=== PATIENT | female | born 1940 | race Two or more races ===

== ENCOUNTER → 2020-12-16 | Outpatient (CLI) | payer MEDICARE ==
[2020-12-16 13:03] LABS: Basophils # (A) 0.1 k/uL (0-0.2); Basophils % (A) 1 %; Eosinophils # (A) 0.3 k/uL (0-0.7); Eosinophils % (A) 3 %; HCT 42.8 % (34.0-46.0); HGB 13.7 gm/dL (11.4-16.0); Lymphocytes # (A) 2.5 k/uL (1.0-4.8); Lymphocytes % (A) 26 %; MCH 29.7 pg (25.0-35.0); MCV 92.9 fL (80.0-100.0); Mean Platelet Volume 6.6; Monocytes # (A) 0.5 k/uL (0-1.0); Monocytes % (A) 5 %; Neutrophils # (A) 6.2 k/uL (1.3-7.7); Neutrophils % (A) 64 %; Platelet Count 406 k/uL (150-450); RBC 4.61 m/uL (3.80-5.40); RDW 13.5 % (11.5-15.5); WBC 9.7 k/uL (3.8-10.6)
[2020-12-16 13:14] LABS: Appearance,Urine Clear (Clear); Bacteria,Urine Rare /hpf; Bilirubin,Urine Negative (Negative); Blood,Urine Negative (Negative); Color,Urine Yellow; Glucose,Urine (UA) Negative (Negative); Hyaline Casts,Urine 3 /lpf (0-2); Ketones,Urine Negative (Negative); Leukocyte Esterase,Urine Large (Negative); Mucus,Urine Rare /hpf; Nitrite,Urine Negative (Negative); Protein,Urine Trace (Negative); RBC,Urine 2 /hpf (0-5); Squamous Epithelial Cell,Urine 5 /hpf (0-4); Urobilinogen,Urine <2.0 mg/dL (<2.0); WBC,Urine 9 /hpf (0-5)
[2020-12-16 13:21] LABS: Albumin 4.2 g/dL (3.5-5.0); Calcium 10.6 mg/dL (8.4-10.2); Potassium 3.8 mmol/L (3.5-5.1); Total Bilirubin 0.5 mg/dL (0.2-1.3); Total Protein 6.6 g/dL (6.3-8.2)
[2020-12-16 13:26] LABS: INR 0.9 (<1.2); Partial Thromboplastin Time 25.1 sec (22.0-30.0); Prothrombin Time 9.7 sec (9.0-12.0)
== END | disposition home or self-care (01) ==
LOC: LABPAT 11:46
PROVIDERS: ATTEND Orthopaedic Surgery Orthopaedic Surgery of the Spine
DX: Z01.818 Encounter for other preprocedural examination (principal); M48.02 Spinal stenosis, cervical region
CPT/HCPCS: 36415; 80053; 81001; 85025; 85610; 85730; 86850; 86900; 86901

== ENCOUNTER 2020-12-23 07:31 | Day surgery (SDC) | payer MEDICARE ==
[2020-12-22 09:40] VITALS: BMI 20.2
[~2020-12-23 07:31] MED LIST: DEXAMETHASONE SOD PHOSPHATE 4 MG/ML 1 ML VIAL IV PRN; LIDOCAINE 1% (10MG/ML) FOR IV START INTRADERMA PRN; ONDANSETRON 4 MG/2 ML VIAL IVP PRN; ceFAZolin 1,000 MG in SODIUM CHLORIDE 0.9% IRRIGATIO 1,000 ML IRRIGATION PRN
[2020-12-23] MEDS: ONDANSETRON 4 MG/2 ML VIAL IVP PRN ×2 (08:20→11:20)
[2020-12-23] MEDS: LACTATED RINGERS 1,000 ML IV SCH ×2 (08:20→22:04)
[2020-12-23] MEDS ORDERED: PROPOFOL 10 MG/ML 20 ML VIAL IV ONE (08:26)
[2020-12-23] MEDS ORDERED: DEXAMETHASONE SOD PHOSPHATE 10 MG/ML 1 ML VIAL ONE (08:26)
[2020-12-23] MEDS ORDERED: MIDAZOLAM 2 MG/2 ML VIAL ONE (08:26)
[2020-12-23] MEDS ORDERED: LIDOCAINE 1% INJ 10MG/ML (20 ML MDV) ONE (08:26)
[2020-12-23] MEDS ORDERED: ROCURONIUM 10 MG/ML (5 ML VIAL) IV ONE (08:26)
[2020-12-23] MEDS ORDERED: fentaNYL (PF) 50 MCG/ML 2 ML AMP ONE (08:26)
[2020-12-23] MEDS ORDERED: SUCCINYLCHOLINE CHLORIDE 100 MG/5 ML SYR IV ONE (08:26)
[2020-12-23] MEDS ORDERED: ePHEDrine SULFATE/0.9% NACL/PF 50 MG/5 ML SYRINGE IV ONE (08:26)
[2020-12-23] MEDS ORDERED: GELATIN SPONGE,ABSORB (LARGE) 1 EACH SPONGE TOPICAL ONE (08:28)
[2020-12-23] MEDS ORDERED: THROMBIN (BOVINE) 5,000 UNIT VIAL TOPICAL ONE (08:28)
[2020-12-23] MEDS ORDERED: LIDOCAINE 0.5%-EPI 1:200,000 50 ML VIAL SQ ONE (08:28)
[2020-12-23] MEDS ORDERED: LACTATED RINGERS 1,000 ML IV ONE (09:07)
--- NOTE | 2020-12-23 09:47 | XR ---
EXAMINATION TYPE: XR cervical spine 1V DATE OF EXAM: 12/23/2020 COMPARISON: NONE HISTORY: Needle placement TECHNIQUE: One view submitted FINDINGS: There is a significant anterolisthesis of L4 on L5 measuring 4 oh meters. Metallic instrume nt is seen anterior to the L4-L5 disc interspace. Endotracheal tube suggested. Prevertebral soft tiss ue thickening noted. IMPRESSION: Intraoperative localization
[2020-12-23] MEDS: HYDROmorphone 0.5 MG/0.5 ML SYRINGE IVP PRN ×4 (11:20→11:46)
[2020-12-23] MEDS ORDERED: MAGNESIUM HYDROXIDE 2,400 MG/10 ML CUP PO PRN (11:23)
[2020-12-23] MEDS ORDERED: HYDROmorphone 0.5 MG/0.5 ML SYRINGE IVP PRN (11:23)
[2020-12-23] MEDS ORDERED: ONDANSETRON 4 MG/2 ML VIAL IVP PRN (11:23)
[2020-12-23] MEDS ORDERED: ACETAMINOPHEN TAB 325 MG TAB PO PRN (11:23)
[2020-12-23] MEDS ORDERED: ZOLPIDEM 5 MG TAB PO PRN (11:25)
--- NOTE | 2020-12-23 11:32 | P.OP ---
Date of Procedure: 12/23/20 Preoperative Diagnosis: Severe cervical stenosis C3/4, C4/5,C5/6
--- NOTE | 2020-12-23 11:40 | P.OP ---
Date of Procedure: 12/23/20 Preoperative Diagnosis: Cervical myelopathy, severe cervical stenosis C3 4 C4 5 C5 6, myelomalacia, spondylolisthesis C3 4 C4 5, degenerative disc disease, upper extremity radiculopathy, upper extremity weakness, neck pain Postoperative Diagnosis: Same Anesthesia: GETA Pathology: none sent Condition: stable Disposition: PACU Description of Procedure: BRIEF OPERATIVE NOTE Preoperative Diagnosis:Cervical myelopathy, severe cervical stenosis C3 4 C4 5 C5 6, myelomalacia, spondylolisthesis C3 4 C4 5, degenerative disc disease, upper extremity radiculopathy, upper extremity weakness, neck pain, cervical kyphosis Postoperative Diagnosis:Cervical myelopathy, severe cervical stenosis C3 4 C4 5 C5 6, myelomalacia, spondylolisthesis C3 4 C4 5, degenerative disc disease, upper extremity radiculopathy, upper extremity weakness, neck pain, cervical kyphosis Procedure: Anterior cervical decompression with discectomy and with partial C4 corpectomy with approximate two thirds of the C4 vertebral body removed and fusion C3 4 C4 5 C5 6 Placement of interbody graft C3 4 C4 5 C5 6 Application of anterior cervical plate C3 4 5 and 6 Surgeon: Dr. Christianson [employer] Attendant: Orestes Rosado is present throughout the entire the case persistence during positioning, dissection, exposure, visualization, and all crucial elements of the case as well as closure. Anesthesia: General anesthesia Estimated blood loss: Approximately 100 mL Complications: None apparent Components implanted: K2M [place] anterior cervical plate system with screws and Vikos interbody allograft bone graft with 1 mL of DBX bone putty Disposition: To recovery room in good stable condition. OPERATIVE INDICATIONS The patient has had long-standing issues in their neck and upper extremities. The patient was having significant worsening of her neck and her upper extremities and was having weakness at her upper extremities. She is also having some changes consistent with myelopathy with her balance and dexterity. She is found have severe cervical stenosis with deformity at her cervical spine and cervical kyphosis. She had some dynamic instability at her cervical spine as well. The patient has been through conservative treatment. She was having worsening of her symptoms haven't increasing problems with her upper extremities. I thought she had significant myelopathy and stenosis which correlated well with her exam findings. We discussed the possibility of anterior cervical decompression and fusion with positive corpectomy as well as the possibility of need for posterior cervical surgery to supplement the fixation and stabilization. We discussed various treatment options including surgery, and the patient wishes to proceed with surgery We discussed the risk, patient's alternatives and benefits of surgery including but not limited to, risk of bleeding risk of infection, risk of need for further surgery, risk of decreased, loss of motion, muscle function, malunion nonunion, hardware failure, nerve damage, paralysis, heart attack, and . OPERATIVE SUMMARY After discussing all the risks, patient alternatives and benefits at length, the patient elected to proceed with surgical intervention, signed informed consent, and presented for their procedure. The patient was seen and examined in the preoperative holding area and the surgical site was marked. The patient was given antibiotics and brought to the operating room. The patient was positioned on the operating room table in a supine position being careful to pad any bony prominences and pressure points. The patient was sedated and intubated by anesthesia in standard fashion. Once the airway and C- spine were stabilized the patient's arms were padded and tucked at her side, with her shoulders gently taped. The head was placed in a donut pad with the neck in good neutral alignment and position. We were careful to maintain the patient's cervical spine and good neutral alignment and position throughout. The patient was prepped and draped in a normal standard fashion. An appropriate timeout and keystone protocol performed. We were able to proceed with the surgery. The local wound area was infiltrated with local anesthetic. An incision was made transversely approximately 2-1/2 cm over the appropriate levels at C4 5. Dissection was taken down subcutaneously to the level of the platysma which was split in line with its fibers. Dissection was taken with a carotid approach, with the trachea and esophagus medial and the carotid sheath laterally. We dissected down to the anterior surface of the vertebral bodies. Intraoperative x-ray was taken which showed a marker at the appropriate level at C4 5. With the appropriate level positively confirmed, we were able to proceed with discectomy at the appropriate levels. It was obvious that there was a significant listhesis at C4 5. Throughout the case and do minimal use of Bovie cauterization as the patient does have a spinal cord stimulator intact. He is primarily bipolar cauterization. All of the operative levels were exposed appropriately from C3 to C6. The patient had all their twitches back, and there was no evidence of recurrent laryngeal issue. The wound was copiously irrigated and suctioned dry as had been done periodically throughout the case. At the appropriate level/levels, I established an annulotomy with an 11 blade scalpel. A discectomy was performed with a combination of pituitary rongeurs, curettes, a high-speed bur, and Kerrison rongeurs. There was very large disc herniation with severe stenosis at C3 4 and at C4 5. Bone was significantly thin and somewhat soft. The posterior longitudinal ligament was taken down as were any posterior osteophytes. I was able to provide decompression with a discectomy and removal posterior longitudinal ligament as well as any posterior osteophytes. I had is a very significant portions of C4 superiorly and inferiorly to get good decompression at C3 4 and behind the C4 vertebral body as well as at C4 5. In total I removed approximately 60% of the vertebral body of C4. I felt there was some portions at the center of C4 vertebral body were was adequate for the neurologic structures and I did not feel that I had to provide full 100% corpectomy. I removed posterior osteophytes as well as the extruded disc and posterior longitudinal ligament. This gave good central and bilateral foraminal decompression. There is no evidence of any dural tear or leak. The endplates were prepared with a high-speed bur. With the endplates in good parallel position, I was able to size for the appropriate size interbody graft. I left the disc spaces open until I placed the C5 6 interbody allograft. I was unable to move cephalad to C4 5 and then C3 4. The wound was irrigated and suctioned dry the graft was prepared and malleted into position. It had good alignment and position with the anterior surface flush with the anterior surface of the vertebral bodies. The patient did had significant deformity with her listhesis but we were able to correct some of this with placement of the grafts. This was done similarly the appropriate levels first at C3 4 than at C4 5 than at C5 6. With the grafts intact, I was able to measure and contour and appropriate sized plate. The plate was positioned at the midline over the appropriate levels from C3 to C6. Screw holes were established with a hand drill and drill guide. Screws were placed in good alignment and position with adequate bony purchase. I was able get some further reduction with placement of the screw and hardware and plate. I was only able to get 1 screw in the vertebral body of remainder of C4 as we done a subtotal corpectomy at that level. They were seated under the locking device. The construct was checked and found to be stable. Intraoperative x-ray was taken which showed good alignment and position of the implants at the appropriate levels. There was no evidence of any dural tear or leak. Good hemostasis was maintained. The wound was copiously irrigated and suctioned dry as had been done periodically throughout the case. The platysma was closed with absorbable suture. The subcutaneous tissue was closed. The subcuticular tissue was closed with absorbable suture. The wound was cleaned and dried and dressed appropriately. A soft cervical collar was placed appropriately. The patient was woken up by anesthesia, extubated, transferred back gently to their hospital bed and brought to the recovery room in good stable condition. The patient will be admitted to the hospital for appropriate postoperative care, medical management and monitoring. We will continue to follow them closely about the postoperative course.
--- NOTE | 2020-12-23 12:11 | XR ---
EXAMINATION TYPE: XR cervical spine 1V DATE OF EXAM: 12/23/2020 COMPARISON: 12/24/2019 HISTORY: Postop TECHNIQUE: One view submitted FINDINGS: ET tube noted. Postsurgical change involving the cervical spine with multilevel diffuse ost eopenia and degenerative disc disease. Facet arthropathy noted. Alignment near-anatomic. IMPRESSION: Postop
[2020-12-23] MEDS: SODIUM CHLORIDE 0.9% 1,000 ML IV SCH (15:49)
[2020-12-23] MEDS: BENZOCAINE/MENTHOL LOZENG 1 EACH LOZENGE MUCOUS MEM PRN ×2 (18:05→20:14)
[2020-12-23] MEDS: HYDROcodone/APAP 5-325MG 1 EACH TAB PO PRN (18:05)
[2020-12-23] MEDS: NITROFURANTOIN MONOHYD/M-CRYST 100 MG CAP PO SCH (20:13)
[2020-12-23] MEDS: ASCORBIC ACID 500 MG TAB PO SCH (20:13)
[2020-12-23] MEDS: GABAPENTIN 300 MG CAP PO SCH (20:13)
[2020-12-23] MEDS: GLYCOPYRROLATE 1 MG TAB PO SCH (20:13)
[2020-12-23 20:52] VITALS: PULSE 99
[2020-12-24] MEDS: SODIUM CHLORIDE 0.9% 1,000 ML IV SCH (02:28)
[2020-12-24 05:08] VITALS: BP 150/77; RESP 14; TEMP 99.1
[2020-12-24] MEDS: ASCORBIC ACID 500 MG TAB PO SCH (08:56)
[2020-12-24] MEDS: GABAPENTIN 300 MG CAP PO SCH (08:56)
[2020-12-24] MEDS: HYDROcodone/APAP 5-325MG 1 EACH TAB PO PRN (08:57)
[2020-12-24] MEDS: GLYCOPYRROLATE 1 MG TAB PO SCH (08:58)
[2020-12-24] MEDS: NITROFURANTOIN MONOHYD/M-CRYST 100 MG CAP PO SCH (08:58)
[2020-12-24] MEDS ORDERED: CHOLECALCIFEROL 25 MCG (1000 IU) TABLET PO SCH (09:00)
[2020-12-24] MEDS ORDERED: ASPIRIN 81 MG PO SCH (09:00)
[2020-12-24] MEDS ORDERED: MULTIVITAMINS, THERA 1 EACH TAB PO SCH (09:00)
[2020-12-24] MEDS ORDERED: SENNOSIDES-DOCUSATE SODIUM 1 EACH TAB PO SCH ×2 (09:00)
[2020-12-24] MEDS ORDERED: ATORVASTATIN 20 MG TAB PO SCH (09:00)
[2020-12-24] MEDS ORDERED: FLUTICASONE 50MCG/SPRAY NASAL 16GM EA NOSTRIL SCH (09:00)
[2020-12-24] MEDS ORDERED: ESCITALOPRAM 10 MG TAB PO SCH (09:00)
--- NOTE | 2020-12-24 10:02 | P.DS ---
Providers Date of admission: 12/24/20 Attending physician: Ambrose Christianson Primary care physician: Ama [facility] Course: The patient presented on the day of admission as per their operative note. She has cervical myelopathy with severe cervical stenosis and underwent cervical decompression and fusion at C3 4 C4 5 and C5 6 per her operative note. She says her arms are feeling less tingly today. She has a sore throat but she is tolerating her soft diet. She is breathing comfortably. Physical Exam The incision site is clean dry and intact. There is no erythema no drainage. There is no purulence no evidence of infection. Her neck is soft and supple. There is no significant swelling. Abdomen soft and nontender. Chest has good excursion with deep inspiration and expiration. The patient has active and passive range of motion intact at the upper and lower extremities. There is no acute change in neurologic status. She has good motion at her upper extremities Hospital Course Postoperative day #1 status post anterior cervical decompression with discectomy and fusion at C3 through 4 C4 5 C5 6 for her severe cervical stenosis with cervical myelopathy and spondylolisthesis as well as upper extremity radiculopathy and weakness. The patient has been making good progress postoperatively. They have completed the prophylactic antibiotics without any signs or symptoms of infection. The patient has been able to advance their diet, and is tolerating diet adequately. She still feels she has a bit of a lump in her throat that she is breathing 100 comfortably on room air and tolerating her diet well. The pain was initially controlled with IV medications and is now controlled appropriately with oral medications. The patient has been able to increase their mobilization. The patient has progressed appropriately. I think they are in good stable condition for discharge today. They will be sent home with appropriate prescriptions. I answered their questions to the best of my ability in a language that they can understand and they are agreeable with the plan. They will follow up as directed in approximately 1 week. Patient Condition at Discharge: Good Plan - Discharge Summary Discharge Rx Participant: No New Discharge Prescriptions: New Benzocaine/Menthol Lozeng [Cepacol lozenge] 1 each MUCOUS MEM Q6HR PRN #60 lozenge PRN Reason: Sore Throat HYDROcodone/APAP 10-325MG [[place] 10-325] 1 tab PO Q8HR PRN #21 tab PRN Reason: Pain No Action Multivitamins, Thera [Multivitamin] 1 tab PO DAILY Zolpidem [Ambien] 5 mg PO HS PRN PRN Reason: trouble sleeping Aspirin [Adult Low Dose Aspirin EC] 81 mg PO DAILY Gabapentin 600 mg PO BID Nitrofurantoin Macrocrystal [Nitrofurantoin] 100 mg PO BID HYDROcodone/APAP 10-325MG [[place] 10-325] 1 tab PO BID Glycopyrrolate [Robinul] 1 mg PO BID Fluticasone Nasal [place] [Flonase Nasal [place]] 1 spray EA NOSTRIL DAILY Escitalopram [Lexapro] 10 mg PO DAILY Cholecalciferol [Vitamin D3 (25 Mcg = 1000 Iu)] 25 mcg PO DAILY Atorvastatin [Lipitor] 20 mg PO DAILY Ascorbic Acid [Vitamin C] 500 mg PO BID Discharge Medication List Aspirin [Adult Low Dose Aspirin EC] 81 mg PO DAILY 08/22/16 [History] Gabapentin 600 mg PO BID 08/22/16 [History] Multivitamins, Thera [Multivitamin] 1 tab PO DAILY 08/22/16 [History] Zolpidem [Ambien] 5 mg PO HS PRN 08/22/16 [History] Ascorbic Acid [Vitamin C] 500 mg PO BID 12/22/20 [History] Atorvastatin [Lipitor] 20 mg PO DAILY 12/22/20 [History] Cholecalciferol [Vitamin D3 (25 Mcg = 1000 Iu)] 25 mcg PO DAILY 12/22/20 [History] Escitalopram [Lexapro] 10 mg PO DAILY 12/22/20 [History] Fluticasone Nasal [place] [Flonase Nasal [place]] 1 spray EA NOSTRIL DAILY 12/22/20 [History] Glycopyrrolate [Robinul] 1 mg PO BID 12/22/20 [History] HYDROcodone/APAP 10-325MG [[place] 10-325] 1 tab PO BID 12/22/20 [History] Nitrofurantoin Macrocrystal [Nitrofurantoin] 100 mg PO BID 12/22/20 [History] Benzocaine/Menthol Lozeng [Cepacol lozenge] 1 each MUCOUS MEM Q6HR PRN #60 lozenge 12/24/20 [Rx] HYDROcodone/APAP 10-325MG [[place] 10-325] 1 tab PO Q8HR PRN #21 tab 12/24/20 [Rx] Follow up Appointment(s)/Referral(s): Ambrose Christianson, [Doctor of Osteopathic Medicine] - 01/01/21 (Follow-up with Dr. Christianson on January 01) Activity/Diet/Wound Care/Special Instructions: Keep site clean. May shower with waterproof Tegaderm intact. Do not soak in a tub. After 72 hours postoperatively, patient May remove dressing and then may shower with area uncovered. Leave Steri-Strips intact and allow them to fray off on their own. May ambulate as tolerated. Avoid heavy or rigorous activity. No repetitive bending twisting or lifting. No overhead work. Keep hard collar intact. May remove for bathing. Patient should sleep with a hard cervical collar and intact. Discharge Disposition: HOME SELF-CARE
== END 2020-12-24 11:50 | disposition home or self-care (01) ==
LOC: OR 07:31 → 5NMEDONC 11:09 → OR 12-24 11:50
PROVIDERS: ATTEND Orthopaedic Surgery Orthopaedic Surgery of the Spine
DX: M48.02 Spinal stenosis, cervical region (principal); G95.89 Other specified diseases of spinal cord; M47.12 Other spondylosis with myelopathy, cervical region; M47.22 Other spondylosis with radiculopathy, cervical region; M50.021 Cervical disc disorder at C4-C5 level with myelopathy; M50.121 Cervical disc disorder at C4-C5 level with radiculopathy; M40.292 Other kyphosis, cervical region; M25.78 Osteophyte, vertebrae; Z79.899 Other long term (current) drug therapy; I10 Essential (primary) hypertension; R51.9 Headache, unspecified; G57.60 Lesion of plantar nerve, unspecified lower limb; R25.1 Tremor, unspecified; K30 Functional dyspepsia; Z88.0 Allergy status to penicillin; Z88.8 Allergy status to other drugs, medicaments and biological substances; Z98.890 Other specified postprocedural states
CPT/HCPCS: 87635; 72020; 22551; 22552 ×2; C1713 ×2; C1762 ×2; J2250; J1100 ×2; J0690 ×2; J2405; J2001; J3010; J0330; J2704; J1170; 36415; 86850; 86900; 86901

== ENCOUNTER 2021-01-02 10:48 | Inpatient (IN) | payer MEDICARE ==
[2021-01-02] MEDS ORDERED: MORPHINE SULFATE 4 MG/ML SYRINGE IV STA (11:09)
[2021-01-02] MEDS ORDERED: SODIUM CHLORIDE 0.9% 1,000 ML IV STA ×2 (11:09)
--- NOTE | 2021-01-02 11:10 | ED ---
Neck Injury/Pain HPI - General Chief Complaint: Neck Pain/Injury Stated Complaint: Pasia Time Seen by Provider: 01/02/21 11:09 Source: RN notes reviewed, old records reviewed, Caregiver Mode of arrival: wheelchair Limitations: no limitations - History of Present Illness Initial Comments: This is an 6-year-old female DF for evaluation patient resents today for evaluation regards to back pain. Persistent neck pain here in the emergency department. Patient is recent C-spine patient about a week was also had multiple episodes of urinary tract infections, patient was sent in by family doctor for evaluation regarding postoperative complications of C-spine surgery. MD Complaint: neck pain, other (Patient recently with neck surgery) -: week(s) Place: home Radiation: upper back Severity: intermittent Severity scale (1-10): 4 Quality: dull Consistency: intermittent Improves With: immobilization Worsens With: none Context: other (Recent surgery) Associated Symptoms: none - Related Data Home Medications Medication Instructions Recorded Confirmed Aspirin [Adult Low Dose Aspirin EC] 81 mg PO DAILY 08/22/16 12/22/20 Gabapentin 600 mg PO BID 08/22/16 12/23/20 Multivitamins, Thera [Multivitamin] 1 tab PO DAILY 08/22/16 12/23/20 Zolpidem [Ambien] 5 mg PO HS PRN 08/22/16 12/23/20 Ascorbic Acid [Vitamin C] 500 mg PO BID 12/22/20 12/23/20 Atorvastatin [Lipitor] 20 mg PO DAILY 12/22/20 12/23/20 Cholecalciferol [Vitamin D3 (25 25 mcg PO DAILY 12/22/20 12/23/20 Mcg = 1000 Iu)] Escitalopram [Lexapro] 10 mg PO DAILY 12/22/20 12/23/20 Fluticasone Nasal [place] [Flonase 1 spray EA NOSTRIL DAILY 12/22/20 12/23/20 Nasal [place]] Glycopyrrolate [Robinul] 1 mg PO BID 12/22/20 12/23/20 HYDROcodone/APAP 10-325MG [[place] 1 tab PO BID 12/22/20 12/23/20 10-325] Nitrofurantoin Macrocrystal 100 mg PO BID 12/22/20 12/23/20 [Nitrofurantoin] Previous Rx's Medication Instructions Recorded Benzocaine/Menthol Lozeng [Cepacol 1 each MUCOUS MEM Q6HR PRN #60 12/24/20 lozenge] lozenge HYDROcodone/APAP 10-325MG [[place] 1 tab PO Q8HR PRN #21 tab 12/24/20 10-325] Allergies Allergy/AdvReac Type Severity Reaction Status Date / Time baclofen Allergy Unknown Verified 01/02/21 11:01 latex Allergy Swelling Verified 01/02/21 11:01 Penicillins Allergy Nausea & Verified 01/02/21 11:01 Vomiting quinine Allergy Rapid Verified 01/02/21 11:01 Heart Rate Review of Systems ROS Statement: Those systems with pertinent positive or pertinent negative responses have been documented in the HPI. ROS Other: All systems not noted in ROS Statement are negative. Past Medical History Past Medical History: Hyperlipidemia, Osteoarthritis (OA) Additional Past Medical History / Comment(s): HX SPINAL STENOSIS/OSTEOARTHRITIS History of Any Multi-Drug Resistant Organisms: None Reported Past Surgical History: Back Surgery Additional Past Surgical History / Comment(s): HX HAND NEUROMA LEFT FOOT/ BILAT CATARACTS REMOVED AND GLAUCOMA, neck surgery Past Psychological History: Anxiety Smoking Status: Current every day smoker Past Alcohol Use History: None Reported Past Drug Use History: None Reported - Past Family History Mother Family Medical History: Dementia Additional Family Medical History / Comment(s): AGE 97 OF NATURAL CAUSES Brother(s) Family Medical History: Cancer Additional Family Medical History / Comment(s): HX ASBESTOS Sister(s) Family Medical History: CVA/TIA Daughter(s) Additional Family Medical History / Comment(s): ANXIETY/SCOLIOSIS Son(s) Additional Family Medical History / Comment(s): HX HEMOCHROMATOSIS General Exam - General Exam Comments Initial Comments: Patient presents wearing a c-collar and a bandage surgical site Limitations: no limitations General appearance: alert, in no apparent distress, anxious Head exam: Present: atraumatic, normocephalic, normal inspection Eye exam: Present: normal appearance, PERRL, EOMI. Absent: scleral icterus, conjunctival injection, periorbital swelling ENT exam: Present: normal exam, mucous membranes moist Neck exam: Present: normal inspection. Absent: tenderness, meningismus, ly mphadenopathy Respiratory exam: Present: normal lung sounds bilaterally. Absent: respiratory distress, wheezes, rales, rhonchi, stridor Cardiovascular Exam: Present: normal rhythm, tachycardia, normal heart sounds. Absent: systolic murmur, diastolic murmur, rubs, gallop, clicks GI/Abdominal exam: Present: soft, normal bowel sounds. Absent: distended, tenderness, guarding, rebound, rigid Extremities exam: Present: normal inspection, full ROM, normal capillary refill. Absent: tenderness, pedal edema, joint swelling, calf tenderness Back exam: Present: normal inspection Neurological exam: Present: alert, oriented X3, CN II-XII intact Psychiatric exam: Present: normal affect, normal mood Skin exam: Present: warm, dry, intact, normal color. Absent: rash Course Vital Signs 01/02/21 01/02/21 11:01 12:25 Temperature 99.3 F Pulse Rate 111 H 90 Respiratory 18 18 Rate Blood Pressure 124/76 166/81 O2 Sat by Pulse 94 L 93 L Oximetry - Reevaluation(s) Reevaluation #1: 01/02/21 13:30 Medical record is reviewed Reevaluation #2: 01/02/21 13:30 She has no significant neurological findings Reevaluation #3: 01/02/21 13:30 Spoke with patient and daughter regarding findings here in the ER, questions answered - Consultations Consultation #1: Spoke with Dr. Christianson who will agree to admit this patient for surgery Medical Decision Making - Medical Decision Making 80 female DF for evaluation of postoperative complications. Patient be admitted for Dr. Christianson to reevaluate injury - Lab Data Result diagrams: 01/02/21 11:49 01/02/21 11:49 Lab Results 01/02/21 01/02/21 01/02/21 Range/Units 11:49 11:49 11:49 WBC 10.8 H (3.8-10.6) k/uL RBC 4.01 (3.80-5.40) m/uL Hgb 11.8 (11.4-16.0) gm/dL Hct 36.4 (34.0-46.0) % MCV 90.9 (80.0-100.0) fL MCH 29.5 (25.0-35.0) pg MCHC 32.4 (31.0-37.0) g/dL RDW 13.7 (11.5-15.5) % Plt Count 520 H (150-450) k/uL MPV 6.5 Neutrophils % 68 % Lymphocytes % 20 % Monocytes % 6 % Eosinophils % 3 % Basophils % 1 % Neutrophils # 7.3 (1.3-7.7) k/uL Lymphocytes # 2.2 (1.0-4.8) k/uL Monocytes # 0.7 (0-1.0) k/uL Eosinophils # 0.4 (0-0.7) k/uL Basophils # 0.1 (0-0.2) k/uL PT 9.7 (9.0-12.0) sec INR 0.9 (<1.2) APTT 25.2 (22.0-30.0) sec Sodium 140 (137-145) mmol/L Potassium 3.4 L (3.5-5.1) mmol/L Chloride 100 (98-107) mmol/L Carbon Dioxide 33 H (22-30) mmol/L Anion Gap 7 mmol/L BUN 24 H (7-17) mg/dL Creatinine 1.45 H (0.52-1.04) mg/dL Est GFR (CKD-EPI)AfAm 39 (>60 ml/min/1.73 sqM) Est GFR (CKD-EPI)NonAf 34 (>60 ml/min/1.73 sqM) Glucose 99 (74-99) mg/dL Calcium 9.7 (8.4-10.2) mg/dL Phosphorus 4.5 (2.5-4.5) mg/dL Magnesium 1.9 (1.6-2.3) mg/dL Total Bilirubin 0.5 (0.2-1.3) mg/dL AST 23 (14-36) U/L ALT 10 (4-34) U/L Alkaline Phosphatase 83 (38-126) U/L Troponin I (0.000-0.034) ng/mL Total Protein 6.2 L (6.3-8.2) g/dL Albumin 3.7 (3.5-5.0) g/dL 01/02/21 Range/Units 11:49 WBC (3.8-10.6) k/uL RBC (3.80-5.40) m/uL Hgb (11.4-16.0) gm/dL Hct (34.0-46.0) % MCV (80.0-100.0) fL MCH (25.0-35.0) pg MCHC (31.0-37.0) g/dL RDW (11.5-15.5) % Plt Count (150-450) k/uL MPV Neutrophils % % Lymphocytes % % Monocytes % % Eosinophils % % Basophils % % Neutrophils # (1.3-7.7) k/uL Lymphocytes # (1.0-4.8) k/uL Monocytes # (0-1.0) k/uL Eosinophils # (0-0.7) k/uL Basophils # (0-0.2) k/uL PT (9.0-12.0) sec INR (<1.2) APTT (22.0-30.0) sec Sodium (137-145) mmol/L Potassium (3.5-5.1) mmol/L Chloride (98-107) mmol/L Carbon Dioxide (22-30) mmol/L Anion Gap mmol/L BUN (7-17) mg/dL Creatinine (0.52-1.04) mg/dL Est GFR (CKD-EPI)AfAm (>60 ml/min/1.73 sqM) Est GFR (CKD-EPI)NonAf (>60 ml/min/1.73 sqM) Glucose (74-99) mg/dL Calcium (8.4-10.2) mg/dL Phosphorus (2.5-4.5) mg/dL Magnesium (1.6-2.3) mg/dL Total Bilirubin (0.2-1.3) mg/dL AST (14-36) U/L ALT (4-34) U/L Alkaline Phosphatase (38-126) U/L Troponin I 0.017 (0.000-0.034) ng/mL Total Protein (6.3-8.2) g/dL Albumin (3.5-5.0) g/dL - EKG Data -: EKG Interpreted by Me (EKG is sinus rhythm 94 AR 154 QRS 76 QTC 465) - Radiology Data Radiology results: report reviewed (CT C-spine does show loosening of prior surgical hardware and screw), image reviewed Disposition Clinical Impression: Postoperative complication Narrative: Movement of Hardware after Cspine Sx Disposition: ADMITTED IP TO THIS HOSP Condition: Fair Is patient prescribed a controlled substance at d/c from ED?: No Referrals: Ama Frederick MD [Primary Care Provider] - 1-2 days
[2021-01-02 12:03] LABS: Basophils # (A) 0.1 k/uL (0-0.2); Basophils % (A) 1 %; Eosinophils # (A) 0.4 k/uL (0-0.7); Eosinophils % (A) 3 %; HCT 36.4 % (34.0-46.0); HGB 11.8 gm/dL (11.4-16.0); Lymphocytes # (A) 2.2 k/uL (1.0-4.8); Lymphocytes % (A) 20 %; MCH 29.5 pg (25.0-35.0); MCHC 32.4 g/dL (31.0-37.0); MCV 90.9 fL (80.0-100.0); Mean Platelet Volume 6.5; Monocytes # (A) 0.7 k/uL (0-1.0); Monocytes % (A) 6 %; Neutrophils # (A) 7.3 k/uL (1.3-7.7); Neutrophils % (A) 68 %; Platelet Count 520 k/uL (150-450); RBC 4.01 m/uL (3.80-5.40); RDW 13.7 % (11.5-15.5); WBC 10.8 k/uL (3.8-10.6)
[2021-01-02 12:15] LABS: Albumin 3.7 g/dL (3.5-5.0); Calcium 9.7 mg/dL (8.4-10.2); Magnesium 1.9 mg/dL (1.6-2.3); Phosphorus 4.5 mg/dL (2.5-4.5); Potassium 3.4 mmol/L (3.5-5.1); Total Bilirubin 0.5 mg/dL (0.2-1.3); Total Protein 6.2 g/dL (6.3-8.2)
[2021-01-02 12:26] LABS: INR 0.9 (<1.2); Partial Thromboplastin Time 25.2 sec (22.0-30.0); Prothrombin Time 9.7 sec (9.0-12.0)
--- NOTE | 2021-01-02 13:19 | CT ---
EXAMINATION TYPE: CT cervical spine wo con DATE OF EXAM: 01/02/2021 COMPARISON: Postoperative crosstable lateral view 12/23/2020 HISTORY: Pain, s/p surgery CT DLP: 359.[address] of the cervical spine was performed with bone and soft tissue window settings submitted . Coronal and sagittal reconstruction is obtained. There has been recent anterior cervical discectomy and fusion extending from C3 through C6. There is ventral migration of the fixation plate with a gap of approximately 6.4 mm relative to the anterior c ervical vertebral body margin. There appears to be collapse of the C4 segment with instability of the intervertebral spacers. The C3-4 intervertebral spacer is angulated cranially. Mild angulation is al so noted of the C5-6 intervertebral spacer. The C4-5 intervertebral spacer appears to have migrated v entrally. There is also cortical irregularity involving the anterior margin of the C5 vertebral segme nt which may reflect fracture. There is 2 mm anterolisthesis of C3 on C4 and 3.4 mm anterolisthesis o f C4 and C5. Spinal canal appears capacious without central stenosis or obvious disc herniation. IMPRESSION: 1. There is evidence of screw loosening extending from C3 through C6 with ventral migration of the fi xation plate and instability of the intervertebral body spacers. As noted there is at least partial c ollapse of the C4 segment and lucency involving the anterior margin of the C5 segment which may refle ct fracture or distraction injury. See above.
--- NOTE | 2021-01-02 13:51 | P.HPOR ---
History of Present Illness H&P Date: 01/02/21 Chief Complaint: Neck pain and upper extremity myelopathy The patient is a very pleasant 80-year-old female whose completed by her daughter. She is well known to our service as she has a history of cervical myelopathy and approximate 10 days ago underwent anterior cervical decompression with discectomy and fusion at C3 4 C4 5 and C5 6 for her severe stenosis and cervical deformity. We plan possible staging of surgery for stabilization with anterior and posterior fusion. I saw her yesterday in the office and it was noted that she had obvious displacement of her hardware and recurrence of her deformity. She is not having any new myelopathic or radicular symptoms. She was having some difficulty with her swallowing. We were able to readjust her cervical collar and her position but she was having continued issues today. I felt that she needed urgent revision of her decompression and fusion anteriorly with posterior stabilization and decompression. I discussed this with her and her daughter at length. We asked them to present to the hospital for further im aging and definitive surgical intervention. I discussed the risk of occasions alternatives and benefits with them. I discussed the nature of her cervical spine and her spinal cord issues as well as the fixation issues and the displacement of her fixation and the need for further stabilization. Answered their questions of us for ability and they are interested in proceeding with further surgical intervention today. Review of Systems She does not have any new weakness. She has good motion in her arms but has some clumsiness in her hands and fingers. This is not new for her. She has been able to swallow but she does get some feelings of nausea when she tries to eat. She had imaging yesterday at the office which showed displacement of her anterior cervical hardware and interbody grafts. She still has been taking medications for her urinary tract infection. She denies any chest pain or shortness of breath. Past Medical History Past Medical History: Hyperlipidemia, Osteoarthritis (OA) Additional Past Medical History / Comment(s): HX SPINAL STENOSIS/OSTEOARTHRITIS. Cervical myelopathy with upper extremity weakness status post anterior cervical decompression and fusion on 12/23/2020. Recurrent urinary tract infections History of Any Multi-Drug Resistant Organisms: None Reported Past Surgical History: Back Surgery Additional Past Surgical History / Comment(s): HX HAND NEUROMA LEFT FOOT/ BILAT CATARACTS REMOVED AND GLAUCOMA, neck surgery Past Psychological History: Anxiety Smoking Status: Current every day smoker Past Alcohol Use History: None Reported Past Drug Use History: None Reported - Past Family History Mother Family Medical History: Dementia Additional Family Medical History / Comment(s): AGE 97 OF NATURAL CAUSES Brother(s) Family Medical History: Cancer Additional Family Medical History / Comment(s): HX ASBESTOS Sister(s) Family Medical History: CVA/TIA Daughter(s) Additional Family Medical History / Comment(s): ANXIETY/SCOLIOSIS Son(s) Additional Family Medical History / Comment(s): HX HEMOCHROMATOSIS Medications and Allergies Home Medications Medication Instructions Recorded Confirmed Type Aspirin [Adult Low Dose Aspirin EC] 81 mg PO DAILY 08/22/16 12/22/20 History Gabapentin 600 mg PO BID 08/22/16 12/23/20 History Multivitamins, Thera [Multivitamin] 1 tab PO DAILY 08/22/16 12/23/20 History Zolpidem [Ambien] 5 mg PO HS PRN 08/22/16 12/23/20 History Ascorbic Acid [Vitamin C] 500 mg PO BID 12/22/20 12/23/20 History Atorvastatin [Lipitor] 20 mg PO DAILY 12/22/20 12/23/20 History Cholecalciferol [Vitamin D3 (25 25 mcg PO DAILY 12/22/20 12/23/20 History Mcg = 1000 Iu)] Escitalopram [Lexapro] 10 mg PO DAILY 12/22/20 12/23/20 History Fluticasone Nasal [place] [Flonase 1 spray EA NOSTRIL DAILY 12/22/20 12/23/20 History Nasal [place]] Glycopyrrolate [Robinul] 1 mg PO BID 12/22/20 12/23/20 History HYDROcodone/APAP 10-325MG [[place] 1 tab PO BID 12/22/20 12/23/20 History 10-325] Nitrofurantoin Macrocrystal 100 mg PO BID 12/22/20 12/23/20 History [Nitrofurantoin] Benzocaine/Menthol Lozeng [Cepacol 1 each MUCOUS MEM Q6HR PRN #60 12/24/20 Rx lozenge] lozenge HYDROcodone/APAP 10-325MG [[place] 1 tab PO Q8HR PRN #21 tab 12/24/20 Rx 10-325] Allergies Allergy/AdvReac Type Severity Reaction Status Date / Time baclofen Allergy Unknown Verified 01/02/21 11:01 latex Allergy Swelling Verified 01/02/21 11:01 Penicillins Allergy Nausea & Verified 01/02/21 11:01 Vomiting quinine Allergy Rapid Verified 01/02/21 11:01 Heart Rate Physical Examination Osteopathic Statement: *. No significant issues noted on an osteopathic structural exam other than those noted in the History and Physical/Consult. - C Spine: dermatomal strength & reflexes bilateral Shoulder strength: flexion: 4/5 (She has some global weakness at her upper extremity is. Her neck incision site is clear there is some mild swelling. She holds her neck in a flexed position and her hard collar is intact. She has some hyperreflexia at her upper extremities. Positive Jerrod's. Lower extremities have good dorsa) Shoulder strength: extension: 4/5 (Lower extremities have good dorsal flexion plantar flexion and EHL intact. Components are soft throughout. She stands on her own and is able to ambulate with standby assist.) Results - Labs Labs: Abnormal Lab Results - Last 24 Hours (Table) 01/02/21 01/02/21 Range/Units 11:49 11:49 WBC 10.8 H (3.8-10.6) k/uL Plt Count 520 H (150-450) k/uL Potassium 3.4 L (3.5-5.1) mmol/L Carbon Dioxide 33 H (22-30) mmol/L BUN 24 H (7-17) mg/dL Creatinine 1.45 H (0.52-1.04) mg/dL Total Protein 6.2 L (6.3-8.2) g/dL H & H 01/02/21 Range/Units 11:49 Hgb 11.8 (11.4-16.0) gm/dL Hct 36.4 (34.0-46.0) % Coagulation 01/02/21 Range/Units 11:49 INR 0.9 (<1.2) Result Diagrams: 01/02/21 11:49 01/02/21 11:49 - Diagnostic results CT scan - cervical: report reviewed (There may be some evidence of further compression anteriorly at C4 and at C5. There is fluid from surgical intervention.), image reviewed (We had x-rays in the office yesterday and she has a new computed tomography scan done in the emergency room today which shows obvious displacement of the hardware from C3 to C6. There is displacement of interbody allograft bone grafts at C3 4 and C4 5. There may be some evidence of further sumaya) Assessment and Plan Assessment: Cervical myelopathy Displacement of anterior cervical fixation from C3 to C6 status post anterior cervical decompression and fusion C3 to C6 done on 12/23/2020. Osseopenic bone Upper extremity weakness, chronic Cervical kyphotic deformity Neck pain and upper extremity radiculopathy Plan: Cervical myelopathy Displacement of anterior cervical fixation from C3 to C6 status post anterior cervical decompression and fusion C3 to C6 done on 12/23/2020. Osseopenic bone Upper extremity weakness, chronic Cervical kyphotic deformity Neck pain and upper extremity radiculopathy The patient has obvious displacement of her hardware from C3 to C6. She had undergone cervical decompression and fusion anteriorly on 12/23/2020 with plans for possible staged procedure for posterior stabilization. Unfortunately her hardware has displaced at the anterior cervical spine. She's not having further neurologic deficit but with the displacement and return of her cervical kyphosis I think that she requires urgent revision decompression and stabilization. I think the best process for stabilization would be to perform anterior and posterior stabilization in the operating room. She may need revision corpectomy and replacement of the hardware and will require posterior cervical decompress ion and fusion from C3 to C6. I discussed this with her and her daughter at length. Discussed the risk of occasions alternatives and benefits with them including but limited to the risk of bleeding risk of infection risk and need for further surgery risk of decreased loss of motion loss of function malunion nonunion hardware failure nerve damage paralysis heart attack in the possibly of was explained. I discussed the fact history may not alleviate her symptoms as well. I answered their questions best my ability C can understand and they would like to proceed with surgical intervention as soon as possible. We'll plan to proceed with surgery today.
--- NOTE | 2021-01-02 14:00 | XR ---
EXAMINATION TYPE: XR chest 2V DATE OF EXAM: 01/02/2021 COMPARISON: NONE HISTORY: Shortness of breath TECHNIQUE: Frontal and lateral views of the chest are obtained. FINDINGS: Scattered senescent parenchymal changes noted. Hyperinflation compatible with COPD. No evidence for infiltrate. No evidence for atelectasis. Heart size is stable. Mediastinal structures are stable and grossly unremarkable. No evidence for hilar prominence. Degenerative changes dorsal spine. IMPRESSION: 1. No evidence for acute pulmonary disease.
[2021-01-02] MEDS ORDERED: SUCCINYLCHOLINE CHLORIDE 100 MG/5 ML SYR IV ONE (14:18)
[2021-01-02] MEDS ORDERED: GLYCOPYRROLATE 0.2 MG/ML 2 ML VIAL ONE (14:18)
[2021-01-02] MEDS ORDERED: ONDANSETRON 4 MG/2 ML VIAL ONE (14:18)
[2021-01-02] MEDS ORDERED: ROCURONIUM 10 MG/ML (5 ML VIAL) IV ONE (14:18)
[2021-01-02] MEDS ORDERED: NEOSTIGMINE 1 MG/ML 10 ML VIAL ONE (14:18)
[2021-01-02] MEDS ORDERED: PROPOFOL 10 MG/ML 20 ML VIAL IV ONE (14:18)
[2021-01-02] MEDS ORDERED: ALBUMIN HUMAN 5% (12.5gm) 250 ML BOTTLE IVPB ONE (14:18)
[2021-01-02] MEDS ORDERED: SODIUM CHLORIDE 0.9% 100 ML BAG ONE (14:18)
[2021-01-02] MEDS ORDERED: ceFAZolin 1,000 MG VIAL ONE (14:18)
[2021-01-02] MEDS ORDERED: LACTATED RINGERS 1,000 ML IV ONE ×3 (14:18→17:30)
[2021-01-02] MEDS ORDERED: fentaNYL (PF) 50 MCG/ML 2 ML AMP ONE (14:18)
[2021-01-02] MEDS ORDERED: DEXAMETHASONE SOD PHOSPHATE 10 MG/ML 1 ML VIAL ONE (14:18)
[2021-01-02] MEDS ORDERED: LIDOCAINE 1% INJ 10MG/ML (20 ML MDV) ONE (14:18)
[2021-01-02] MEDS ORDERED: PHENYLEPHRINE-0.9% NACL SYG 1,000 MCG/10 ML SYRINGE ONE (14:18)
[2021-01-02] MEDS ORDERED: SODIUM CHLORIDE 0.9% 50 ML with ceFAZolin 1,000 MG IV ONE ×2 (14:40)
[2021-01-02] MEDS ORDERED: THROMBIN (BOVINE) 5,000 UNIT VIAL TOPICAL ONE (14:58)
[2021-01-02] MEDS ORDERED: LIDOCAINE 2%-EPI 1:100,000 20 ML VIAL SQ ONE (14:59)
[2021-01-02] MEDS ORDERED: GELATIN SPONGE,ABSORB (LARGE) 1 EACH SPONGE TOPICAL ONE (14:59)
[2021-01-02] MEDS ORDERED: traMADol 50 MG TAB PO PRN (19:03)
[2021-01-02] MEDS ORDERED: HYDROcodone/APAP 5-325MG 1 EACH TAB PO PRN (19:03)
[2021-01-02] MEDS ORDERED: ONDANSETRON 4 MG/2 ML VIAL IVP PRN (19:03)
[2021-01-02] MEDS ORDERED: FLUTICASONE 50MCG/SPRAY NASAL 16GM EA NOSTRIL PRN (19:06)
[2021-01-02] MEDS ORDERED: ZOLPIDEM 5 MG TAB PO PRN (19:06)
[2021-01-02] MEDS ORDERED: HYDROmorphone 0.5 MG/0.5 ML SYRINGE IVP ONE ×3 (19:20→19:45)
--- NOTE | 2021-01-02 19:33 | P.OP ---
Date of Procedure: 01/02/21 Preoperative Diagnosis: Cervical myelopathy, displaced internal fixation C3 through C6 status post anterior cervical decompression and fusion C3 4 C4 5 C5 6 C6 7, osteopenia, neck pain, upper extremity radiculopathy, Postoperative Diagnosis: Same Plus findings of vertebral body fracture C3 C4 C5 and C6 with some bony loss Procedure(s) Performed: Revision of anterior cervical fusion C3 through C6 with removal of hardware and removal of interbody body bone graft C3 4 C4 5 C5 6, Anterior cervical fusion C3 through C7 Full corpectomy C4 C5 C6, Anterior cervical discectomy C6 7 Placement of interbody peek cage filled with local autogenous bone graft and allograft bone C3 through C7 Application of anterior cervical plate C3 through C7 Local autogenous bone grafting Under the same anesthesia but through a separate incision we performed: Posterior cervical fusion C3 4 C4 5 C5 6 C6 7 Local autogenous bone grafting Application of Henry wharf tender head for positioning Use of C-arm fluoroscopic guidance Anesthesia: GETA Pathology: none sent Condition: stable Disposition: PACU Description of Procedure: BRIEF OPERATIVE NOTE Preoperative Diagnosis:Cervical myelopathy, displaced internal fixation C3 through C6 status post anterior cervical decompression and fusion C3 4 C4 5 C5 6 C6 7, osteopenia, neck pain, upper extremity radiculopathy Postoperative Diagnosis:Cervical myelopathy, displaced internal fixation C3 through C6 status post anterior cervical decompression and fusion C3 4 C4 5 C5 6 C6 7, osteopenia, neck pain, upper extremity radiculopathy, with findings of vertebral body fractures C3 C4 C5 and C6 with bone loss Procedure: Revision of anterior cervical fusion C3 through C6 with removal of hardware and removal of interbody body bone graft C3 4 C4 5 C5 6, Anterior cervical fusion C3 through C7 Full corpectomy C4 C5 C6, Anterior cervical discectomy C6 7 Placement of interbody peek cage filled with local autogenous bone graft and allograft bone C3 through C7 Application of anterior cervical plate C3 through C7 Local autogenous bone grafting Under the same anesthesia but through a separate incision we performed: Posterior cervical fusion C3 4 C4 5 C5 6 C6 7 Local autogenous bone grafting Application of Henry wharf tender head for positioning Use of C-arm fluoroscopic guidance Surgeon: Dr. [facility] [employer] Officer: Hospital staff first Asst. Anesthesia: General anesthesia Estimated blood loss: Approximately 600 mL total 300 for the anterior 300 posterior Complications: None apparent Components implanted: We removed the prior anterior cervical plate with 7 screws. These were evaluated and found to be in total. We also removed 3 Vikos interbody allograft bone grafts from C 34 C4 5 and C5 6 For the anterior surgery we placed [place] anterior cervical plate system with 3 screws and a week interbody cage filled with local autogenous bone graft and allograft from C3 to C7 For the posterior cervical fusion we placed K2M posterior cervical screws measuring 3.52 at C3 1 at C4 1 at C5 1 at C6 and 2 at C7 with rods and local autogenous bone graft supplement the allograft DBX bone putty Disposition: To recovery room in good stable condition. OPERATIVE INDICATIONS The patient recently underwent anterior cervical decompression with discectomy and fusion for her severe cervical myelopathy with cervical stenosis neck pain and upper extremity weakness. She underwent procedure at C3 4 C4 5 and C5 6 approximately 10 days ago with our service. She initially was doing well and was discharged home with close follow-up and the possibility of supplemental posterior cervical fixation. When she was seen at the office yesterday we found that she had displacement of her hardware from C3 to C6. The patient was not having any neurologic changes. We had discussions with the patient for revision of anterior cervical surgery as well as posterior cervical stabilization. We spoke again with patient today and discussed the possibly of proceeding with surgery as soon as possible. We had the patient reports a hospital where he prepared for revision of her anterior cervical surgery with fusion and revision of her fusion as well as posterior cervical stabilization. The patient has had long-standing issues in their neck and upper extremities. She was not having any focal neurologic losses was having discomfort at her neck and throat. We discussed the fact that we may need to extend the fusion and that the patient's bones are quite soft and it is difficult to predict stability through her cervical spine. We discussed various treatment options including surgery, and the patient wishes to proceed with surgery We discussed the risk, patient's alternatives and benefits of surgery including but not limited to, risk of bleeding risk of infection, risk of need for further surgery, risk of decreased, loss of motion, muscle function, malunion nonunion, hardware failure, nerve damage, paralysis, heart attack, and . OPERATIVE SUMMARY After discussing all the risks, patient alternatives and benefits at length, the patient elected to proceed with surgical intervention, signed informed consent, and presented for their procedure. The patient was seen and examined in the preoperative holding area and the surgical site was marked. The patient was given antibiotics and brought to the operating room. The patient was positioned on the operating room table in a supine position being careful to pad any bony prominences and pressure points. After cervical collar intact until we were ready to prep. The patient was sedated and intubated by anesthesia in standard fashion. Once the airway and C-spine were stabilized the patient's arms were padded and tucked at her side, with her shoulders gently taped. The head was placed in a donut pad with the neck in good neutral alignment and position. We were careful to maintain the patient's cervical spine and good neutral alignment and position throughout. The patient was prepped and draped in a normal standard fashion. An appropriate timeout and keystone protocol performed. We were able to proceed with the surg vanesa. The prior incision was utilized and an was able to dissect down on the right side with a carotid approach. I was able to gain access with the trachea and esophagus medially and the carotid sheath laterally. The plate was easily visible and obviously loose. I removed a number of the screws and then was able to remove the plate in total. All the screws were accounted for. The interbody allograft bone graft at C3 4 and C4 5 were significant loose and removed as well. Note was made of vertebral body loss and fracture at C3 and C4 and at C5. There did not seem to be good bone mass remaining for interbody fixation at individual segments. I examined the bone graft at C5 6 and there was some evidence of fracture and bone loss at C6 as well. The interbody graft was removed and numerous fragments of vertebral body from C6 were loosened and removed as well. The bone loss extended to the inferior endplate of C6 and I did not feel we had good fixation from C6 for interbody fixation. I felt we had to extend the fixation down to C7 in order to gain a solid base for the interbody graft. I felt we would use a long construct with a 3 level corpectomy at C4 5 and 6 with potential fixation at C7 and C3. I completed the corpectomy at C4-C5 and C6 and provided some revision decompression at those interbody levels. The bone was noted to be significant lay soft and frail. I was able to measure for the appropriate size interbody graft. I chose a 48 mm interbody peek cage. C3 was prepared as well. There is some anterior bone loss but it had good vertebral bone at the lateral margins for fixation and posteriorly along the vertebral body. The peek cage was packed with local autogenous bone graft and some bio4 allograft bone. The endplate of C7 had been prepared appropriately. Anesthesia provided some gentle in-line traction and is able place the interbody cage in good alignment good position with adequate fixation from C3 and at C7. The anterior borders were flush with the anterior cervical vertebral bodies. The bone loss at C3 was packed with local autogenous and allograft bone. The graft appeared to have good stability from C3 to C7. I was then able to position for placement of the plate. The plate was placed at the midline from C3 to C7 appropriately. I was able place 2 screws at C7 with adequate bony purchase of the screws in good alignment and good position. Locking device was placed over the screw heads. At C3 I was able place 1 screw to get adequate bony purchase and the locking device was employed over the screw head. The construct was checked and found have adequate stability. Good hemostasis maintained. There is no evidence of any dural tear or leak. It appeared to have adequate fixation. C-arm imaging was done which showed good alignment and positioning from C3 to C7 of the hardware and fixation. The wound was irrigated and suctioned dry and we will proceed with closure. A deep drain was placed. The anterior surgery. The platysma was closed with 3-0 Vicryl subcu tissue was closed with 3-0 Vicryl and subcuticular tissue was closed with 4-0 Vicryl wound was closed with exophytic blue and dressed with nonadherent maggy erproof dressing. The drapes were broken down and the patient was placed back into her hard cervical collar. This concluded the anterior portion of the surgery. We are then able to move forward with the posterior cervical fusion. A separate bed was prepared and under the same anesthesia I placed a Henry wharf tender head appropriately and the patient had with appropriate positioning and fixation and pressure. With the Henry wharf tender head stable we were able to gently roll the patient to be in the neck in good neutral alignment and position into a prone position onto the Carlos Eduardo frame and fix the Henry wharf tender head appropriately with arms tucked at her sides and careful with all bony prominences pressure points. With the patient on the Carlos Eduardo table we again took C-arm images which showed good alignment and position of the hardware without any evidence of displacement. With the patient and position we will proceed with posterior cervical surgery. The posterior cervical area was prepped and draped. An appropriate keystone protocol appropriate timeout was completed and we will proceed. The local area was infiltrated with local anesthetic and incision was made sharply through skin and subcutaneous tissue from C3 to C7. Dissection was taken down through the midline and over the lamina bilaterally. I was able to expose the lateral masses and facet joints from C3 3 to C7. I then prepared for placement of the screws. I established starting holes at C3 4 5 6 and 7 with a high-speed bur. I performed a decortication of the lateral mass and facet joints with a high-speed bur. I placed screws with appropriate alignment and position after drilling appropriately with a hand-held drill and drill guide. The patient had very soft bone. The bone was quite fragile. At C3 I was able to get screws bilaterally with adequate fixation. At C4 the lateral mass on the right side had slight fracture and I was only able to place a lateral mass screw on the left. At C5 the screw had some cutout on the right and I was only able place a lateral mass screw at C5 on the left. At C6 I was able place lateral mass screw on the right. At C7 I used fluoroscopic guidance to assist with placement of pedicle screws bilaterally. The screws were placed and had adequate fixation. I was able to decorticate appropriately and placed rods which were measured contoured and attached with locking Screws. The locking Screws were torqued appropriately. Final images were taken which showed good alignment and position of the hardware from C3 to C7 without evidence of displacement anteriorly. Good hemostasis was maintained. There is no evidence of any dural tear or leak. The wound was irrigated and suctioned dry. I was able place bone graft local autogenous bone graft at the posterior lateral gutters over the decorticated facet joints and lateral masses. . Closure. The fascial layer was closed with #1 Vicryl subcu tissue was closed with 2-0 Vicryl and can was closed with christian. Wounds clean and dried and dressed with nonadherent dressing and waterproof dressing. From the Carlos Eduardo table we gently rolled the patient with a Henry headholder intact keeping her head and neck in good neutral line and position. I removed the Henry wharf tender head appropriately without any evidence of problems at the fixation sites. The patient was woken up by anesthesia, extubated, transferred to the recovery room in good stable condition. The patient will be admitted to the hospital for appropriate postoperative care, medical management and monitoring. We will continue to follow them closely about the postoperative course.
[2021-01-02] MEDS ORDERED: ONDANSETRON 4 MG/2 ML VIAL IVP ONE (19:54)
[2021-01-02] MEDS: GABAPENTIN 300 MG CAP PO SCH (21:49)
[2021-01-02] MEDS: NITROFURANTOIN MONOHYD/M-CRYST 100 MG CAP PO SCH (21:49)
[2021-01-02] MEDS: GLYCOPYRROLATE 1 MG TAB PO SCH (21:49)
[2021-01-02] MEDS: ASCORBIC ACID 500 MG TAB PO SCH (21:49)
--- NOTE | 2021-01-02 22:55 | XR ---
EXAMINATION TYPE: XR cervical spine limited DATE OF EXAM: 01/02/2021 COMPARISON: NONE HISTORY: surgery. TECHNIQUE: 5 fluoroscopic images FINDINGS: There is anterior fusion surgery with plate and screws fusing the cervical spine from C3 to C7. Vertebra show mild straightening. Exam limited by the fluoroscopic. IMPRESSION: Multilevel fusion surgery. No complicating process seen.
[2021-01-03] MEDS: HYDROmorphone 0.5 MG/0.5 ML SYRINGE IVP PRN ×2 (02:26→19:48)
[2021-01-03 04:39] LABS: Basophils % (A) 0 %; Eosinophils % (A) 0 %; HCT 23.7 % (34.0-46.0); Lymphocytes # (A) 1.2 k/uL (1.0-4.8); Lymphocytes % (A) 8 %; MCH 31.7 pg (25.0-35.0); MCHC 34.4 g/dL (31.0-37.0); MCV 92.1 fL (80.0-100.0); Mean Platelet Volume 6.6; Monocytes # (A) 0.7 k/uL (0-1.0); Monocytes % (A) 4 %; Neutrophils # (A) 14.1 k/uL (1.3-7.7); Neutrophils % (A) 88 %; Platelet Count 370 k/uL (150-450); RBC 2.57 m/uL (3.80-5.40); RDW 13.6 % (11.5-15.5); WBC 16.1 k/uL (3.8-10.6)
[2021-01-03 04:40] LABS: HGB 8.1 gm/dL (11.4-16.0)
[2021-01-03 06:28] LABS: Appearance,Urine Clear (Clear); Bilirubin,Urine Negative (Negative); Blood,Urine Negative (Negative); Color,Urine Yellow; Glucose,Urine (UA) Negative (Negative); Ketones,Urine Negative (Negative); Leukocyte Esterase,Urine Negative (Negative); Nitrite,Urine Negative (Negative); Protein,Urine Trace (Negative); Specific Gravity,Urine 1.019 (1.001-1.035); Urobilinogen,Urine <2.0 mg/dL (<2.0)
--- NOTE | 2021-01-03 07:26 | XR ---
Fluoroscopy History: Postop evaluation 3 sec fl-2 images. Interval placement of the pedicular screws
[2021-01-03] MEDS: GLYCOPYRROLATE 1 MG TAB PO SCH ×2 (08:23→21:54)
[2021-01-03] MEDS: ESCITALOPRAM 10 MG TAB PO SCH (08:23)
[2021-01-03 08:24] LABS: African American GFR (CKD) 50 (>60 ml/min/1.73 sqM); Anion Gap 6 mmol/L; Blood Urea Nitrogen 20 mg/dL (7-17); Calcium 8.6 mg/dL (8.4-10.2); Carbon Dioxide 27 mmol/L (22-30); Chloride 105 mmol/L (98-107); Glucose 106 mg/dL (74-99); Magnesium 1.6 mg/dL (1.6-2.3); Non-African American GFR(CKD) 44 (>60 ml/min/1.73 sqM); Potassium 3.8 mmol/L (3.5-5.1); Sodium 138 mmol/L (137-145)
[2021-01-03] MEDS: NITROFURANTOIN MONOHYD/M-CRYST 100 MG CAP PO SCH ×2 (08:24→21:54)
[2021-01-03] MEDS: ASCORBIC ACID 500 MG TAB PO SCH ×2 (08:24→21:54)
[2021-01-03] MEDS: PANTOPRAZOLE SODIUM 40 MG GRANULE PKT PO SCH (08:24)
[2021-01-03] MEDS: ASPIRIN 81 MG PO SCH (08:24)
[2021-01-03] MEDS: MULTIVITAMINS, THERA 1 EACH TAB PO SCH (08:24)
[2021-01-03] MEDS: CHOLECALCIFEROL 25 MCG (1000 IU) TABLET PO SCH (08:24)
[2021-01-03] MEDS: GABAPENTIN 300 MG CAP PO SCH ×3 (08:24→21:54)
[2021-01-03] MEDS: HYDROcodone/APAP 10-325MG 1 EACH TAB PO PRN ×2 (08:25→16:50)
[2021-01-03] MEDS: SENNOSIDES-DOCUSATE SODIUM 1 EACH TAB PO SCH (08:25)
[2021-01-03] MEDS: ATORVASTATIN 20 MG TAB PO SCH (08:25)
--- NOTE | 2021-01-03 10:54 | P.PN ---
Subjective Progress Note Date: 01/03/21 This is an 80 year-old female who is status post revision of anterior cervical fusion C3-C6 and posterior cervical fusion C3 4 C4 5 C5 6 C6 7 for cervical myelopathy and displaced internal fixation C3 through C6 on 01/02/[address] Christianson. Patient is seen and evaluated at bedside today. Patient states that her pain is well controlled today and she denies any new complaints. Objective - Vital Signs Vital signs: Vital Signs Temp 99.1 F 01/03/21 08:56 Pulse 102 H 01/03/21 08:56 Resp 16 01/03/21 08:56 BP 114/65 01/03/21 08:56 Pulse Ox 97 01/03/21 08:56 Intake & Output 01/02/21 01/03/21 01/03/21 18:59 06:59 18:59 Intake Total 2350 400 Output Total 1200 565 Balance 1150 -165 Weight 55.338 kg 55.338 kg Intake: IV 2350 400 Output: Drainage 15 Right Neck 15 Urine 600 550 Estimated Blood Loss 600 Other: Voiding Method Indwelling Catheter Indwelling Catheter - Exam On exam patient is resting comfortably in bed in no acute distress. Patient is alert and oriented 3. Cervical collar is in place. Dressing is clean, dry and intact. Patient is able to freely move bilateral upper extremities without pain or difficulty. Neurovascular status and circulatory status are intact. - Labs CBC & Chem 7: 01/03/21 04:02 01/03/21 07:43 Labs: Abnormal Lab Results - Last 24 Hours (Table) 01/02/21 01/02/21 01/03/21 Range/Units 11:49 11:49 04:02 WBC 10.8 H 16.1 H (3.8-10.6) k/uL RBC 2.57 L (3.80-5.40) m/uL Hgb 8.1 L D (11.4-16.0) gm/dL Hct 23.7 L (34.0-46.0) % Plt Count 520 H (150-450) k/uL Neutrophils # 14.1 H (1.3-7.7) k/uL Potassium 3.4 L (3.5-5.1) mmol/L Carbon Dioxide 33 H (22-30) mmol/L BUN 24 H (7-17) mg/dL Creatinine 1.45 H (0.52-1.04) mg/dL Glucose (74-99) mg/dL Total Protein 6.2 L (6.3-8.2) g/dL Urine Protein (Negative) 01/03/21 01/03/21 Range/Units 06:20 07:43 WBC (3.8-10.6) k/uL RBC (3.80-5.40) m/uL Hgb (11.4-16.0) gm/dL Hct (34.0-46.0) % Plt Count (150-450) k/uL Neutrophils # (1.3-7.7) k/uL Potassium (3.5-5.1) mmol/L Carbon Dioxide (22-30) mmol/L BUN 20 H (7-17) mg/dL Creatinine 1.17 H (0.52-1.04) mg/dL Glucose 106 H (74-99) mg/dL Total Protein (6.3-8.2) g/dL Urine Protein Trace H (Negative) Assessment and Plan Assessment: Status post: Revision of anterior cervical fusion C3 through C6 with removal of hardware and removal of interbody body bone graft C3 4 C4 5 C5 6, Anterior cervical fusion C3 through C7 Full corpectomy C4 C5 C6, Anterior cervical discectomy C6 7 Placement of interbody peek cage filled with local autogenous bone graft and allograft bone C3 through C7 Application of anterior cervical plate C3 through C7 Local autogenous bone grafting Under the same anesthesia but through a separate incision we performed: Posterior cervical fusion C3 4 C4 5 C5 6 C6 7 Local autogenous bone grafting Application of [place] [employer] head for positioning Use of C-arm fluoroscopic guidance (1) Postoperative complication Current Visit: Yes Status: Acute Code(s): T81.9XXA - UNSPECIFIED COMPLICATION OF PROCEDURE, INITIAL ENCOUNTER SNOMED Code(s): 252415935 Plan: 1. Continue with routine postoperative care and pain control. 2. Continue with hard collar at all times. 3. Appreciate input from medicine. 4. Anticipate discharge in the next 24-48 hours.
--- NOTE | 2021-01-03 12:20 | P.CONS ---
History of Present Illness - Reason for Consult Consult date: 01/03/21 Medical management - Chief Complaint Neck pain - History of Present Illness This is a 80-year-old female with past medical history noted below who was admitted to the hospital for revision of anterior cervical fusion C3-C6 and posterior cervical fusion C3-C7 patient is postoperative day #1. She is awake and alert. She is complaining of discomfort in her neck secondary to the cervical collar making her uncomfortable and unable to rest her head on the pillow. She denies any concerns otherwise. She received her pain medication prior to my assessment and her pain is not well controlled. I was asked to see her for medical management. Review of Systems Review of system: 14 points review of systems were obtained and were negative except to what were mentioned in the HPI. Past Medical History Past Medical History: Hyperlipidemia, Osteoarthritis (OA) Additional Past Medical History / Comment(s): HX SPINAL STENOSIS/OSTEOARTHRITIS. Cervical myelopathy with upper extremity weakness status post anterior cervical decompression and fusion on 12/23/2020. Recurrent urinary tract infections History of Any Multi-Drug Resistant Organisms: None Reported Past Surgical History: Back Surgery Additional Past Surgical History / Comment(s): HX HAND NEUROMA LEFT FOOT/ BILAT CATARACTS REMOVED AND GLAUCOMA, neck surgery Past Anesthesia/Blood Transfusion Reactions: No Reported Reaction Past Psychological History: Anxiety Smoking Status: Current every day smoker Past Alcohol Use History: None Reported Past Drug Use History: None Reported - Past Family History Mother Family Medical History: Dementia Additional Family Medical History / Comment(s): AGE 97 OF NATURAL CAUSES Brother(s) Family Medical History: Cancer Additional Family Medical History / Comment(s): HX ASBESTOS Sister(s) Family Medical History: CVA/TIA Daughter(s) Additional Family Medical History / Comment(s): ANXIETY/SCOLIOSIS Son(s) Additional Family Medical History / Comment(s): HX HEMOCHROMATOSIS Medications and Allergies Home Medications Medication Instructions Recorded Confirmed Type Aspirin [Adult Low Dose Aspirin EC] 81 mg PO DAILY 08/22/16 01/02/21 History Multivitamins, Thera [Multivitamin] 1 tab PO DAILY 08/22/16 01/02/21 History Ascorbic Acid [Vitamin C] 500 mg PO BID 12/22/20 01/02/21 History Atorvastatin [Lipitor] 20 mg PO DAILY 12/22/20 01/02/21 History Cholecalciferol [Vitamin D3 (25 25 mcg PO DAILY 12/22/20 01/02/21 History Mcg = 1000 Iu)] Escitalopram [Lexapro] 10 mg PO DAILY 12/22/20 01/02/21 History Fluticasone Nasal [place] [Flonase 1 spray EA NOSTRIL DAILY PRN 12/22/20 01/02/21 History Nasal [place]] Glycopyrrolate [Robinul] 1 mg PO BID 12/22/20 01/02/21 History Nitrofurantoin Macrocrystal 100 mg PO BID 12/22/20 01/02/21 History [Nitrofurantoin] HYDROcodone/APAP 10-325MG [[place] 1 tab PO Q8HR PRN #21 tab 12/24/20 01/02/21 Rx 10-325] Benzocaine/Menthol Lozeng [Cepacol 1 lozenge MUCOUS MEM Q6HR PRN 01/02/21 01/02/21 History lozenge] Gabapentin [Neurontin] 300 mg PO TID 01/02/21 01/02/21 History Pantoprazole Sodium [Protonix] 20 mg PO DAILY 01/02/21 01/02/21 History Zolpidem [Ambien] 5 mg PO HS PRN 01/02/21 01/02/21 History Allergies Allergy/AdvReac Type Severity Reaction Status Date / Time baclofen Allergy Unknown Verified 01/02/21 14:10 latex Allergy Swelling Verified 01/02/21 14:10 Penicillins Allergy Nausea & Verified 01/02/21 14:10 Vomiting quinine Allergy Rapid Verified 01/02/21 14:10 Heart Rate Physical Exam Vitals: Vital Signs Temp Pulse Pulse Pulse Resp BP BP 01/03/21 08:56 99.1 F 102 H 16 114/65 01/03/21 03:45 98.7 F 106 H 18 112/61 01/03/21 02:48 99.1 F 96 19 117/68 01/02/21 22:50 90 136/73 01/02/21 22:20 94 145/47 01/02/21 21:50 79 171/80 01/02/21 21:35 79 159/66 01/02/21 21:21 87 150/74 01/02/21 21:06 79 178/79 01/02/21 20:58 01/02/21 20:50 98.1 F 74 18 186/78 01/02/21 20:20 64 18 158/90 01/02/21 20:05 64 17 150/78 01/02/21 19:50 67 18 158/61 01/02/21 19:35 88 18 172/85 01/02/21 19:20 92 16 176/100 01/02/21 19:06 96.9 F L 101 H 18 147/94 01/02/21 13:59 97.1 F L 86 16 179/88 01/02/21 12:25 90 18 166/81 Pulse Ox 01/03/21 08:56 97 01/03/21 03:45 97 01/03/21 02:48 97 01/02/21 22:50 01/02/21 22:20 98 01/02/21 21:50 99 01/02/21 21:35 99 01/02/21 21:21 98 01/02/21 21:06 96 01/02/21 20:58 98 01/02/21 20:50 98 01/02/21 20:20 99 01/02/21 20:05 99 01/02/21 19:50 100 01/02/21 19:35 100 01/02/21 19:20 01/02/21 19:06 99 01/02/21 13:59 95 01/02/21 12:25 93 L Intake and Output 01/02/21 01/03/21 01/03/21 22:59 06:59 14:59 Intake Total 1700 Output Total 1400 365 Balance 300 -365 Intake: IV 1700 Output: Drainage 15 Right Neck 15 Urine 800 350 Estimated Blood Loss 600 Other: Voiding Method Indwelling Catheter Indwelling Catheter Weight 55.338 kg General: The patient is awake and alert, in no distress Eye: there is normal conjunctiva bilaterally. Neck: Cervical collar in place Cardiovascular: Normal S1-S2, no S3-S4, no murmurs. Respiratory: Lungs clear to auscultation bilaterally Gastrointestinal: Abdomen is soft, nontender Musculoskeletal: There is no pedal edema. Neurological:. Speech is normal. Skin: Skin is warm and dry Results CBC & Chem 7: 01/03/21 04:02 01/03/21 07:43 Labs: Abnormal Lab Results - Last 24 Hours (Table) 01/03/21 01/03/21 01/03/21 Range/Units 04:02 06:20 07:43 WBC 16.1 H (3.8-10.6) k/uL RBC 2.57 L (3.80-5.40) m/uL Hgb 8.1 L D (11.4-16.0) gm/dL Hct 23.7 L (34.0-46.0) % Neutrophils # 14.1 H (1.3-7.7) k/uL BUN 20 H (7-17) mg/dL Creatinine 1.17 H (0.52-1.04) mg/dL Glucose 106 H (74-99) mg/dL Urine Protein Trace H (Negative) Assessment and Plan Assessment: 1. Postoperative day #1 status post revision of anterior cervical fusion C3 through C6 with removal of hardware and bone graft,/anterior cervical fusion C3 through C7: Postoperative care per spine surgery. Pain control and DVT proph ylaxis per primary team. 2. Acute kidney injury, improved with IV fluid hydration. I would repeat lab work in the morning. 3. Hypokalemia, now resolved 4. Leukocytosis, most likely reactive to surgery. No evidence of infection 5. Chronic medical problems: Chronic neck pain, underlying depression, GERD, hyperlipidemia, chronic insomnia Today, I reviewed her medication list and lab work results. I would start gentle IV fluid hydration with normal saline at 50 mL per hour. Continue cur rent regimen otherwise. Thank you very much for the consultation. I will continue to follow up on the patient closely with you.
[2021-01-03] MEDS: SODIUM CHLORIDE 0.9% 1,000 ML IV SCH (13:11)
[2021-01-03] MEDS: BENZOCAINE/MENTHOL LOZENG 1 EACH LOZENGE MUCOUS MEM PRN (17:24)
[2021-01-03] MEDS: CYCLOBENZAPRINE 5 MG TAB PO PRN (19:48)
[2021-01-04] MEDS: HYDROcodone/APAP 10-325MG 1 EACH TAB PO PRN ×4 (01:28→21:55)
[2021-01-04 08:44] LABS: HCT 23.8 % (37.2-46.3); HGB 7.2 g/dL (12.0-15.0); MCH 30.3 pg (27.0-32.0); MCHC 30.3 g/dL (32.0-37.0); Mean Platelet Volume 9.2 fL (9.5-12.2); Platelet Count 346 X 10*3/uL (140-440); RBC 2.38 X 10*6/uL (4.10-5.20); RDW 14.2 % (11.5-14.5); WBC 16.82 X 10*3/uL (4.50-10.00)
[2021-01-04] MEDS: BENZOCAINE/MENTHOL LOZENG 1 EACH LOZENGE MUCOUS MEM PRN (08:48)
[2021-01-04] MEDS: NITROFURANTOIN MONOHYD/M-CRYST 100 MG CAP PO SCH ×2 (08:48→21:56)
[2021-01-04] MEDS: SENNOSIDES-DOCUSATE SODIUM 1 EACH TAB PO SCH (08:49)
[2021-01-04] MEDS: CYCLOBENZAPRINE 5 MG TAB PO PRN (08:49)
[2021-01-04] MEDS: ATORVASTATIN 20 MG TAB PO SCH (08:49)
[2021-01-04] MEDS: GLYCOPYRROLATE 1 MG TAB PO SCH ×2 (08:49→21:56)
[2021-01-04] MEDS: CHOLECALCIFEROL 25 MCG (1000 IU) TABLET PO SCH (08:49)
[2021-01-04] MEDS: MULTIVITAMINS, THERA 1 EACH TAB PO SCH (08:49)
[2021-01-04] MEDS: ASPIRIN 81 MG PO SCH (08:49)
[2021-01-04] MEDS: ASCORBIC ACID 500 MG TAB PO SCH ×2 (08:49→21:56)
[2021-01-04] MEDS: ESCITALOPRAM 10 MG TAB PO SCH (08:49)
[2021-01-04] MEDS: GABAPENTIN 300 MG CAP PO SCH ×3 (08:49→21:55)
[2021-01-04] MEDS: PANTOPRAZOLE SODIUM 40 MG GRANULE PKT PO SCH (08:50)
[2021-01-04] MEDS: SODIUM CHLORIDE 0.9% 1,000 ML IV SCH (08:53)
[2021-01-04 09:16] LABS: African American GFR (CKD) 60.8 (60.0-200.0); Anion Gap 2.5 mmol/L (4.00-12.00); Calcium 8.4 mg/dL (8.7-10.3); Carbon Dioxide 30.5 mmol/L (21.6-31.8); Non-African American GFR(CKD) 52.4 (60.0-200.0); Potassium 4.1 mmol/L (3.5-5.5)
[2021-01-04 10:43] LABS: Basophils # (A) 0.04 X 10*3/uL (0.00-0.10); Basophils % (A) 0.2 %; Eosinophils # (A) 0.21 X 10*3/uL (0.04-0.35); Eosinophils % (A) 1.2 %; Lymphocytes # (A) 3.49 X 10*3/uL (0.90-5.00); Lymphocytes % (A) 20.7 %; Monocytes # (A) 1.57 X 10*3/uL (0.20-1.00); Monocytes % (A) 9.3 %; Neutrophils # (A) 11.42 X 10*3/uL (1.80-7.70); Neutrophils % (A) 68.1 %
--- NOTE | 2021-01-04 12:15 | P.PN ---
Progress Note - Text Progress Note Date: 01/04/21 Orthopedic Spine: History of present illness: Patient is a pleasant 80-year-old female who is seen at the bedside following revision anterior cervical decompression and fusion with corpectomy and posterior cervical fusion performed on 01/02/2021. Patient states they are doing ok postsurgically. Currently does not complain of nausea, vomiting, fever, or chills. Patient states she has had some difficulty with pain control. She has some posterior cervical pain with pain radiating over the trapezius bilaterally for his shoulders. Patient is eating and voiding freely without difficulty. She states her throat is a little bit sore but has been able to eat all of her food. She currently has a hard cervical collar intact. A prescription has been written and provided to case management for a [employer] brace. Hopefully this brace is delivered and fitted today. Patient is currently being seen and examined by medicine. Patient does have some leukocytosis postoperatively which is most likely reactive following surgical intervention. She does have anemia with hemoglobin of 7.2. Medicine once the continue to monitor this with repeat labs in the morning to determine whether the patient needs transfused units or not. Physical Exam Cervical Fusion: Status post surgical day number 2 Patient is awake, alert, and oriented 3 Vital signs stable Good chest excursion with deep inspiration and expiration Hard cervical collar intact; brace is removed and reapplied during physical examination Dressing over the posterior cervical spine was previously removed and changed; dressing is currently clean, dry, and intact Dressing over the anterior cervical spine is clean, dry, intact with drain intact; drain is removed during physical examination with less than 3 mL of blood Nonstick Telfa and Tegaderm reapplied following removal of anterior drain [employer] strength, thumb strength, interosseous strength, biceps strength, triceps strength, and shoulder strength positive sustained bilaterally Assessment: Revision anterior cervical decompression and fusion C3-6 with removal of hardware and removal of interbody bone graft at C3-4, C4-5, and C5-6 Anterior cervical fusion C3-7 Full corpectomy at C4, C5,and C6 C6-7 anterior cervical discectomy Placement of PEEK interbody cage C3-7 Anterior cervical plating C3-7 Posterior cervical fusion C3-4, C4-5, C5-6, and C6-7 Posterior cervical pain Cervical myelopathy Cervical myelomalacia Cervical spondylolisthesis Upper extremity radiculopathy Cervical kyphosis Osteopenia History of anterior cervical decompression and fusion C3-4, C4-5, and C5-6 performed on 12/23/2020 with hardware displacement requiring further surgical intervention Leukocytosis Anemia Hypertension Plan: 1. Ambulate as tolerated; work with Physical Therapy to increase mobilization 2. Continue pain control with oral and IV medications as needed; wean off IV medications in anticipation for discharge; we'll plan to increase [place] 10 mg/25 mg to 1 tab every 6 hours as needed for pain; may continue with cyclobenzaprine as prescribed as needed 3. Patient may shower with Optifoam and Tegaderm dressings intact over the anterior cervical spine; hard cervical collar and dressing of the posterior cervical spine must remain intact; patient may shower with dressing and hard collar intact 4. A prescription has been written and provided to case management to obtain a [employer] brace; this brace must be delivered and fitted appropriately prior to the patient's discharge home; It was discussed with the patient that this brace must be worn 24 hours per day even while bathing and sleeping 4. Medical management can continue to manage patient for patient's other medical diagnosis including anemia and leukocytosis 5. We will continue to follow the patient closely; if the [employer] brace is delivered and fitted appropriately, and patient is able to have improvement in regards to both her anemia and leukocytosis and is cleared for discharge by medicine, we will plan for discharge home as early as tomorrow, 01/05/2021 6. Patient will plan to follow-up with Orestes Hou PA-C at [facility] coming 01/09/2021
--- NOTE | 2021-01-04 13:36 | P.PN ---
Subjective Progress Note Date: 01/04/21 Patient was seen and evaluated by me this morning. She was sitting up in the chair. She reports feeling exhausted. She denies any chest pain or shortness of breath. No dizziness when she got up. Her neck pain is better controlled today. Hemoglobin was noted to be trending down since admission and this morning it was 7.2. Nursing staff informed me that patient was having significant blood oozing from her surgical incision overnight requiring dressings changed multiple times. Objective - Vital Signs Vital signs: Vital Signs Temp 98.7 F 01/04/21 07:43 Pulse 107 H 01/04/21 07:43 Resp 20 01/04/21 07:43 BP 176/77 01/04/21 07:43 Pulse Ox 96 01/04/21 07:43 Intake & Output 01/03/21 01/04/21 01/04/21 18:59 06:59 18:59 Intake Total 1250 600 Output Total 50 60 Balance -50 1190 600 Intake: Intake, IV Titration 700 Amount Sodium Chloride 0.9% 1, 600 000 ml @ 50 mls/hr IV . Q20H [facility] Rx#:[id number] ceFAZolin 2 gm In Sodium 100 Chloride 0.9% 50 ml @ 100 mls/hr IVPB Q8HR [facility] Rx# :[id number] Oral 550 600 Output: Gastric Drainage 50 Drainage 60 Right Neck 60 Other: Voiding Method Indwelling Catheter Indwelling Catheter # Voids 1 5 - Exam General: The patient is awake and alert, in no distress Eye: there is normal conjunctiva bilaterally. Neck: Cervical collar in place Cardiovascular: Normal S1-S2, no S3-S4, no murmurs. Respiratory: Lungs clear to auscultation bilaterally Gastrointestinal: Abdomen is soft, nontender Musculoskeletal: There is no pedal edema. Neurological:. Speech is normal. Skin: Skin is warm and dry - Labs CBC & Chem 7: 01/04/21 05:19 01/04/21 05:19 Labs: Abnormal Lab Results - Last 24 Hours (Table) 01/04/21 01/04/21 Range/Units 05:19 05:19 WBC 16.82 H (4.50-10.00) X 10*3/uL RBC 2.38 L (4.10-5.20) X 10*6/uL Hgb 7.2 L (12.0-15.0) g/dL Hct 23.8 L (37.2-46.3) % MCV 100.0 H (80.0-97.0) fL MCHC 30.3 L (32.0-37.0) g/dL MPV 9.2 L (9.5-12.2) fL Immature Gran # 0.09 H (0.00-0.04) X 10*3/uL Neutrophils # 11.42 H (1.80-7.70) X 10*3/uL Monocytes # 1.57 H (0.20-1.00) X 10*3/uL Anion Gap 2.50 L (4.00-12.00) mmol/L Est GFR (CKD-EPI)NonAf 52.4 L (60.0-200.0) Calcium 8.4 L (8.7-10.3) mg/dL Assessment and Plan Assessment: 1. Postoperative day #2 status post revision of anterior cervical fusion C3 through C6 with removal of hardware and bone graft,/anterior cervical fusion C3 through C7: Postoperative care per spine surgery. Pain control and DVT prophylaxis per primary team. 2. Acute blood loss anemia: Postoperative. Hemoglobin dropped from 11.8 on admission to 7.2 today. Patient reports feeling exhausted. Given her symptomatic anemia I would go ahead and transfuse 1 unit of blood today. Repeat CBC in the morning. 3. Acute kidney injury, improved with IV fluid hydration. 4. Hypokalemia, replaced 5. Leukocytosis, most likely reactive to surgery. No evidence of infection 6. Chronic medical problems: Chronic neck pain, underlying depression, GERD, hyperlipidemia, chronic insomnia Today, I reviewed her medication list and lab work results. Discontinue IV fluid. Continue current regimen otherwise. Thank you very much for the consultation. I will continue to follow up on the patient closely with you.
[2021-01-05] MEDS ORDERED: hydrALAZINE HCL 25 MG TAB PO STA (02:23)
[2021-01-05] MEDS ORDERED: hydrALAZINE HCL 10 MG TAB PO STA (02:25)
[2021-01-05] MEDS: HYDROcodone/APAP 10-325MG 1 EACH TAB PO PRN ×2 (06:07→11:56)
[2021-01-05] MEDS: ASCORBIC ACID 500 MG TAB PO SCH (07:29)
[2021-01-05] MEDS: MULTIVITAMINS, THERA 1 EACH TAB PO SCH (07:29)
[2021-01-05] MEDS: CYCLOBENZAPRINE 5 MG TAB PO PRN (07:29)
[2021-01-05] MEDS: CHOLECALCIFEROL 25 MCG (1000 IU) TABLET PO SCH (07:29)
[2021-01-05] MEDS: SENNOSIDES-DOCUSATE SODIUM 1 EACH TAB PO SCH (07:29)
[2021-01-05] MEDS: ATORVASTATIN 20 MG TAB PO SCH (07:29)
[2021-01-05] MEDS: ASPIRIN 81 MG PO SCH (07:30)
[2021-01-05] MEDS: PANTOPRAZOLE SODIUM 40 MG GRANULE PKT PO SCH (07:30)
[2021-01-05] MEDS: ESCITALOPRAM 10 MG TAB PO SCH (07:30)
[2021-01-05] MEDS: NITROFURANTOIN MONOHYD/M-CRYST 100 MG CAP PO SCH (07:30)
[2021-01-05] MEDS: GLYCOPYRROLATE 1 MG TAB PO SCH (07:30)
[2021-01-05] MEDS: GABAPENTIN 300 MG CAP PO SCH ×2 (07:31→16:24)
[2021-01-05] MEDS ORDERED: hydrALAZINE HCL 20 MG/ML 1 ML VIAL IVP PRN (07:51)
[2021-01-05 09:42] LABS: Basophils # (A) 0.06 X 10*3/uL (0.00-0.10); Basophils % (A) 0.3 %; Eosinophils # (A) 0.38 X 10*3/uL (0.04-0.35); Eosinophils % (A) 2.1 %; HCT 30.5 % (37.2-46.3); HGB 9.4 g/dL (12.0-15.0); Lymphocytes # (A) 2.05 X 10*3/uL (0.90-5.00); Lymphocytes % (A) 11.6 %; MCH 29.4 pg (27.0-32.0); MCHC 30.8 g/dL (32.0-37.0); MCV 95.3 fL (80.0-97.0); Mean Platelet Volume 9.4 fL (9.5-12.2); Monocytes # (A) 1.05 X 10*3/uL (0.20-1.00); Monocytes % (A) 5.9 %; Neutrophils % (A) 79.7 %; Platelet Count 360 X 10*3/uL (140-440); RDW 14.5 % (11.5-14.5); WBC 17.71 X 10*3/uL (4.50-10.00)
[2021-01-05 09:56] LABS: African American GFR (CKD) 79.6 (60.0-200.0); Anion Gap 6.7 mmol/L (4.00-12.00); BUN/Creat Ratio 17.5 Ratio (12.00-20.00); Calcium 9.1 mg/dL (8.7-10.3); Carbon Dioxide 28.3 mmol/L (21.6-31.8); Non-African American GFR(CKD) 68.7 (60.0-200.0)
--- NOTE | 2021-01-05 13:00 | P.DS ---
Providers Date of admission: 01/02/21 13:26 Expected date of discharge: 01/05/21 Attending physician: Ambrose Christianson Consults: 01/02/21 13:51 Consult Physician Routine Consulting Provider: Hali Cowan Consult Reason/Comments: Medical management Do you want consulting provider notified?: Yes Primary care physician: Ama Frederick - Discharge Diagnosis(es) (1) Cervical cord myelomalacia Current Visit: Yes Status: Acute (2) Status post cervical spinal fusion Current Visit: Yes Status: Acute (3) H/O cervical spinal arthrodesis Current Visit: Yes Status: Acute (4) Spondylolisthesis, cervical region Current Visit: Yes Status: Acute (5) Cervical kyphosis Current Visit: Yes Status: Acute (6) Cervicalgia Current Visit: Yes Status: Acute (7) Leukocytosis Current Visit: Yes Status: Acute (8) Anemia Current Visit: Yes Status: Acute (9) Hypertension Current Visit: Yes Status: Acute (10) Cervical myelopathy Current Visit: Yes Status: Acute (11) Displacement of internal fixation device of vertebrae Current Visit: Yes Status: Acute (12) Postoperative complication Current Visit: Yes Status: Acute Hospital Course: This is a pleasant 80-year-old female with history of anterior cervical decompression and fusion C3-4, C4-5, and C5-6 performed on 12/23/2020 with hardware displacement requiring further surgical intervention. She underwent revision anterior cervical decompression and fusion C3-6 with removal of hardware and removal of interbody bone graft at C3-4, C4-5, and C5-6, anterior cervical fusion C3-7, full corpectomy at C4, C5,and C6, C6-7 anterior cervical discectomy, and posterior cervical fusion C3-4, C4-5, C5-6, and C6-7. She is known to have cervical myelopathy, cervical myelomalacia, cervical spon dylolisthesis, cervical kyphosis, osteopenia, cervicalgia, and upper extremity radiculopathy. She has been recovering well postoperatively. She has been fitted with a PARK WORKER brace. This brace was delivered and fitted appropriately. She has kept this brace intact at all times. Brace was removed this morning during dressing change and reapplied. Patient states brace is currently sitting comfortably. Her pain has been better controlled with oral [place] 10 mg/325 mg 1 tablet every 6 hours as needed for pain. She was able to have a large bowel movement yesterday. She is urinating without difficulty. She continues to have some ongoing cervical pain with pain over the trapezius bilaterally states her pain has been fairly well controlled with combinations of [place] 10 mg/325 mg and cyclobenzaprine. She was having significant anemia postoperatively with a hemoglobin of 7.2 yesterday. She did receive a unit yesterday and her hemoglobin is up to 9.4. She was also experiencing hypertension yesterday but has had significant improvement today after receiving hydralazine per medicine. Her last blood pressure reading was 116/57. She does continue to have some postoperative leukocytosis. Patient feels she is recovering well and is ready for discharge home today. She has continued to be seen and examined by medicine who has not seen the patient yesterday. We discussed she would need clearance from a medical standpoint prior to discharge home. We will follow her closely in outpatient setting with plans to have her follow up in the office this coming 01/08/2021. The patient tolerated the procedure well and did well postoperatively. Condition on day of discharge stable. Patient will be discharged home. We have discussed in significant detail that her PARK WORKER brace must remain intact 24 hours per day. Patient must leave brace intact even while bathing and sleeping. Patient may shower with waterproof dressings intact over the anterior and posterior cervical spine. Patient may remove tegaderm dressing in 4 days and shower without a dressing at that time. Patient should refrain from driving. Patient currently denies any nausea, vomiting, or fever. She states she does have a history of chills which have been ongoing over the past 9 years. She has had significant workup without any findings to the cause of her chills. They're intermittent. Patient is eating and voiding freely without difficulty. Patient should avoid excessive neck flexion, extension, rotation, and lateral sidebending; no overhead lifting; no lifting greater than 10 pounds. [facility] has been reviewed today, 01/05/2021, with no patient record. An "Opiod Start Talking" Form has been signed and placed in the patient's chart. A prescription has been written for [place] 10 mg/325 mg 1 tablet every 6 hours as needed for pain, dispensed #28. Patient also given prescriptions for cyclobenzaprine 10 mg 1 tab every 8 hours as needed for muscle spasm, dispensed #60. Patient may resume her other previously prescribed home medications while avoiding anti-inflammatory medications over the next 6 weeks postoperatively. Patient's other medical diagnoses include postoperative leukocytosis, anemia, and hypertension. Physical Exam on day of discharge: Status post surgical day number 3 Patient is awake, alert, and oriented 3 Vital signs stable Good chest excursion with deep inspiration and expiration Cervicothoracic hard collar intact; brace is removed and reapplied during physical examination Dressings over the anterior and posterior cervical spine are removed and new dressing is reapplied with nonstick Telfa and Tegaderm No active drainage from the anterior and posterior cervical spine surgical sites Stable to remain intact with a posterior cervical spine Some mild swelling in the posterior cervical spine No significant bruising over the anterior posterior cervical spine No significant pain with palpation over the anterior cervical spine Some generalized pain with palpation over the posterior cervical spine and trapezius Quantitative Researcher strength, thumb strength, interosseous strength, biceps strength, triceps strength, and shoulder strength positive sustained bilaterally Procedures: Revision anterior cervical decompression and fusion C3-6 with removal of hardware and removal of interbody bone graft at C3-4, C4-5, and C5-6, anterior cervical fusion C3-7, full corpectomy at C4, C5,and C6, C6-7 anterior cervical discectomy, and posterior cervical fusion C3-4, C4-5, C5-6, and C6-7 Patient Condition at Discharge: Stable Plan - Discharge Summary Discharge Rx Participant: No New Discharge Prescriptions: New Cyclobenzaprine [Flexeril] 10 mg PO TID PRN #60 tab PRN Reason: Muscle Spasm HYDROcodone/APAP 10-325MG [[place] 10] 1 each PO Q6H PRN #28 tab PRN Reason: Pain No Action Multivitamins, Thera [Multivitamin] 1 tab PO DAILY Aspirin [Adult Low Dose Aspirin EC] 81 mg PO DAILY Nitrofurantoin Macrocrystal [Nitrofurantoin] 100 mg PO BID Glycopyrrolate [Robinul] 1 mg PO BID Fluticasone Nasal [place] [Flonase Nasal [place]] 1 spray EA NOSTRIL DAILY PRN PRN Reason: Allergy Symptoms Escitalopram [Lexapro] 10 mg PO DAILY Cholecalciferol [Vitamin D3 (25 Mcg = 1000 Iu)] 25 mcg PO DAILY Atorvastatin [Lipitor] 20 mg PO DAILY Ascorbic Acid [Vitamin C] 500 mg PO BID HYDROcodone/APAP 10-325MG [[place] 10-325] 1 tab PO Q8HR PRN #21 tab PRN Reason: Pain Pantoprazole Sodium [Protonix] 20 mg PO DAILY Zolpidem [Ambien] 5 mg PO HS PRN PRN Reason: Insomnia Gabapentin [Neurontin] 300 mg PO TID Benzocaine/Menthol Lozeng [Cepacol lozenge] 1 lozenge MUCOUS MEM Q6HR PRN PRN Reason: Sore Throat Discharge Medication List Aspirin [Adult Low Dose Aspirin EC] 81 mg PO DAILY 08/22/16 [History] Multivitamins, Thera [Multivitamin] 1 tab PO DAILY 08/22/16 [History] Ascorbic Acid [Vitamin C] 500 mg PO BID 12/22/20 [History] Atorvastatin [Lipitor] 20 mg PO DAILY 12/22/20 [History] Cholecalciferol [Vitamin D3 (25 Mcg = 1000 Iu)] 25 mcg PO DAILY 12/22/20 [History] Escitalopram [Lexapro] 10 mg PO DAILY 12/22/20 [History] Fluticasone Nasal [place] [Flonase Nasal [place]] 1 spray EA NOSTRIL DAILY PRN 12/22/20 [History] Glycopyrrolate [Robinul] 1 mg PO BID 12/22/20 [History] Nitrofurantoin Macrocrystal [Nitrofurantoin] 100 mg PO BID 12/22/20 [History] HYDROcodone/APAP 10-325MG [[place] 10-325] 1 tab PO Q8HR PRN #21 tab 12/24/20 [Rx] Benzocaine/Menthol Lozeng [Cepacol lozenge] 1 lozenge MUCOUS MEM Q6HR PRN 01/02/21 [History] Gabapentin [Neurontin] 300 mg PO TID 01/02/21 [History] Pantoprazole Sodium [Protonix] 20 mg PO DAILY 01/02/21 [History] Zolpidem [Ambien] 5 mg PO HS PRN 01/02/21 [History] Cyclobenzaprine [Flexeril] 10 mg PO TID PRN #60 tab 01/05/21 [Rx] HYDROcodone/APAP 10-325MG [[place] 10] 1 each PO Q6H PRN #28 tab 01/05/21 [Rx] Follow up Appointment(s)/Referral(s): Orestes Hou PAC [[facility] [employer]] - 01/08/21 Ama Frederick MD [Primary Care Provider] - 01/11/21 10:00 am Gian Knapp [NON-STAFF] - As Needed (PARK WORKER brace) Patient Instructions/Handouts: Anterior Cervical Discectomy (DC) Activity/Diet/Wound Care/Special Instructions: 1. PARK WORKER brace must remain intact 24 hours per day; patient must leave brace intact even while bathing and sleeping 2. Patient may shower with waterproof dressings intact over the anterior and posterior cervical spine 3. Patient may remove tegaderm dressing in 4 days and shower without a dressing at that time 4. Patient should refrain from driving 5. Patient should avoid excessive cervical flexion, extension, and side bending; avoid overhead lifting; no lifting greater than 10 pounds 6. Take medications as prescribed 7. Do not soak in tub Discharge Disposition: HOME SELF-CARE
[2021-01-05 13:51] VITALS: BP 152/70; PULSE 109; RESP 20; TEMP 98.9
--- NOTE | 2021-01-05 14:33 | P.PN ---
Subjective Progress Note Date: 01/05/21 Patient is doing fairly well today. Her blood pressure was not well controlled this morning secondary to pain. Repeat blood pressure improved. No acute events overnight. Hemoglobin stable. Objective - Vital Signs Vital signs: Vital Signs Temp 98.9 F 01/05/21 13:51 Pulse 109 H 01/05/21 13:51 Resp 20 01/05/21 13:51 BP 152/70 01/05/21 13:51 Pulse Ox 94 L 01/05/21 13:51 Intake & Output 01/04/21 01/05/21 01/05/21 18:59 06:59 18:59 Intake Total 1110 200 Balance 1110 200 Intake: Oral 800 200 Blood Product 310 Rc As-1 Unit 310 [id number] Other: Voiding Method Indwelling Catheter Toilet Toilet # Voids 3 6 4 # Bowel Movements 1 - Exam General: The patient is awake and alert, in no distress Eye: there is normal conjunctiva bilaterally. Neck: Cervical collar in place Cardiovascular: Normal S1-S2, no S3-S4, no murmurs. Respiratory: Lungs clear to auscultation bilaterally Gastrointestinal: Abdomen is soft, nontender Musculoskeletal: There is no pedal edema. Neurological:. Speech is normal. Skin: Skin is warm and dry - Labs CBC & Chem 7: 01/05/21 05:18 01/05/21 05:18 Labs: Abnormal Lab Results - Last 24 Hours (Table) 01/04/21 01/05/21 Range/Units 14:15 05:18 WBC 17.71 H (4.50-10.00) X 10*3/uL RBC 3.20 L (4.10-5.20) X 10*6/uL Hgb 9.4 L (12.0-15.0) g/dL Hct 30.5 L (37.2-46.3) % MCHC 30.8 L (32.0-37.0) g/dL MPV 9.4 L (9.5-12.2) fL Immature Gran # 0.07 H (0.00-0.04) X 10*3/uL Neutrophils # 14.10 H (1.80-7.70) X 10*3/uL Monocytes # 1.05 H (0.20-1.00) X 10*3/uL Eosinophils # 0.38 H (0.04-0.35) X 10*3/uL Crossmatch See Detail Assessment and Plan Assessment: 1. Postoperative day #3 status post revision of anterior cervical fusion C3 through C6 with removal of hardware and bone graft,/anterior cervical fusion C3 through C7: Postoperative care per spine surgery. Pain control and DVT prophylaxis per primary team. 2. Acute blood loss anemia: Postoperative. Hemoglobin dropped from 11.8 on admission to 7.2 status post 1 unit of PRBC transfusion during this admission. Hemoglobin stabilized. 3. Acute kidney injury, improved with IV fluid hydration. 4. Hypokalemia, replaced 5. Leukocytosis, most likely reactive to surgery. No evidence of infection 6. Chronic medical problems: Chronic neck pain, underlying depression, GERD, hyperlipidemia, chronic insomnia Today, I reviewed her medication list and lab work results. Patient is cleared for discharge home.
== END 2021-01-05 17:25 | disposition home or self-care (01) | DRG 454 ==
LOC: EC 10:48 → 4SSUR 13:26
PROVIDERS: ADMIT Orthopaedic Surgery Orthopaedic Surgery of the Spine; ATTEND Orthopaedic Surgery Orthopaedic Surgery of the Spine
PROC: 0RG20A0 Fusion of 2 or more Cervical Vertebral Joints with Interbody Fusion Device, Anterior Approach, Anterior Column, Open Approach (ICD-10-PCS; principal; 2021-01-02 14:00)
PROC: 0RG2071 Fusion of 2 or more Cervical Vertebral Joints with Autologous Tissue Substitute, Posterior Approach, Posterior Column, Open Approach (ICD-10-PCS; principal; 2021-01-02 14:00)
PROC: 0RB30ZZ Excision of Cervical Vertebral Disc, Open Approach (ICD-10-PCS; principal; 2021-01-02 14:00)
PROC: 30230N1 Transfusion of Nonautologous Red Blood Cells into Peripheral Vein, Open Approach (ICD-10-PCS; 2021-01-04)
DX: T84.226A Displacement of internal fixation device of vertebrae, initial encounter (principal); N17.9 Acute kidney failure, unspecified; G95.89 Other specified diseases of spinal cord; D62 Acute posthemorrhagic anemia; M48.52XA Collapsed vertebra, not elsewhere classified, cervical region, initial encounter for fracture; Z20.822 Contact with and (suspected) exposure to COVID-19; M40.202 Unspecified kyphosis, cervical region; M43.12 Spondylolisthesis, cervical region; M48.02 Spinal stenosis, cervical region; M85.88 Other specified disorders of bone density and structure, other site; G89.29 Other chronic pain; E87.6 Hypokalemia; I10 Essential (primary) hypertension; F32.9 Major depressive disorder, single episode, unspecified; K21.9 Gastro-esophageal reflux disease without esophagitis; E78.5 Hyperlipidemia, unspecified; F51.04 Psychophysiologic insomnia; H40.9 Unspecified glaucoma; F41.9 Anxiety disorder, unspecified; F17.200 Nicotine dependence, unspecified, uncomplicated; Z79.82 Long term (current) use of aspirin; Z79.899 Other long term (current) drug therapy; M19.90 Unspecified osteoarthritis, unspecified site; Z87.440 Personal history of urinary (tract) infections; Z98.42 Cataract extraction status, left eye; Z98.41 Cataract extraction status, right eye; Z87.39 Personal history of other diseases of the musculoskeletal system and connective tissue; Z98.890 Other specified postprocedural states; Z88.0 Allergy status to penicillin; Z88.8 Allergy status to other drugs, medicaments and biological substances; Z91.040 Latex allergy status; Y83.4 Other reconstructive surgery as the cause of abnormal reaction of the patient, or of later complication, without mention of misadventure at the time of the procedure; Z81.8 Family history of other mental and behavioral disorders; Z80.9 Family history of malignant neoplasm, unspecified; Z82.3 Family history of stroke; Z83.2 Family history of diseases of the blood and blood-forming organs and certain disorders involving the immune mechanism; Z82.69 Family history of other diseases of the musculoskeletal system and connective tissue
CPT/HCPCS: 36415; 71046; 72040; 72125; 80048; 80053; 81003; 83735; 84100; 84484; 85025; 85610; 85730; 86850; 86900; 86901; 86920; 87635; 93005; 94760; 96361; 96374; 99285; C1762

== ENCOUNTER 2021-05-19 18:26 | Inpatient (IN) | payer MEDICARE ==
[2021-05-19] MEDS ORDERED: SODIUM CHLORIDE 0.9% 1,000 ML IV STA (19:10)
[2021-05-19] MEDS ORDERED: ADENOSINE 3 MG/ML 2 ML VIAL IVP STA ×2 (19:10→19:20)
[2021-05-19] MEDS ORDERED: ACETAMINOPHEN TAB 500 MG TAB PO STA (19:26)
[2021-05-19] MEDS ORDERED: KETOROLAC 15 MG/ML 1 ML VIAL IVP STA (19:27)
--- NOTE | 2021-05-19 19:29 | ED ---
General Adult HPI - General Chief complaint: Fever Stated complaint: Hip pain Time Seen by Provider: 05/19/21 19:09 Source: patient, family Mode of arrival: wheelchair Limitations: no limitations - History of Present Illness Initial comments: Patient is an 80-year-old female with past medical history remarkable for hyperlipidemia, osteoarthritis, UTIs who presents emergency Department after being brought by her daughter over concern for another UTI. Patient is febrile at home today at 103F. She has been acting normally, but has felt more tired over this time. She was complaining of palpitations in her heart beating quickly. They brought her to the emergency department for evaluation. Patient has been having polyuria but denies dysuria or hematuria. She denies abdominal pain. She denies chest pain. She denies any shortness of breath at this time. Denies any headaches, numbness, but does endorse generalized weakness. She denies any visual deficits. She does not have any known sick contacts, cough. She is no other acute complaints at this time. She does endorse bilateral hip pain which is chronic for her. - Related Data Home Medications Medication Instructions Recorded Confirmed Aspirin [Adult Low Dose Aspirin EC] 81 mg PO DAILY 08/22/16 05/19/21 Multivitamins, Thera [Multivitamin 1 tab PO DAILY 08/22/16 05/19/21 (formulary)] Ascorbic Acid [Vitamin C] 1,000 mg PO BID 12/22/20 05/19/21 Atorvastatin [Lipitor] 20 mg PO DAILY 12/22/20 05/19/21 Fluticasone Nasal Strong [Flonase 1 spray EA NOSTRIL BID 12/22/20 05/19/21 Nasal Strong] Gabapentin [Neurontin] 300 mg PO BID 01/02/21 05/19/21 Pantoprazole Sodium [Protonix] 20 mg PO DAILY 01/02/21 05/19/21 Zolpidem [Ambien] 5 mg PO HS PRN 01/02/21 05/19/21 Cyclobenzaprine [Flexeril] 10 mg PO BID 05/19/21 05/19/21 Escitalopram [Lexapro] 20 mg PO DAILY 05/19/21 05/19/21 Fiber 500mg 500 mg PO BID 05/19/21 05/19/21 Glycopyrrolate [Robinul Forte] 2 mg PO BID 05/19/21 05/19/21 HYDROcodone/APAP 10-325MG [[place] 1 tab PO Q8H PRN 05/19/21 05/19/21 10] Lactulose 20 gm PO DAILY 05/19/21 05/19/21 Turmeric Root Extract [Turmeric] 500 mg PO BID 05/19/21 05/19/21 Allergies Allergy/AdvReac Type Severity Reaction Status Date / Time baclofen Allergy Unknown Verified 05/19/21 19:32 latex Allergy Swelling Verified 05/19/21 19:32 Penicillins Allergy Nausea & Verified 05/19/21 19:32 Vomiting quinine Allergy Rapid Verified 05/19/21 19:32 Heart Rate Review of Systems ROS Statement: Those systems with pertinent positive or pertinent negative responses have been documented in the HPI. Review of Systems: CONST: Endorses fever EYES: Denies blurry vision ENT: Denies nasal congestion C/V: Denies Chest pain RESP: Denies shortness of breath GI: Denies abdominal pain : Endorses polyuria SKIN: Denies rash. MSK: Endorses chronic hip pain NEURO: Denies headache ROS Other: All systems not noted in ROS Statement are negative. Past Medical History Past Medical History: Hyperlipidemia, Osteoarthritis (OA) Additional Past Medical History / Comment(s): HX SPINAL STENOSIS/OSTEOARTHRITIS. Cervical myelopathy with upper extremity weakness status post anterior cervical decompression and fusion on 12/23/2020. Recurrent urinary tract infections History of Any Multi-Drug Resistant Organisms: None Reported Past Surgical History: Back Surgery Additional Past Surgical History / Comment(s): HX HAND NEUROMA LEFT FOOT/ BILAT CATARACTS REMOVED AND GLAUCOMA, neck surgery Past Anesthesia/Blood Transfusion Reactions: No Reported Reaction Past Psychological History: Anxiety Smoking Status: Current every day smoker Past Alcohol Use History: None Reported Past Drug Use History: None Reported - Past Family History Mother Family Medical History: Dementia Additional Family Medical History / Comment(s): AGE 97 OF NATURAL CAUSES Brother(s) Family Medical History: Cancer Additional Family Medical History / Comment(s): HX ASBESTOS Sister(s) Family Medical History: CVA/TIA Daughter(s) Additional Family Medical History / Comment(s): ANXIETY/SCOLIOSIS Son(s) Additional Family Medical History / Comment(s): HX HEMOCHROMATOSIS General Exam - General Exam Comments Initial Comments: General: Appears in no acute distress. HEAD: Normal with no signs of head trauma. EYES: PERRLA, EOMI, conjunctiva normal, no discharge. Pupils are 3 mm and reactive bilaterally. ENT: Hearing grossly intact, normal oropharynx. RESPIRATORY: Clear breath sounds bilaterally. No wheezes, rales, or rhonchi. C/V: Patient is tachycardic with a regular rhythm. S1 and S2 auscultated. No peripheral edema. Peripheral pulses are 2+ and intact throughout. ABD: Abd is soft, nontender, nondistended EXT: Normal range of motion, no obvious deformity SKIN: No rashes or lesions observed on exposed skin. NEURO: Alert and oriented 4. No focal deficits. Acting baseline. Limitations: no limitations Course Vital Signs 05/19/21 05/19/21 05/19/21 18:32 19:00 19:07 Temperature 103.2 F H Pulse Rate 142 H 187 H 117 H Respiratory 24 18 20 Rate Blood Pressure 148/92 155/114 177/94 O2 Sat by Pulse 94 L 98 98 Oximetry 05/19/21 05/19/21 05/19/21 19:47 19:59 20:00 Temperature Pulse Rate 117 H 110 H 110 H Respiratory 20 20 20 Rate Blood Pressure 197/106 188/101 188/101 O2 Sat by Pulse 98 98 99 Oximetry 05/19/21 05/19/21 20:15 20:30 Temperature 100.1 F H Pulse Rate 110 H 110 H Respiratory 18 20 Rate Blood Pressure 176/103 162/77 O2 Sat by Pulse 98 98 Oximetry Medical Decision Making - Medical Decision Making Based on the patient's presentation and physical exam, does appear that she is having supraventricular tachycardia, and there is concern for sepsis or infection as etiology. IV access was obtained. She was connected to the groundwater monitoring technician via pads. She was administered 6 known grams IV adenosine immediately, and SVT resolved. She is on sinus tachycardia. She'll be started on fluid boluses and we will obtain a broad workup. Blood cultures, lactate, basic labs, troponin. Urinalysis also be obtained. She'll be connected to continuous cardiac monitoring while she is here in the department. She'll be given an aspirin. Patient's daughter and patient are in agreement this plan. EKG following adenosine showed resolution of SVT. Chest x-ray revealed no acute cardio pulmonary process. Laboratory studies are remarkable for a normal lactic acid. Patient has a troponin of 0.5-1 which is likely a type II and STEMI secondary to her SVT earlier. She does have an AK I with his mom with a BUN/creatinine to 1.28. Patient is mildly hyponatremic telemetry and 31. She is a leukocytosis of 16.6. Urinalysis is still pending at this time. I reevaluated the patient multiple times, and it showed that her heart rate was improving throughout her stay in the emergency department. I updated the patient's family members and the patient results of her laboratory studies multiple times. Due To the patient's fever, tachycardia, and leukocytosis, she does meet sepsis criteria and therefore will be started on broad-spectrum antibiotics. Is likely secondary to UTI, however urinalysis still pending at this time. She'll be started on vancomycin and cefepime and administered an additional 1 L fluid bolus. This will exceed the 20 mL per KG recommendation for fluid bolus. Lactic acid is normal. Cultures are pending. I discussed with the patient as well as her daughter that I would like to admitted the hospital for further management. There were agreement this plan. Patient's heart rate is improving and she remains in sinus rhythm on reevaluation. I consult with Dr. Contreras to cardiology regarding elevated troponin as well as SVT and he was in agreement with the plan. We will trend troponins and heparin is not required at this time is likely secondary to the SVT. I spoke with the admitting team under Dr. Valdez who accepted the patient. Patient was therefore admitted to telemetry in serious condition. - Lab Data Result diagrams: 05/19/21 19:10 05/19/21 19:10 Lab Results 05/19/21 05/19/21 05/19/21 Range/Units 19:10 19:10 19:10 WBC 16.6 H (3.8-10.6) k/uL RBC 4.81 (3.80-5.40) m/uL Hgb 14.5 (11.4-16.0) gm/dL Hct 43.4 (34.0-46.0) % MCV 90.2 (80.0-100.0) fL MCH 30.2 (25.0-35.0) pg MCHC 33.4 (31.0-37.0) g/dL RDW 14.6 (11.5-15.5) % Plt Count 460 H (150-450) k/uL MPV 7.4 Neutrophils % 71 % Lymphocytes % 21 % Monocytes % 6 % Eosinophils % 0 % Basophils % 1 % Neutrophils # 11.8 H (1.3-7.7) k/uL Lymphocytes # 3.5 (1.0-4.8) k/uL Monocytes # 1.0 (0-1.0) k/uL Eosinophils # 0.0 (0-0.7) k/uL Basophils # 0.1 (0-0.2) k/uL PT 10.9 (9.0-12.0) sec INR 1.0 (<1.2) APTT 25.1 (22.0-30.0) sec D-Dimer 0.59 (<0.60) mg/L FEU Sodium 131 L (137-145) mmol/L Potassium 4.2 (3.5-5.1) mmol/L Chloride 94 L (98-107) mmol/L Carbon Dioxide 26 (22-30) mmol/L Anion Gap 11 mmol/L BUN 20 H (7-17) mg/dL Creatinine 1.28 H (0.52-1.04) mg/dL Est GFR (CKD-EPI)AfAm 45 (>60 ml/min/1.73 sqM) Est GFR (CKD-EPI)NonAf 39 (>60 ml/min/1.73 sqM) Glucose 112 H (74-99) mg/dL Plasma Lactic Acid Alan (0.7-2.0) mmol/L Calcium 10.2 (8.4-10.2) mg/dL Magnesium 1.8 (1.6-2.3) mg/dL Total Bilirubin 1.0 (0.2-1.3) mg/dL AST 31 (14-36) U/L ALT 11 (4-34) U/L Alkaline Phosphatase 52 (38-126) U/L Troponin I (0.000-0.034) ng/mL Total Protein 7.2 (6.3-8.2) g/dL Albumin 4.4 (3.5-5.0) g/dL 05/19/21 05/19/21 Range/Units 19:10 19:10 WBC (3.8-10.6) k/uL RBC (3.80-5.40) m/uL Hgb (11.4-16.0) gm/dL Hct (34.0-46.0) % MCV (80.0-100.0) fL MCH (25.0-35.0) pg MCHC (31.0-37.0) g/dL RDW (11.5-15.5) % Plt Count (150-450) k/uL MPV Neutrophils % % Lymphocytes % % Monocytes % % Eosinophils % % Basophils % % Neutrophils # (1.3-7.7) k/uL Lymphocytes # (1.0-4.8) k/uL Monocytes # (0-1.0) k/uL Eosinophils # (0-0.7) k/uL Basophils # (0-0.2) k/uL PT (9.0-12.0) sec INR (<1.2) APTT (22.0-30.0) sec D-Dimer (<0.60) mg/L FEU Sodium (137-145) mmol/L Potassium (3.5-5.1) mmol/L Chloride (98-107) mmol/L Carbon Dioxide (22-30) mmol/L Anion Gap mmol/L BUN (7-17) mg/dL Creatinine (0.52-1.04) mg/dL Est GFR (CKD-EPI)AfAm (>60 ml/min/1.73 sqM) Est GFR (CKD-EPI)NonAf (>60 ml/min/1.73 sqM) Glucose (74-99) mg/dL Plasma Lactic Acid Alan 1.1 (0.7-2.0) mmol/L Calcium (8.4-10.2) mg/dL Magnesium (1.6-2.3) mg/dL Total Bilirubin (0.2-1.3) mg/dL AST (14-36) U/L ALT (4-34) U/L Alkaline Phosphatase (38-126) U/L Troponin I 0.521 H* (0.000-0.034) ng/mL Total Protein (6.3-8.2) g/dL Albumin (3.5-5.0) g/dL - EKG Data -: EKG Interpreted by Me EKG Comments: 12-lead Electrocardiogram Interpretation Note EKG was reviewed and interpreted by myself. 12-lead ECG performed at 1853 is interpreted by me as revealing supraventricular tachycardia at a rate of 196 beats per minute. [place] is normal. LA interval is unobtainable, QRS duration 74 ms, QTc is 440 ms.. There is an isolated T-wave inversion in lead V2. R wave progression across the precordium was satisfactory. By my interpretation this EKG is non-diagnostic for acute ischemia. It does reveal SVT. Repeat EKG was obtained following 6 mg of adenosine IV push. 12-lead Electrocardiogram Interpretation Note EKG was reviewed and interpreted by myself. 12-lead ECG performed at 1905 is interpreted by me as revealing sinus tachycardia at a rate of 127 beats per minute. [place] is normal. LA intervals 150 ms, QRS ration is 76 ms, QTc is 421 ms.. There were no ST or T wave abnormalities to suggest myocardial ischemia or injury. R wave progression across the precordium was satisfactory. By my interpretation this EKG is non-diagnostic for acute ischemia. SVT has resolved. Critical Care Time Critical Care Time: Yes Total Critical Care Time: 30 Critical Care Time: Upon my evaluation, this patient had a high probability of imminent or life- threatening deterioration due to sepsis, SVT, which required my direct attention, intervention, and personal management. I have personally provided 30 minutes of critical care time exclusive of time spent on separately billable procedures. Time includes review of laboratory data, radiology results, discussion with consultants, and monitoring for potential decompensation. Interventions were performed as documented in my note. Disposition Clinical Impression: Sepsis, Fever of unknown origin, SVT (supraventricular tachycardia), Hyp onatremia, Dehydration, Elevated troponin, MARYANNE (acute kidney injury) Disposition: ADMITTED IP TO THIS HOSP Condition: Serious Referrals: Ama Frederick MD [Primary Care Provider] - 1-2 days
[2021-05-19 19:40] LABS: Basophils # (A) 0.1 k/uL (0-0.2); Basophils % (A) 1 %; Eosinophils % (A) 0 %; HCT 43.4 % (34.0-46.0); HGB 14.5 gm/dL (11.4-16.0); Lymphocytes # (A) 3.5 k/uL (1.0-4.8); Lymphocytes % (A) 21 %; MCH 30.2 pg (25.0-35.0); MCHC 33.4 g/dL (31.0-37.0); MCV 90.2 fL (80.0-100.0); Mean Platelet Volume 7.4; Monocytes % (A) 6 %; Neutrophils # (A) 11.8 k/uL (1.3-7.7); Neutrophils % (A) 71 %; Platelet Count 460 k/uL (150-450); RBC 4.81 m/uL (3.80-5.40); RDW 14.6 % (11.5-15.5); WBC 16.6 k/uL (3.8-10.6)
[2021-05-19 19:44] LABS: Albumin 4.4 g/dL (3.5-5.0); Calcium 10.2 mg/dL (8.4-10.2); Magnesium 1.8 mg/dL (1.6-2.3); Total Protein 7.2 g/dL (6.3-8.2)
[2021-05-19 19:53] LABS: Partial Thromboplastin Time 25.1 sec (22.0-30.0); Prothrombin Time 10.9 sec (9.0-12.0)
--- NOTE | 2021-05-19 20:04 | XR ---
EXAMINATION TYPE: XR chest 2V DATE OF EXAM: 05/19/2021 COMPARISON: 01/02/2021. HISTORY: Fever and back pain. TECHNIQUE: Frontal and lateral views of the chest are obtained. FINDINGS: There is diffuse mild interstitial prominence. No pleural effusion, or pneumothorax seen. The cardiac silhouette size is within normal limits. No acute osseous abnormality. Partially imaged lumbar spine fusion and thoracic neurostimulator device seen. Aortic arch calcifications noted. IMPRESSION: Mild interstitial edema versus atelectasis
[2021-05-19 20:05] LABS: Potassium 4.2 mmol/L (3.5-5.1)
[2021-05-19] MEDS ORDERED: hydrALAZINE HCL 20 MG/ML 1 ML VIAL IVP STA (20:07)
[2021-05-19] MEDS ORDERED: VANCOMYCIN IV PER PHARMACY 1 EACH MISC MISCELLANE PRN (20:31)
[2021-05-19] MEDS ORDERED: CEFEPIME 1 GM in SODIUM CHLORIDE 0.9% 50 ML IVPB STA (20:31)
[2021-05-19] MEDS ORDERED: SODIUM CHLORIDE 0.9% 1,000 ML IV ONE (20:36)
[2021-05-19] MEDS ORDERED: IBUPROFEN 400 MG TAB PO PRN (21:06)
[2021-05-19] MEDS ORDERED: ACETAMINOPHEN TAB 325 MG TAB PO PRN (21:06)
[2021-05-19] MEDS ORDERED: VANCOMYCIN 1,000 MG in SODIUM CHLORIDE 0.9% 250 ML IVPB ONE (21:15)
[2021-05-20] MEDS ORDERED: HEPARIN SODIUM 1,000 UN/ML (10ML VL) IV PRN (00:16)
[2021-05-20] MEDS ORDERED: SODIUM CHLORIDE 0.9% 1,000 ML IV ONE (00:18)
[2021-05-20] MEDS: SODIUM CHLORIDE 0.9% 1,000 ML IV SCH ×2 (00:24→10:41)
[2021-05-20] MEDS ORDERED: HEPARIN SOD,PORK IN 0.45% NACL 25,000 UNIT in 0.45% NACL 1 250ML.BAG IV SCH (00:30)
[2021-05-20 01:37] LABS: Basophils # (A) 0.1 k/uL (0-0.2); Basophils % (A) 1 %; Eosinophils # (A) 0.1 k/uL (0-0.7); Eosinophils % (A) 1 %; HCT 35.2 % (34.0-46.0); HGB 11.7 gm/dL (11.4-16.0); Lymphocytes # (A) 3.6 k/uL (1.0-4.8); Lymphocytes % (A) 26 %; MCH 30.2 pg (25.0-35.0); MCHC 33.4 g/dL (31.0-37.0); MCV 90.5 fL (80.0-100.0); Mean Platelet Volume 6.9; Monocytes # (A) 0.9 k/uL (0-1.0); Monocytes % (A) 7 %; Neutrophils # (A) 8.7 k/uL (1.3-7.7); Neutrophils % (A) 64 %; Platelet Count 347 k/uL (150-450); RBC 3.88 m/uL (3.80-5.40); RDW 13.8 % (11.5-15.5); WBC 13.6 k/uL (3.8-10.6)
[2021-05-20 01:46] LABS: INR 1.1 (<1.2); Partial Thromboplastin Time 29.7 sec (22.0-30.0); Prothrombin Time 11.6 sec (9.0-12.0)
[2021-05-20 02:13] LABS: Appearance,Urine Clear (Clear); Bilirubin,Urine Negative (Negative); Blood,Urine Negative (Negative); Color,Urine Yellow; Glucose,Urine (UA) Negative (Negative); Ketones,Urine Negative (Negative); Leukocyte Esterase,Urine Negative (Negative); Nitrite,Urine Negative (Negative); PH, Urine 6.5 (5.0-8.0); Protein,Urine Trace (Negative); Urobilinogen,Urine <2.0 mg/dL (<2.0)
--- NOTE | 2021-05-20 02:24 | P.HPIM ---
History of Present Illness H&P Date: 05/19/21 Chief Complaint: Confusion, fever 80-year-old female with hypertension, hyperlipidemia, frequent UTI During my interview patient was sleeping she woke up at the end to confirm her daughter's report to me however bulk of the history was obtained by talking to the daughter. Seems like patient has been vaccinated for Covid back in January she has been doing well until a few days ago when she seemed to have some generalized fatigue She started to have some decrease in her by mouth intake along with polyuria and try to verify whether this is frequency or polyuria however the patient herself insisted that she's urinating frequently with large volumes. She denies any abdominal pain but does report right flank pain she denies any hematuria but does report irritation when she urinates suggestive of dysuria she denies any diarrhea denies any nausea or vomiting. However today she seemed to be more confused per her daughter and even weaker and more tired she had very poor by mouth intake and when her daughter checked her temperature it was high at 103 patient was having some palpitations for which she was brought to the hospital There is no report of any sick contacts no coughing there is no report of chest pain or trouble breathing there is no report of headache dizziness or lightheadedness or any syncope nor reports of falling. No reports of bleeding In the ED she was found to have supraventricular tachycardia which was reversed with adenosine one-time dose of 6 mg Patient was also found to have elevated white count and fever along with acute kidney injury her lactic acid was negative Patient was given boluses of IV fluid for sepsis and started on empiric antibiotics Urine analysis was not sent yet due to failure to obtain urine sample Troponins was elevated however per ED physician after discussion with cardiology it was thought to be secondary to demand ischemia from SVT, with no need for heparin drip at this time and recommended to continue to trend troponins in case it starts trending up Review of Systems Pertinent positives as noted in HPI. All other systems were reviewed and are negative Past Medical History Past Medical History: Hyperlipidemia, Osteoarthritis (OA) Additional Past Medical History / Comment(s): HX SPINAL STENOSIS/OSTEOARTHRITIS. Cervical myelopathy with upper extremity weakness status post anterior cervical decompression and fusion on 12/23/2020. Recurrent urinary tract infections History of Any Multi-Drug Resistant Organisms: None Reported Past Surgical History: Back Surgery Additional Past Surgical History / Comment(s): HX HAND NEUROMA LEFT FOOT/ BILAT CATARACTS REMOVED AND GLAUCOMA, neck surgery Past Anesthesia/Blood Transfusion Reactions: No Reported Reaction Past Psychological History: Anxiety Smoking Status: Current every day smoker Past Alcohol Use History: None Reported Past Drug Use History: None Reported - Past Family History Mother Family Medical History: Dementia Additional Family Medical History / Comment(s): AGE 97 OF NATURAL CAUSES Brother(s) Family Medical History: Cancer Additional Family Medical History / Comment(s): HX ASBESTOS Sister(s) Family Medical History: CVA/TIA Daughter(s) Additional Family Medical History / Comment(s): ANXIETY/SCOLIOSIS Son(s) Additional Family Medical History / Comment(s): HX HEMOCHROMATOSIS Medications and Allergies Home Medications Medication Instructions Recorded Confirmed Type Aspirin [Adult Low Dose Aspirin EC] 81 mg PO DAILY 08/22/16 05/19/21 History Multivitamins, Thera [Multivitamin 1 tab PO DAILY 08/22/16 05/19/21 History (formulary)] Ascorbic Acid [Vitamin C] 1,000 mg PO BID 12/22/20 05/19/21 History Atorvastatin [Lipitor] 20 mg PO DAILY 12/22/20 05/19/21 History Fluticasone Nasal [place] [Flonase 1 spray EA NOSTRIL BID 12/22/20 05/19/21 History Nasal [place]] Gabapentin [Neurontin] 300 mg PO BID 01/02/21 05/19/21 History Pantoprazole Sodium [Protonix] 20 mg PO DAILY 01/02/21 05/19/21 History Zolpidem [Ambien] 5 mg PO HS PRN 01/02/21 05/19/21 History Cyclobenzaprine [Flexeril] 10 mg PO BID 05/19/21 05/19/21 History Escitalopram [Lexapro] 20 mg PO DAILY 05/19/21 05/19/21 History Fiber 500mg 500 mg PO BID 05/19/21 05/19/21 History Glycopyrrolate [Robinul Forte] 2 mg PO BID 05/19/21 05/19/21 History HYDROcodone/APAP 10-325MG [[place] 1 tab PO Q8H PRN 05/19/21 05/19/21 History 10] Lactulose 20 gm PO DAILY 05/19/21 05/19/21 History Turmeric Root Extract [Turmeric] 500 mg PO BID 05/19/21 05/19/21 History Allergies Allergy/AdvReac Type Severity Reaction Status Date / Time baclofen Allergy Unknown Verified 05/19/21 19:32 latex Allergy Swelling Verified 05/19/21 19:32 Penicillins Allergy Nausea & Verified 05/19/21 19:32 Vomiting quinine Allergy Rapid Verified 05/19/21 19:32 Heart Rate Physical Exam Vitals: Vital Signs Temp Pulse Resp BP Pulse Ox 05/19/21 20:30 110 H 20 162/77 98 05/19/21 20:15 100.1 F H 110 H 18 176/103 98 05/19/21 20:00 110 H 20 188/101 99 05/19/21 19:59 110 H 20 188/101 98 05/19/21 19:47 117 H 20 197/106 98 05/19/21 19:07 117 H 20 177/94 98 05/19/21 19:00 187 H 18 155/114 98 05/19/21 18:32 103.2 F H 142 H 24 148/92 94 L Intake and Output 05/19/21 05/19/21 05/19/21 06:59 14:59 22:59 Other: Weight 52.163 kg Constitutional: No acute distress, conversant, pleasant Eyes: Anicteric sclerae, Pupils equal round reactive to light ENMT: NC/AT Oropharynx clear, dry mucous membranes, no erythema, or exudates Neck: Supple, no masses, or JVD No carotid bruits No thyromegaly Lungs: Clear to auscultation Clear to percussion Normal respiratory effort, no accessory muscle use Cardiovascular: Heart regular in rate and rhythm, No murmurs, gallops, or rubs No peripheral edema Abdominal: Soft Tenderness to tapping over the right costovertebral angle, otherwise abdomen Nontender, no guarding, rebound or rigidity Abdomen moving with respiration Normoactive bowel sounds No hepatomegaly, No splenomegaly No palpable mass No abdominal wall hernia noted Skin: Normal temperature, tone, texture, turgor No induration No subcutaneous nodules No rash, lesions No ulcers Extremities: No digital cyanosis No clubbing Pedal pulses intact and symmetrical Radial pulses intact and symmetrical No calf tenderness Psychiatric: Alert and oriented to person, place Appropriate affect Neuro Muscles Strength -4/5 in all 4 extremities Sensation to light touch grossly present throughout Cranial nerves II-XII grossly intact No focal sensory deficits Lymphatics: no palpable cervical or supraclavicular , or inguinal lymph nodes Results CBC & Chem 7: 05/20/21 01:15 05/19/21 19:10 Labs: Abnormal Lab Results - Last 24 Hours (Table) 05/19/21 05/19/21 05/19/21 Range/Units 19:10 19:10 19:10 WBC 16.6 H (3.8-10.6) k/uL Plt Count 460 H (150-450) k/uL Neutrophils # 11.8 H (1.3-7.7) k/uL Sodium 131 L (137-145) mmol/L Chloride 94 L (98-107) mmol/L BUN 20 H (7-17) mg/dL Creatinine 1.28 H (0.52-1.04) mg/dL Glucose 112 H (74-99) mg/dL Troponin I 0.521 H* (0.000-0.034) ng/mL Assessment and Plan Assessment: Acute metabolic encephalopathy, improving Acute SVT This was aborted with one-time dose of adenosine 6 mg Continue cardiac monitoring Trend troponins Cardiology consult Sepsis secondary to suspected UTI Check blood cultures Obtain urine analysis with reflex to culture Start patient on empiric antibiotics she received vancomycin and cefepime in the ED We'll continue with Rocephin Aggressive IV fluid hydration with normal saline Symptomatic control Tylenol for fever Patient is vaccinated for Covid back in January No respiratory symptoms, no skin changes, no signs of meningeal irritation Lactic acid normal Acute kidney injury most likely secondary to ATN from prerenal hypoperfusion rule out possible urinary outlet obstruction with overflow incontinence Avoid nephrotoxic meds Bladder scan showed 600 mL in the urinary bladder however after insertion of Hernandez catheter no urine was obtainable challenge again with another 1 L bolus of normal saline and reassess Consults urology to evaluate for possible urinary retention and urinary outlet obstruction If renal function worsens check renal ultrasound to rule out obstructive uropathy Check urine analysis when obtainable and reflex to culture Elevated troponin trending up, rule out NSTEMI Initially cardiology thought elevated troponins could be secondary to SVT from demand ischemia and sepsis However due to troponins trending up, we'll initiate the patient on heparin drip no bolus Continue to trend troponins, Cardiac monitoring Cardiology eval Hyponatremia Suspected to be secondary to dehydration Continue with IV fluid hydration with normal saline Follow-up sodium levels Fall precautions GI prophylaxis with PPI DVT prophylaxis currently on heparin drip for possible ACS Anticipated length of stay more than 2 midnights Anticipated discharge to home Patient is full code A total of 75 minutes was spent on the care of this complex patient more than 50% of the time was spent in counseling and care coordination.
[2021-05-20] MEDS ORDERED: VANCOMYCIN IV PER PHARMACY 1 EACH MISC MISCELLANE PRN (02:34)
[2021-05-20] MEDS: HYDROcodone/APAP 10-325MG 1 EACH TAB PO PRN ×2 (04:33→18:55)
[2021-05-20] MEDS: PANTOPRAZOLE SODIUM 40 MG GRANULE PKT PO SCH (06:14)
[2021-05-20 07:14] LABS: Basophils # (A) 0.1 k/uL (0-0.2); Basophils % (A) 0 %; Eosinophils # (A) 0.1 k/uL (0-0.7); Eosinophils % (A) 1 %; HGB 11.5 gm/dL (11.4-16.0); Lymphocytes # (A) 3.2 k/uL (1.0-4.8); Lymphocytes % (A) 25 %; MCH 30.2 pg (25.0-35.0); MCHC 33.7 g/dL (31.0-37.0); MCV 89.5 fL (80.0-100.0); Mean Platelet Volume 6.6; Monocytes # (A) 0.6 k/uL (0-1.0); Monocytes % (A) 5 %; Neutrophils # (A) 8.6 k/uL (1.3-7.7); Neutrophils % (A) 67 %; Platelet Count 362 k/uL (150-450); RDW 14.3 % (11.5-15.5); WBC 12.8 k/uL (3.8-10.6)
[2021-05-20 07:21] LABS: Calcium 8.6 mg/dL (8.4-10.2); Potassium 2.9 mmol/L (3.5-5.1)
[2021-05-20] MEDS: GABAPENTIN 300 MG CAP PO SCH ×2 (08:56→20:13)
[2021-05-20] MEDS: CYCLOBENZAPRINE 10 MG TAB PO SCH ×2 (08:56→20:13)
[2021-05-20] MEDS: ATORVASTATIN 20 MG TAB PO SCH (08:56)
[2021-05-20] MEDS: ESCITALOPRAM 20 MG TAB PO SCH (08:56)
[2021-05-20] MEDS ORDERED: ASPIRIN 325 MG TAB PO SCH (09:00)
[2021-05-20] MEDS ORDERED: ASPIRIN 81 MG PO SCH (09:00)
[2021-05-20] MEDS: FLUTICASONE 50MCG/SPRAY NASAL 16GM EA NOSTRIL SCH ×2 (09:04→20:13)
[2021-05-20] MEDS: METOPROLOL TARTRATE 25 MG TAB PO SCH ×2 (10:41→20:13)
[2021-05-20] MEDS: POTASSIUM CHLORIDE 10 MEQ in WATER FOR INJECTION 1 100ML.BAG IVPB SCH ×4 (10:41→13:41)
[2021-05-20] MEDS ORDERED: CALCIUM CARBONATE 500 MG CHEWABLE PO PRN (13:45)
[2021-05-20] MEDS: PANTOPRAZOLE 40 MG TABLET PO SCH (14:18)
--- NOTE | 2021-05-20 19:11 | CONS ---
CONSULTATION Mrs. Montes is an 80-year-old female who presented to the emergency room, brought in by her daughter for not feeling well. Apparently, the patient tells me that she did not feel well. She was getting more sleepy and her daughter brought her into the emergency room. She is somewhat vague about what brought her in back. Cardiology consultation was requested because of SVT on presentation that was terminated with adenosine. She had mild troponin elevation. The patient has been followed by comb machine operator in [place]. She is not quite sure what cardiac issue she had, but she denies any history of heart failure or obstructive coronary artery disease. She denies any palpitation yesterday. She is not aware of the fast heartbeat. She has been complaining of leg discomfort. She has no PND, orthopnea, or peripheral edema. She was febrile on presentation. It is unclear if she had a prior history of SVT. Her coronary risk factors are positive for chronic tobacco use. She smokes about half a pack to a pack a day. She has hyperlipidemia. She had a prior history of hypertension, although it does not appear that she is on antihypertensive regimen on the list of medication available to me. MEDICATION: At the time of admission included: Aspirin, Lipitor 20 mg daily, Flexeril, Lexapro 20 mg daily, Flonase, Neurontin, [place], Protonix, turmeric and Ambien. REVIEW OF SYSTEMS: Respiratory system: She denies any recent wheezing or cough. She has chronic tobacco use. She is not very active physically. GI system: She denies any nausea and vomiting. No peptic ulcer disease. system: She denies any dysuria or hematuria. Nervous system: No stroke or seizure. PHYSICAL EXAMINATION: She is an 80-year-old female, alert, confused at times in no apparent distress. Temperature on presentation 103.2. She had a heart rate in the 140s and 180s initially. She is afebrile this morning. Her blood pressure 160/70 with a heart rate in the 80s. HEAD: Normocephalic. Eyes sclerae anicteric. NECK: Good upstroke. No bruit. No jugular venous distention. LUNGS: Clear to auscultation. HEART: Regular rate and rhythm, S1, S2. No S3 with systolic murmur at the left sternal border. No diastolic murmur. No rub. ABDOMEN: Soft, nontender. Positive bowel sounds. No organomegaly. EXTREMITIES: No edema. Intact distal pulses. LAB DATA: The white blood cell on presentation of 16.6, hemoglobin of 11.5, potassium of 2.9 this morning, was 4.2 yesterday. BUN and creatinine of 19 and 0.94. Her troponin is 0.521, 0.765 and 0.581. Her coronavirus PCR is negative. Initial EKG revealed SVT at a rate of 186. Subsequent EKG is sinus mechanism, rate of [address]-T wave changes. IMPRESSION: 1. Febrile episode. Workup in progress. Patient started on antibiotics. 2. 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 It is unclear if the patient had a prior history of SVT. 3. Mild troponin elevation related to the tachycardia and the febrile episode. 4. Dehydration, improved. 5. History of chronic tobacco use. 6. Hypertension. 7. Hyperlipidemia. RECOMMENDATIONS: From the cardiac standpoint, I will start her on a beta florecita. I do not believe that troponin elevation reflects an acute ischemic event. I will stop her IV heparin. I will obtain echocardiogram with Doppler. We will continue on the statin. She has been started on antibiotics. I will continue to follow her renal function and depending on her progress, further recommendations will be made. Thank you for this consult. We will follow with you. MARIONL / IJN: [id number] /
--- NOTE | 2021-05-20 20:21 | P.PN ---
Subjective Progress Note Date: 05/20/21 Principal diagnosis: confusion, fever Patient is an 80-year-old female with a past medical history of hypertension, dyslipidemia, and recurrent urinary tract infection who presented to the ER with confusion and fever. She was found to have SVT in the emergency department which converted with 6 mg of adenosine 1. She was also found to have an elevated white count, fever, a I, subsequently started on empiric antibiotics and fluids for possible sepsis. Her troponin was slightly elevated which was thought to be due to demand ischemia from SVT. She was admitted for further monitoring. Initial chest x-ray showed no acute process. Initial COVID testing was negative. Urinalysis also came back unremarkable. Patient was continued on empiric antibiotics that she continued to have an elevated white blood cell count. COVID PCR was sent. Patient seen and examined at bedside. She complains of acid reflux-type feeling, she denies any nausea or vomiting. She denies any pain. She denies any cough but does have a sore throat, no runny nose. General: non toxic, no distress, appears at stated age Derm: warm, dry Head: atraumatic, normocephalic, symmetric Eyes: EOMI, no lid lag, anicteric sclera Mouth: no lip lesion, mucus membranes moist, poor dentition, + pharyngeal erythema without exudate Cardiovascular: S1S2 reg, no murmur, positive posterior tibial pulse bilateral, Lungs: Coarse breath sounds bilateral, no rhonchi, no rales , no accessory muscle use Abdominal: soft, nontender to palpation, no guarding, no appreciable organomegaly Ext: no gross muscle atrophy, no edema, no contractures Neuro: CN II-XI grossly intact, no focal neuro deficits Psych: Alert, oriented, appropriate affect Sepsis, undetermined etiology -Await blood cultures -Continue with Rocephin -Repeat chest x-ray in a.m. -Repeat Covid testing -IV fluids Acute kidney injury, with possible urinary retention -Await urology recommendations -Improving with IV fluids -Avoid nephrotoxic agents -Repeat BMP in a.m. Non-STEMI, Type II secondary to demand ischemia from SVT and sepsis -Cardiology recommendations -Heparin drip discontinued by cardiology - aspirin, statin, metoprolol Hyponatremia -Secondary to dehydration -IV fluids -Improving -Repeat in a.m. Hypokalemia -Replace and recheck SVT, resolved DVT prophylaxis: heparin Discussed with: patient, nursing Anticipated discharge: undetermined Anticipated discharge place: undetermined A total of 35 minutes was spent on the care of this complex patient more than 50% of the time was spent in counseling and care coordination. Objective - Vital Signs Vital signs: Vital Signs Temp 98.2 F 05/20/21 16:00 Pulse 65 05/20/21 16:00 Resp 20 05/20/21 16:00 BP 150/72 05/20/21 16:00 Pulse Ox 95 05/20/21 16:00 Intake & Output 05/20/21 05/20/21 05/21/21 06:59 18:59 06:59 Intake Total 296.218 Output Total 700 Balance -700 296.218 Weight 58 kg Intake: Intake, IV Titration 58.218 Amount Heparin Sod,Pork in 0.45% 58.218 NaCl 25,000 unit In 0.45 % NaCl 1 250ml.bag @ 12 UNITS/KG/HR 6.26 mls/hr IV .Q24H [facility] Rx#: [id number] Oral 238 Output: Urine 700 Straight 700 Other: # Voids 1 # Bowel Movements 1 - Labs CBC & Chem 7: 05/20/21 06:32 05/20/21 06:32 Labs: Abnormal Lab Results - Last 24 Hours (Table) 05/19/21 05/19/21 05/19/21 Range/Units 19:10 19:10 21:59 WBC (3.8-10.6) k/uL Neutrophils # (1.3-7.7) k/uL APTT (22.0-30.0) sec Sodium 131 L (137-145) mmol/L Potassium (3.5-5.1) mmol/L Chloride 94 L (98-107) mmol/L BUN 20 H (7-17) mg/dL Creatinine 1.28 H (0.52-1.04) mg/dL Glucose 112 H (74-99) mg/dL Troponin I 0.521 H* 0.765 H* (0.000-0.034) ng/mL Urine Protein (Negative) 05/20/21 05/20/21 05/20/21 Range/Units 01:15 01:15 02:08 WBC 13.6 H (3.8-10.6) k/uL Neutrophils # 8.7 H (1.3-7.7) k/uL APTT (22.0-30.0) sec Sodium (137-145) mmol/L Potassium (3.5-5.1) mmol/L Chloride (98-107) mmol/L BUN (7-17) mg/dL Creatinine (0.52-1.04) mg/dL Glucose (74-99) mg/dL Troponin I 0.581 H* (0.000-0.034) ng/mL Urine Protein Trace H (Negative) 05/20/21 05/20/21 05/20/21 Range/Units 06:32 06:32 06:32 WBC 12.8 H (3.8-10.6) k/uL Neutrophils # 8.6 H (1.3-7.7) k/uL APTT 47.7 H (22.0-30.0) sec Sodium 134 L (137-145) mmol/L Potassium 2.9 L (3.5-5.1) mmol/L Chloride (98-107) mmol/L BUN 19 H (7-17) mg/dL Creatinine (0.52-1.04) mg/dL Glucose (74-99) mg/dL Troponin I (0.000-0.034) ng/mL Urine Protein (Negative)
[2021-05-20] MEDS ORDERED: VANCOMYCIN 1,000 MG in SODIUM CHLORIDE 0.9% 250 ML IVPB SCH ×4 (21:00)
[2021-05-21] MEDS: SODIUM CHLORIDE 0.9% 1,000 ML IV SCH ×2 (01:58→09:41)
[2021-05-21 05:33] LABS: Basophils # (A) 0.1 k/uL (0-0.2); Basophils % (A) 1 %; Eosinophils # (A) 0.3 k/uL (0-0.7); Eosinophils % (A) 2 %; HCT 33.5 % (34.0-46.0); HGB 11.1 gm/dL (11.4-16.0); Lymphocytes # (A) 2.5 k/uL (1.0-4.8); Lymphocytes % (A) 21 %; MCH 30.2 pg (25.0-35.0); MCV 91.5 fL (80.0-100.0); Mean Platelet Volume 7.9; Monocytes # (A) 0.6 k/uL (0-1.0); Monocytes % (A) 5 %; Neutrophils # (A) 8.6 k/uL (1.3-7.7); Neutrophils % (A) 71 %; Platelet Count 300 k/uL (150-450); RBC 3.66 m/uL (3.80-5.40); RDW 13.9 % (11.5-15.5); WBC 12.1 k/uL (3.8-10.6)
[2021-05-21 05:37] LABS: Prothrombin Time 11.1 sec (9.0-12.0)
[2021-05-21] MEDS: PANTOPRAZOLE SODIUM 40 MG GRANULE PKT PO SCH (05:53)
[2021-05-21 06:35] LABS: Calcium 8.2 mg/dL (8.4-10.2); Magnesium 1.6 mg/dL (1.6-2.3); Potassium 3.5 mmol/L (3.5-5.1)
[2021-05-21] MEDS: HYDROcodone/APAP 10-325MG 1 EACH TAB PO PRN (06:46)
[2021-05-21] MEDS: PANTOPRAZOLE 40 MG TABLET PO SCH (06:47)
--- NOTE | 2021-05-21 08:48 | P.GSCN ---
History of Present Illness Consult date: 05/21/21 Reason for Consult: Fever, recurrent UTI Requesting physician: Amy Valdez History of present illness: the patient is an 80-year-old white female who has been treated for recurrent UTIs. Her primary UTI symptoms and his difficulty voiding. She states that she has been treated for 4-5 UTIs in the past year. She was admitted with a fever and suspected UTI, but urinalysis was negative. Review of Systems - Genitourinary Genitourinary: Reports stress incontinence Past Medical History Past Medical History: Hyperlipidemia, Osteoarthritis (OA) Additional Past Medical History / Comment(s): HX SPINAL STENOSIS/OSTEOARTHRITIS. Cervical myelopathy with upper extremity weakness status post anterior cervical decompression and fusion on 12/23/2020. Recurrent urinary tract infections History of Any Multi-Drug Resistant Organisms: None Reported Past Surgical History: Back Surgery Additional Past Surgical History / Comment(s): HX HAND NEUROMA LEFT FOOT/ BILAT CATARACTS REMOVED AND GLAUCOMA, neck surgery Past Anesthesia/Blood Transfusion Reactions: No Reported Reaction Past Psychological History: Anxiety Smoking Status: Current every day smoker Past Alcohol Use History: None Reported Past Drug Use History: None Reported - Past Family History Mother Family Medical History: Dementia Additional Family Medical History / Comment(s): AGE 97 OF NATURAL CAUSES Brother(s) Family Medical History: Cancer Additional Family Medical History / Comment(s): HX ASBESTOS Sister(s) Family Medical History: CVA/TIA Daughter(s) Additional Family Medical History / Comment(s): ANXIETY/SCOLIOSIS Son(s) Additional Family Medical History / Comment(s): HX HEMOCHROMATOSIS Medications and Allergies Home Medications Medication Instructions Recorded Confirmed Type Aspirin [Adult Low Dose Aspirin EC] 81 mg PO DAILY 08/22/16 05/19/21 History Multivitamins, Thera [Multivitamin 1 tab PO DAILY 08/22/16 05/19/21 History (formulary)] Ascorbic Acid [Vitamin C] 1,000 mg PO BID 12/22/20 05/19/21 History Atorvastatin [Lipitor] 20 mg PO DAILY 12/22/20 05/19/21 History Fluticasone Nasal [place] [Flonase 1 spray EA NOSTRIL BID 12/22/20 05/19/21 History Nasal [place]] Gabapentin [Neurontin] 300 mg PO BID 01/02/21 05/19/21 History Pantoprazole Sodium [Protonix] 20 mg PO DAILY 01/02/21 05/19/21 History Zolpidem [Ambien] 5 mg PO HS PRN 01/02/21 05/19/21 History Cyclobenzaprine [Flexeril] 10 mg PO BID 05/19/21 05/19/21 History Escitalopram [Lexapro] 20 mg PO DAILY 05/19/21 05/19/21 History Fiber 500mg 500 mg PO BID 05/19/21 05/19/21 History Glycopyrrolate [Robinul Forte] 2 mg PO BID 05/19/21 05/19/21 History HYDROcodone/APAP 10-325MG [[place] 1 tab PO Q8H PRN 05/19/21 05/19/21 History 10] Lactulose 20 gm PO DAILY 05/19/21 05/19/21 History Turmeric Root Extract [Turmeric] 500 mg PO BID 05/19/21 05/19/21 History Allergies Allergy/AdvReac Type Severity Reaction Status Date / Time baclofen Allergy Unknown Verified 05/19/21 19:32 latex Allergy Swelling Verified 05/19/21 19:32 Penicillins Allergy Nausea & Verified 05/19/21 19:32 Vomiting quinine Allergy Rapid Verified 05/19/21 19:32 Heart Rate Surgical - Exam Vital Signs Temp Pulse Resp BP Pulse Ox 103.2 F H 142 H 24 148/92 94 L 05/19/21 18:32 05/19/21 18:32 05/19/21 18:32 05/19/21 18:32 05/19/21 18:32 - General well developed, well nourished, no distress - Respiratory normal respiratory effort - Abdomen Abdomen: soft, non tender, no guarding, no rigid, no rebound - Psychiatric oriented to time, oriented to person, oriented to place, speech is normal, memory intact Results - Labs 05/21/21 05:21 05/21/21 05:21 Abnormal Lab Results - Last 24 Hours (Table) 05/20/21 05/20/21 05/20/21 Range/Units 06:32 06:32 06:32 WBC 12.8 H (3.8-10.6) k/uL RBC (3.80-5.40) m/uL Hgb (11.4-16.0) gm/dL Hct (34.0-46.0) % Neutrophils # 8.6 H (1.3-7.7) k/uL APTT 47.7 H (22.0-30.0) sec Sodium 134 L (137-145) mmol/L Potassium 2.9 L (3.5-5.1) mmol/L BUN 19 H (7-17) mg/dL 05/21/21 Range/Units 05:21 WBC 12.1 H (3.8-10.6) k/uL RBC 3.66 L (3.80-5.40) m/uL Hgb 11.1 L (11.4-16.0) gm/dL Hct 33.5 L (34.0-46.0) % Neutrophils # 8.6 H (1.3-7.7) k/uL APTT (22.0-30.0) sec Sodium (137-145) mmol/L Potassium (3.5-5.1) mmol/L BUN (7-17) mg/dL Microbiology - Last 24 Hours (Table) 05/19/21 20:47 Blood Culture - Preliminary Blood No Growth after 24 hours 05/19/21 10:54 Blood Culture - Preliminary Blood No Growth after 24 hours Diabetes panel 05/20/21 Range/Units 06:32 Sodium 134 L (137-145) mmol/L Potassium 2.9 L (3.5-5.1) mmol/L Chloride 105 (98-107) mmol/L Carbon Dioxide 23 (22-30) mmol/L BUN 19 H (7-17) mg/dL Creatinine 0.94 (0.52-1.04) mg/dL Glucose 91 (74-99) mg/dL Calcium 8.6 (8.4-10.2) mg/dL Calcium panel 05/20/21 Range/Units 06:32 Calcium 8.6 (8.4-10.2) mg/dL Pituitary panel 05/20/21 Range/Units 06:32 Sodium 134 L (137-145) mmol/L Potassium 2.9 L (3.5-5.1) mmol/L Chloride 105 (98-107) mmol/L Carbon Dioxide 23 (22-30) mmol/L BUN 19 H (7-17) mg/dL Creatinine 0.94 (0.52-1.04) mg/dL Glucose 91 (74-99) mg/dL Calcium 8.6 (8.4-10.2) mg/dL Adrenal panel 05/20/21 Range/Units 06:32 Sodium 134 L (137-145) mmol/L Potassium 2.9 L (3.5-5.1) mmol/L Chloride 105 (98-107) mmol/L Carbon Dioxide 23 (22-30) mmol/L BUN 19 H (7-17) mg/dL Creatinine 0.94 (0.52-1.04) mg/dL Glucose 91 (74-99) mg/dL Calcium 8.6 (8.4-10.2) mg/dL Assessment and Plan (1) Chronic cystitis Current Visit: Yes Status: Acute Code(s): N30.20 - OTHER CHRONIC CYSTITIS WITHOUT HEMATURIA SNOMED Code(s): 90144956 Plan: I explained to the patient that there are multiple factors which can lead to recurrent UTIs. I reassured her that urinalysis shows no evidence of infection at this time. A postvoid residual be checked to assess bladder emptying. She was advised to schedule a follow-up appointment if she desires further evaluation. Please notify me if I can be of any further assistance. Time with Patient: Less than 30
[2021-05-21] MEDS ORDERED: ASPIRIN 81 MG PO SCH (09:00)
[2021-05-21] MEDS ORDERED: lisinopriL 5 MG TAB PO SCH (09:00)
[2021-05-21 09:31] VITALS: RESP 16
[2021-05-21] MEDS: GABAPENTIN 300 MG CAP PO SCH (09:39)
[2021-05-21] MEDS: CYCLOBENZAPRINE 10 MG TAB PO SCH (09:39)
[2021-05-21] MEDS: ESCITALOPRAM 20 MG TAB PO SCH (09:39)
[2021-05-21] MEDS: ATORVASTATIN 20 MG TAB PO SCH (09:39)
[2021-05-21] MEDS: METOPROLOL TARTRATE 25 MG TAB PO SCH (09:40)
[2021-05-21] MEDS: FLUTICASONE 50MCG/SPRAY NASAL 16GM EA NOSTRIL SCH (09:43)
--- NOTE | 2021-05-21 10:09 | XR ---
EXAMINATION TYPE: XR chest 1V portable DATE OF EXAM: 05/21/2021 COMPARISON: 1121 INDICATION: Pneumonia TECHNIQUE: Single frontal view of the chest is obtained. FINDINGS: The heart size is normal. The pulmonary vasculature is normal. The lungs are clear. No suspicious peripheral infiltrates. Aeration has improved over the interval. IMPRESSION: 1. No acute pulmonary process. Follow-up can be performed as clinically indicated.
--- NOTE | 2021-05-21 10:17 | P.PN ---
Subjective Progress Note Date: 05/21/21 This is a pleasant 80-year-old female patient was brought into the emergency department not feeling well. We're consulted because of SVT on presentation that was terminated with adenosine. Troponins were elevated. She follows the security auditor in [place]. She is a prior history of hypertension and hy perlipidemia. She smokes one half pack a day. Since admission she is maintaining sinus mechanism. She has been afebrile. Her white blood cell count is elevated Her blood pressure has been elevated. She is currently on atorvastatin 20 mg by mouth daily, IV ceftriaxone, metoprolol tartrate 25 mg by mouth twice a day. Potassium was low yesterday 2.9 and is up 3.5 after supplementation. Her labs stable this morning. On examination she is resting completely embedded. She's feeling somewhat better. Continues to complain of some shortness of breath at times. Objective - Vital Signs Vital signs: Vital Signs Temp 97.7 F 05/21/21 09:27 Pulse 71 05/21/21 09:27 Resp 16 05/21/21 09:27 BP 150/69 05/21/21 09:27 Pulse Ox 97 05/21/21 09:27 Intake & Output 05/20/21 05/21/21 05/21/21 18:59 06:59 18:59 Intake Total 296.218 180 Output Total 125 Balance 296.218 55 Weight 55.7 kg Intake: Intake, IV Titration 58.218 Amount Heparin Sod,Pork in 0.45% 58.218 NaCl 25,000 unit In 0.45 % NaCl 1 250ml.bag @ 12 UNITS/KG/HR 6.26 mls/hr IV .Q24H [facility] Rx#: [id number] Oral 238 180 Output: Urine 125 Other: # Voids 1 0 # Bowel Movements 1 - Exam PHYSICAL EXAMINATION: HEENT: Head is atraumatic, normocephalic. Pupils equal, round. Neck is supple. There is no elevated jugular venous pressure. HEART EXAMINATION: Heart sounds regular, S1 and S2 with a holosystolic murmur at the apex. CHEST EXAMINATION: Lungs are clear to auscultation and precussion. No chest wall tenderness is noted on palpation or with deep breathing. ABDOMEN: Soft, nontender. Bowel sounds are heard. No organomegaly noted. EXTREMITIES: 2+ peripheral pulses with no evidence of peripheral edema and no calf tenderness noted. NEUROLOGIC patient is awake, alert and oriented x3. . - Labs CBC & Chem 7: 05/21/21 05:21 05/21/21 05:21 Labs: Abnormal Lab Results - Last 24 Hours (Table) 05/21/21 05/21/21 Range/Units 05:21 05:21 WBC 12.1 H (3.8-10.6) k/uL RBC 3.66 L (3.80-5.40) m/uL Hgb 11.1 L (11.4-16.0) gm/dL Hct 33.5 L (34.0-46.0) % Neutrophils # 8.6 H (1.3-7.7) k/uL Sodium 132 L (137-145) mmol/L Calcium 8.2 L (8.4-10.2) mg/dL Microbiology - Last 24 Hours (Table) 05/19/21 20:47 Blood Culture - Preliminary Blood No Growth after 24 hours 05/19/21 10:54 Blood Culture - Preliminary Blood No Growth after 24 hours Assessment and Plan Assessment: #1 febrile episode with psychosis, workup in progress, patient on empiric antibiotics #2 AV t[place] reentry tachycardia, in sinus mechanism unclear patient has a history of this in the past #3 mild troponin elevation related to tachycardia and febrile episode #4 dehydration, improved #5 history of chronic tobacco use #6 hypertension #7 hyperlipidemia Plan: From security auditor perspective the patient's blood pressure is elevated we will add an ANGELA inhibitor. Preliminary report on the certified performance technologist of the echocardiogram was reported as low normal LV systolic function with an ejection fraction of 50-55% and severe MR. The final report from Dr. Contreras, the reading security auditor is pending. From our standpoint the patient is stable for discharge home. She will follow-up as an outpatient with her primary security auditor. RETAIL PROPERTY MANAGER note has been reviewed, I agree with a documented findings and plan of care. Patient was seen and examined.
[2021-05-21 13:30] VITALS: BP 148/70; PULSE 70; TEMP 97.6
--- NOTE | 2021-05-21 13:32 | ECHOF ---
Referral Reason:svt MEASUREMENTS -------- HEIGHT: 165.1 cm WEIGHT: 55.3 kg BP: RVIDd: 2.3 cm (< 3.3) IVSd: 1.2 cm (0.6 - 1.1) LVIDd: 3.2 cm (3.9 - 5.3) LVPWd: 1.2 cm (0.6 - 1.1) IVSs: 1.6 cm LVIDs: 2.5 cm LVPWs: 1.9 cm LAESV Index (A-L): 24.36 ml/m Ao Diam: 2.7 cm (2.0 - 3.7) AV Cusp: 1.1 cm (1.5 - 2.6) LA Diam: 2.2 cm (2.7 - 3.8) MV EXCURSION: 12.755 mm (> 18.000) MV EF SLOPE: 64 mm/s (70 - 150) EPSS: 1.3 cm MV E Nir: 0.96 m/s MV DecT: 204 ms MV A Nir: 0.81 m/s MV E/A Ratio: 1.18 RAP: 15.00 mmHg RVSP: 31.87 mmHg FINDINGS -------- This was a technically good study. The left ventricular size is normal. There is mild concentric left ventricular hypertrophy. Overa ll left ventricular systolic function is low-normal with, an EF between 50 - 55 %. Normal LAP Grade 1 Diastolic Dysfunction. The right ventricle is normal in size. The left atrial size is normal. Normal LA size by volume 22+/-6 ml/m2. The right atrial size is normal. Aortic valve is trileaflet and is mildly thickened. There is mild aortic valve sclerosis. The mitral valve is normal. The mitral valve leaflets are mildly thickened. Uvvyxwvx-dj-aemyvr mi tral regurgitation is present. The tricuspid valve appears structurally normal. Mild tricuspid regurgitation present. Right vent ricular systolic pressure is normal at < 35 mmHg. Trace/mild (physiologic) pulmonic regurgitation. The aortic root size is normal. The inferior vena cava is mildly dilated. There is no pericardial effusion. CONCLUSIONS -------- 1. The left ventricular size is normal. 2. There is mild concentric left ventricular hypertrophy. 3. Overall left ventricular systolic function is low-normal with, an EF between 50 - 55 %. 4. Normal LAP Grade 1 Diastolic Dysfunction. 5. Aortic valve is trileaflet and is mildly thickened. 6. There is mild aortic valve sclerosis. 7. The mitral valve leaflets are mildly thickened. 8. Lmxvgztu-wa-ongxpi mitral regurgitation is present. 9. Mild tricuspid regurgitation present. 10. Trace/mild (physiologic) pulmonic regurgitation. 11. The inferior vena cava is mildly dilated. 12. There is no pericardial effusion. MANAGER SUMMER: Meeta Rosa RDCS
--- NOTE | 2021-05-21 14:18 | P.PN ---
Subjective Progress Note Date: 05/21/21 Principal diagnosis: confusion, fever Discharge Diagnosis: SVT Tracheobronchitis with sepsis Type II non-STEMI secondary to demand ischemia from SVT Acute kidney injury Hyponatremia Hypokalemia Hospital Course: Patient is an 80-year-old female with a past medical history of hypertension, dyslipidemia, and recurrent urinary tract infection who presented to the ER with confusion and fever. She was found to have SVT in the emergency department which converted with 6 mg of adenosine 1. She was also found to have an elevated white count, fever, and was subsequently started on empiric antibiotics and fluids for possible sepsis. Her troponin was slightly elevated which was thought to be due to demand ischemia from SVT. She was admitted for further monitoring. Initial chest x-ray showed no acute process. Initial COVID testing was negative. Urinalysis also came back unremarkable. Patient was continued on empiric antibiotics that she continued to have an elevated white blood cell count. COVID PCR was sent. She was evaluated by cardiology and underwent echocardiogram which showed a preserved ejection fraction, grade 1 diastolic dysfunction, and moderate to severe mitral regurgitation. She continued to be in normal sinus rhythm. She remained afebrile. She was determined to have s uspected tracheobronchitis as her chest x-ray remained negative. She is determined stable for discharge home. Follow-up: Dr. Frederick next week, Dr. Lin her primary chuck boner in 2-4 weeks (patient already has an appointment), cefdinir for an additional 3 days. Patient seen and examined at bedside. Having a slight cough and sore throat. No shortness of breath. No chest discomfort. Vital signs reviewed and stable. General: non toxic, no distress, appears at stated age Derm: warm, dry Head: atraumatic, normocephalic, symmetric Eyes: EOMI, no lid lag, anicteric sclera Mouth: no lip lesion, mucus membranes moist Cardiovascular: S1S2 reg with grade 2 murmur, positive posterior tibial pulse bilateral, Lungs: CTA bilateral, no rhonchi, no rales , no accessory muscle use Abdominal: soft, nontender to palpation, no guarding, no appreciable organomegaly Ext: no gross muscle atrophy, no edema, no contractures Neuro: CN II-XI grossly intact, no focal neuro deficits Psych: Alert, oriented, appropriate affect A total of 35 minutes of time were spent preparing this complex discharge summary . Objective - Vital Signs Vital signs: Vital Signs Temp 97.6 F 05/21/21 12:00 Pulse 70 05/21/21 12:00 Resp 16 05/21/21 12:00 BP 148/70 05/21/21 12:00 Pulse Ox 98 05/21/21 12:00 Intake & Output 05/20/21 05/21/21 05/21/21 18:59 06:59 18:59 Intake Total 296.218 480 Output Total 125 Balance 296.218 355 Weight 55.7 kg Intake: IV 40 Invasive Line 2 20 Invasive Line 3 20 Intake, IV Titration 58.218 Amount Heparin Sod,Pork in 0.45% 58.218 NaCl 25,000 unit In 0.45 % NaCl 1 250ml.bag @ 12 UNITS/KG/HR 6.26 mls/hr IV .Q24H [facility] Rx#: [id number] Oral 238 440 Output: Urine 125 Other: # Voids 1 0 # Bowel Movements 1 - Labs CBC & Chem 7: 05/21/21 05:21 05/21/21 05:21 Labs: Abnormal Lab Results - Last 24 Hours (Table) 05/21/21 05/21/21 Range/Units 05:21 05:21 WBC 12.1 H (3.8-10.6) k/uL RBC 3.66 L (3.80-5.40) m/uL Hgb 11.1 L (11.4-16.0) gm/dL Hct 33.5 L (34.0-46.0) % Neutrophils # 8.6 H (1.3-7.7) k/uL Sodium 132 L (137-145) mmol/L Calcium 8.2 L (8.4-10.2) mg/dL Microbiology - Last 24 Hours (Table) 05/19/21 20:47 Blood Culture - Preliminary Blood No Growth after 24 hours 05/19/21 10:54 Blood Culture - Preliminary Blood No Growth after 24 hours
--- NOTE | 2021-05-21 17:05 | P.DS ---
Providers Date of admission: 05/19/21 21:06 Expected date of discharge: 05/21/21 Attending physician: Amy Valdez MD Consults: 05/19/21 21:06 Consult Physician Routine Consulting Provider: Tremaine Contreras Consult Reason/Comments: svt, elevated troponin Do you want consulting provider notified?: Already Contacted 05/20/21 00:19 Consult Physician Routine Consulting Provider: Daniel Vernon Consult Reason/Comments: frequent UTI, trouble urinating Do you want consulting provider notified?: Yes, Notify in am Primary care physician: Ama Frederick [facility] Course: Discharge Diagnosis: SVT Tracheobronchitis with sepsis Type II non-STEMI secondary to demand ischemia from SVT Acute kidney injury Hyponatremia Hypokalemia Toxic metabolic encaphalopthy Hospital Course: Patient is an 80-year-old female with a past medical history of hypertension, dyslipidemia, and recurrent urinary tract infection who presented to the ER with confusion and fever. She was found to have SVT in the emergency department which converted with 6 mg of adenosine 1. She was also found to have an elevated white count, fever, and was subsequently started on empiric antibiotics and fluids for possible sepsis. Her troponin was slightly elevated which was thought to be due to demand ischemia from SVT. She was admitted for further monitoring. Initial chest x-ray showed no acute process. Initial COVID testing was negative. Urinalysis also came back unremarkable. Patient was continued on empiric antibiotics that she continued to have an elevated white blood cell count. COVID PCR was sent. She was evaluated by cardiology and underwent echocardiogram which showed a preserved ejection fraction, grade 1 diastolic dysfunction, and moderate to severe mitral regurgitation. She continued to be in normal sinus rhythm. She remained afebrile. She was determined to have suspected tracheobronchitis as her chest x-ray remained negative. She is determined stable for discharge home. Follow-up: Dr. Frederick next week, Dr. Lin her primary rn vascular in 2-4 weeks (patient already has an appointment), cefdinir for an additional 3 days. Patient seen and examined at bedside. Having a slight cough and sore throat. No shortness of breath. No chest discomfort. Vital signs reviewed and stable. General: non toxic, no distress, appears at stated age Derm: warm, dry Head: atraumatic, normocephalic, symmetric Eyes: EOMI, no lid lag, anicteric sclera Mouth: no lip lesion, mucus membranes moist Cardiovascular: S1S2 reg with grade 2 murmur, positive posterior tibial pulse bilateral, Lungs: CTA bilateral, no rhonchi, no rales , no accessory muscle use Abdominal: soft, nontender to palpation, no guarding, no appreciable organomegaly Ext: no gross muscle atrophy, no edema, no contractures Neuro: CN II-XI grossly intact, no focal neuro deficits Psych: Alert, oriented, appropriate affect A total of 35 minutes of time were spent preparing this complex discharge summary . Patient Condition at Discharge: Stable Plan - Discharge Summary New Discharge Prescriptions: No Action Multivitamins, Thera [Multivitamin (formulary)] 1 tab PO DAILY Aspirin [Adult Low Dose Aspirin EC] 81 mg PO DAILY Fluticasone Nasal Purchase [Flonase Nasal Purchase] 1 spray EA NOSTRIL BID Atorvastatin [Lipitor] 20 mg PO DAILY Ascorbic Acid [Vitamin C] 1,000 mg PO BID Pantoprazole Sodium [Protonix] 20 mg PO DAILY Turmeric Root Extract [Turmeric] 500 mg PO BID Glycopyrrolate [Robinul Forte] 2 mg PO BID Escitalopram [Lexapro] 20 mg PO DAILY Lactulose 20 gm PO DAILY HYDROcodone/APAP 10-325MG [[place] 10] 1 tab PO Q8H PRN PRN Reason: Pain Fiber 500mg 500 mg PO BID Zolpidem [Ambien] 5 mg PO HS PRN PRN Reason: Insomnia Gabapentin [Neurontin] 300 mg PO BID Cyclobenzaprine [Flexeril] 10 mg PO BID Discharge Medication List Aspirin [Adult Low Dose Aspirin EC] 81 mg PO DAILY 08/22/16 [History] Multivitamins, Thera [Multivitamin (formulary)] 1 tab PO DAILY 08/22/16 [History] Ascorbic Acid [Vitamin C] 1,000 mg PO BID 12/22/20 [History] Atorvastatin [Lipitor] 20 mg PO DAILY 12/22/20 [History] Fluticasone Nasal Purchase [Flonase Nasal Purchase] 1 spray EA NOSTRIL BID 12/22/20 [History] Gabapentin [Neurontin] 300 mg PO BID 01/02/21 [History] Pantoprazole Sodium [Protonix] 20 mg PO DAILY 01/02/21 [History] Zolpidem [Ambien] 5 mg PO HS PRN 01/02/21 [History] Cyclobenzaprine [Flexeril] 10 mg PO BID 05/19/21 [History] Escitalopram [Lexapro] 20 mg PO DAILY 05/19/21 [History] Fiber 500mg 500 mg PO BID 05/19/21 [History] Glycopyrrolate [Robinul Forte] 2 mg PO BID 05/19/21 [History] HYDROcodone/APAP 10-325MG [[place] 10] 1 tab PO Q8H PRN 05/19/21 [History] Lactulose 20 gm PO DAILY 05/19/21 [History] Turmeric Root Extract [Turmeric] 500 mg PO BID 05/19/21 [History] Follow up Appointment(s)/Referral(s): Ama Frederick MD [Primary Care Provider] - 1-2 days (Office closed. Please call to make appt.) [facility], [NON-STAFF] - Patient Instructions/Handouts: Supraventricular Tachycardia (ED), Dehydration (ED), Hyponatremia (ED), Hypokalemia (ED) Activity/Diet/Wound Care/Special Instructions: Activity: as tolerated Diet: Heart Healthy Special Instructions: Follow-up with Dr Lin as scheduled Discharge Disposition: HOME SELF-CARE
== END 2021-05-21 18:15 | disposition home health service (06) | DRG 871 ==
LOC: EC 18:26 → 3SCARD 21:06
PROVIDERS: ADMIT Internal Medicine; ATTEND Internal Medicine
DX: A41.9 Sepsis, unspecified organism (principal); I21.A1 Myocardial infarction type 2; G92 Toxic encephalopathy; G93.41 Metabolic encephalopathy; I47.1 Supraventricular tachycardia; E87.1 Hypo-osmolality and hyponatremia; N17.9 Acute kidney failure, unspecified; E78.5 Hyperlipidemia, unspecified; M19.90 Unspecified osteoarthritis, unspecified site; M25.552 Pain in left hip; M25.551 Pain in right hip; Z79.82 Long term (current) use of aspirin; Z87.440 Personal history of urinary (tract) infections; E86.0 Dehydration; Z20.822 Contact with and (suspected) exposure to COVID-19; K21.9 Gastro-esophageal reflux disease without esophagitis; Z98.1 Arthrodesis status; F17.210 Nicotine dependence, cigarettes, uncomplicated; I10 Essential (primary) hypertension; N30.21 Other chronic cystitis with hematuria; J40 Bronchitis, not specified as acute or chronic; E87.6 Hypokalemia; I34.0 Nonrheumatic mitral (valve) insufficiency; F41.9 Anxiety disorder, unspecified; Z79.899 Other long term (current) drug therapy
CPT/HCPCS: 36415; 71045; 71046; 80048; 80053; 81003; 83605; 83735; 84484; 85025; 85379; 85610; 85730; 87040; 87635; 93005; 93306; 96361; 96374; 96375; 99291

== ENCOUNTER 2023-10-11 19:41 | Inpatient (IN) | payer MEDICARE, OTHER ==
[2023-10-11] MEDS ORDERED: SODIUM CHLORIDE 0.9% 1,000 ML IV ONE (20:30)
[2023-10-11] MEDS ORDERED: SODIUM CHLORIDE 0.9% 500 ML 500 ML IV ONE (20:30)
[2023-10-11 20:44] LABS: Glucose,Whole Blood 118 mg/dL (70-110)
--- NOTE | 2023-10-11 20:55 | ED ---
Altered Mental Status HPI - General Chief Complaint: Altered Mental Status Stated Complaint: UTI Time Seen by Provider: 10/11/23 19:55 Source: family Mode of arrival: wheelchair Limitations: altered mental status, physical limitation - History of Present Illness Initial Comments: 83-year-old female with past history of hyperlipidemia who presents to emergency department with altered mental status. Daughter states that she has been more confused and weak over the past couple of days. She has had symptoms of an upper respiratory infection. Daughter tested her yesterday and she was cold and positive. She has been able to eat and drink a little. No vomiting. No diarrhea. Patient denies any chest pain. She has had 2 falls last night. Daughter states that it was after she gave her her Ambien. Both falls were unwitnessed. The patient reports that she did hit her head. Remainder of HPI is limited because of patient's current mental status - Related Data Home Medications Medication Instructions Recorded Confirmed Aspirin [Adult Low Dose Aspirin EC] 81 mg PO DAILY 08/22/16 10/11/23 Atorvastatin [Lipitor] 20 mg PO HS 12/22/20 10/11/23 Gabapentin [Neurontin] 300 mg PO BID 01/02/21 10/11/23 Pantoprazole Sodium [Protonix] 20 mg PO DIRECTED 01/02/21 10/11/23 Zolpidem [Ambien] 5 mg PO HS PRN 01/02/21 10/11/23 Cyclobenzaprine [Flexeril] 10 mg PO DIRECTED PRN 05/19/21 10/11/23 Glycopyrrolate [Robinul Forte] 2 mg PO TID 05/19/21 10/11/23 HYDROcodone/APAP 10-325MG [[place] 1 tab PO Q8H PRN 05/19/21 10/11/23 10-325] Cranberry Conc/C/Bacill Coag 1 tab PO DAILY 10/11/23 10/11/23 [Cranberry Urinary 250-30-3.5MG] Escitalopram [Lexapro] 5 mg PO HS 10/11/23 10/11/23 Metoprolol Succinate (ER) [Toprol 25 mg PO DIRECTED 10/11/23 10/11/23 Xl] Vitamin C(Unknown Dose) 1 tab PO DAILY 10/11/23 10/11/23 lisinopriL [Zestril] 10 mg PO DAILY 10/11/23 10/11/23 Allergies Allergy/AdvReac Type Severity Reaction Status Date / Time baclofen Allergy Unknown Verified 10/11/23 22:09 latex Allergy Swelling Verified 10/11/23 22:09 Penicillins Allergy Nausea & Verified 10/11/23 22:09 Vomiting quinine AdvReac Rapid Verified 10/11/23 22:09 Heart Rate Review of Systems ROS Statement: Those systems with pertinent positive or pertinent negative responses have been documented in the HPI. ROS Other: All systems not noted in ROS Statement are negative. Past Medical History Past Medical History: Hyperlipidemia, Osteoarthritis (OA) Additional Past Medical History / Comment(s): HX SPINAL STENOSIS/OSTEOARTHRITIS. Cervical myelopathy with upper extremity weakness status post anterior cervic al decompression and fusion on 12/23/2020. Recurrent urinary tract infections History of Any Multi-Drug Resistant Organisms: None Reported Past Surgical History: Back Surgery Additional Past Surgical History / Comment(s): HX HAND NEUROMA LEFT FOOT/ BILAT CATARACTS REMOVED AND GLAUCOMA, neck surgery Past Anesthesia/Blood Transfusion Reactions: No Reported Reaction Past Psychological History: Anxiety Smoking Status: Current every day smoker Past Alcohol Use History: None Reported Past Drug Use History: None Reported - Past Family History Mother Family Medical History: Dementia Additional Family Medical History / Comment(s): AGE 97 OF NATURAL CAUSES Brother(s) Family Medical History: Cancer Additional Family Medical History / Comment(s): HX ASBESTOS Sister(s) Family Medical History: CVA/TIA Daughter(s) Additional Family Medical History / Comment(s): ANXIETY/SCOLIOSIS Son(s) Additional Family Medical History / Comment(s): HX HEMOCHROMATOSIS General Exam Limitations: altered mental status, physical limitation General appearance: in no apparent distress, lethargic, cachectic Head exam: Present: atraumatic, normocephalic, normal inspection Eye exam: Present: normal appearance, PERRL, EOMI. Absent: scleral icterus, conjunctival injection, periorbital swelling ENT exam: Present: mucous membranes dry Neck exam: Present: normal inspection. Absent: tenderness, meningismus, lymphadenopathy Respiratory exam: Present: normal lung sounds bilaterally. Absent: respiratory distress, wheezes, rales, rhonchi, stridor Cardiovascular Exam: Present: tachycardia GI/Abdominal exam: Present: soft, normal bowel sounds. Absent: distended, tenderness, guarding, rebound, rigid Course Vital Signs 10/11/23 10/11/23 10/11/23 19:50 20:24 21:00 Temperature 99.9 F H Pulse Rate 109 H 112 H 114 H Respiratory 14 18 24 Rate Blood Pressure 140/77 160/85 177/79 O2 Sat by Pulse 90 L 94 L 94 L Oximetry 10/11/23 10/12/23 22:29 00:12 Temperature 101.2 F H 99.1 F Pulse Rate Respiratory Rate Blood Pressure O2 Sat by Pulse Oximetry Medical Decision Making - Medical Decision Making Was pt. sent in by a medical professional or institution (, PA, MALE IMPERSONATOR, urgent care, hospital, or [facility]...) When possible be specific @ -No Did you speak to anyone other than the patient for history (EMS, parent, family, police, friend...)? What history was obtained from this source @ -daughter Did you review nursing and triage notes (agree or disagree)? Why? @ -I reviewed and agree with nursing and triage notes Were old charts reviewed (outside hosp., previous admission, EMS record, old EKG, old radiological studies, urgent care reports/EKG's, [facility]cc records)? Report findings @ -No old charts were reviewed Differential Diagnosis (chest pain, altered mental status, abdominal pain women, abdominal pain men, vaginal bleeding, weakness, fever, dyspnea, syncope, headache, dizziness, GI bleed, back pain, seizure, CVA, palpatations, mental health, musculoskeletal)? @ -Differential Altered Mental Status: Hypoglycemia, DKA, hypercapnia, ETOH, overdose, CO poisoning, trauma, myxedema coma, HTN encephalopathy, infection, encephalitis, psychosis, intercranial hemorrhage, hepatic encephalopathy, meningitis, CVA, this is not meant to be an all-inclusive list EKG interpreted by me (3pts min.). @ -Yes and demonstrates sinus tachycardia with a rate of 111. OH interval 167. QRS 74. QTC 381. No st segment elevation or depression X-rays interpreted by me (1pt min.). @ -yes and demonstrates possible pulmonary vascular congestion CT interpreted by me (1pt min.). @ -yes, no acute intracranial process U/S interpreted by me (1pt. min.). @ -None done What testing was considered but not performed or refused? (CT, X-rays, U/S, labs)? Why? @ -None What meds were considered but not given or refused? Why? @ -None Did you discuss the management of the patient with other professionals (professionals i.e. , PA, MALE IMPERSONATOR, lab, RT, psych nurse, dialysis social worker, [employer] stitcher, teacher, commercial credit officer, manager of case)? Give summary @ -dr. whiteside, admitting physician Was smoking cessation discussed for >3mins.? @ -No Was critical care preformed (if so, how long)? @ -No Were there social determinants of health that impacted care today? How? (Homelessness, low income, unemployed, alcoholism, drug addiction, transportation, low edu. Level, literacy, decrease access to med. care, mcc, rehab)? @ -No Was there de-escalation of care discussed even if they declined (Discuss DNR or withdrawal of care, Hospice)? DNR status @ -yes, patient remains full code What co-morbidities impacted this encounter? (DM, HTN, Smoking, COPD, CAD, Cancer, CVA, ARF, Chemo, Hep., AIDS, mental health diagnosis, sleep apnea, morbid obesity)? @ -None Was patient admitted / discharged? Hospital course, mention meds given and route, prescriptions, significant lab abnormalities, going to OR and other pertinent info. @ -Admitted. Upon arrival patient placed in room 11. Thorough history and physical exam was performed. IV access is established and patient start IV fluids. Laboratory studies are conducted. Chest x-ray was performed. Patient given Ofirm[employer] for her fever. CT negative. Patient will be admitted for her al tered mental status and covid positive status. Patient admitted to Dr. whiteside Undiagnosed new problem with uncertain prognosis? @ -No Drug Therapy requiring intensive monitoring for toxicity (Heparin, Nitro, Insulin, Cardizem)? @ -No Were any procedures done? @ -No Diagnosis/symptom? @ -Acute encephalopathy, acute Covid infection, multiple falls with blunt head trauma, leukocytosis Acute, or Chronic, or Acute on Chronic? @ -acute Uncomplicated (without systemic symptoms) or Complicated (systemic symptoms)? @ -complicated Side effects of treatment? @ -No Exacerbation, Progression, or Severe Exacerbation? @ -No Poses a threat to life or bodily function? How? (Chest pain, USA, DC, pneumonia, PE, COPD, DKA, ARF, appy, cholecystitis, CVA, Diverticulitis, Homicidal, Suicidal, threat to staff... and all critical care pts) @ -possible as patient has ams - Lab Data Result diagrams: 10/11/23 20:30 10/11/23 20:30 Lab Results 10/11/23 10/11/23 10/11/23 Range/Units 20:30 20:30 20:30 WBC 23.3 H (3.8-10.6) k/uL RBC 4.28 (3.80-5.40) m/uL Hgb 13.0 (11.4-16.0) gm/dL Hct 38.7 (34.0-46.0) % MCV 90.5 (80.0-100.0) fL MCH 30.3 (25.0-35.0) pg MCHC 33.5 (31.0-37.0) g/dL RDW 13.0 (11.5-15.5) % Plt Count 457 H (150-450) k/uL MPV 7.8 Neutrophils % 82 % Lymphocytes % 10 % Monocytes % 7 % Eosinophils % 0 % Basophils % 0 % Neutrophils # 19.1 H (1.3-7.7) k/uL Lymphocytes # 2.3 (1.0-4.8) k/uL Monocytes # 1.5 H (0-1.0) k/uL Eosinophils # 0.1 (0-0.7) k/uL Basophils # 0.1 (0-0.2) k/uL PT 10.4 (10.0-12.5) sec INR 0.9 (<1.2) APTT 29.6 (22.0-30.0) sec Sodium 137 (137-145) mmol/L Potassium 4.3 (3.5-5.1) mmol/L Chloride 99 (98-107) mmol/L Carbon Dioxide 26 (22-30) mmol/L Anion Gap 12 mmol/L BUN 19 H (7-17) mg/dL Creatinine 1.28 H (0.52-1.04) mg/dL Est GFR (CKD-EPI)AfAm 44 (>60 ml/min/1.73 sqM) Est GFR (CKD-EPI)NonAf 38 (>60 ml/min/1.73 sqM) Glucose 128 H (74-99) mg/dL POC Glucose (mg/dL) (70-110) mg/dL POC Glu Substation Inspector ID Calcium 9.6 (8.4-10.2) mg/dL Total Bilirubin 0.7 (0.2-1.3) mg/dL AST 23 (14-36) U/L ALT 14 (4-34) U/L Alkaline Phosphatase 118 (38-126) U/L Ammonia (<30) umol/L Troponin I (0.000-0.034) ng/mL Total Protein 6.8 (6.3-8.2) g/dL Albumin 3.9 (3.5-5.0) g/dL Urine Color Urine Appearance (Clear) Urine pH (5.0-8.0) Ur Specific [place] (1.001-1.035) Urine Protein (Negative) Urine Glucose (UA) (Negative) Urine Ketones (Negative) Urine Blood (Negative) Urine Nitrite (Negative) Urine Bilirubin (Negative) Urine Urobilinogen (<2.0) mg/dL Ur Leukocyte Esterase (Negative) Urine RBC (0-5) /hpf Urine WBC (0-5) /hpf Ur Squamous Epith Cells (0-4) /hpf Influenza Type A (PCR) (Not Detectd) Influenza Type B (PCR) (Not Detectd) RSV (PCR) (Not Detectd) SARS-CoV-2 (PCR) (Not Detectd) 10/11/23 10/11/23 10/11/23 Range/Units 20:30 20:30 20:32 WBC (3.8-10.6) k/uL RBC (3.80-5.40) m/uL Hgb (11.4-16.0) gm/dL Hct (34.0-46.0) % MCV (80.0-100.0) fL MCH (25.0-35.0) pg MCHC (31.0-37.0) g/dL RDW (11.5-15.5) % Plt Count (150-450) k/uL MPV Neutrophils % % Lymphocytes % % Monocytes % % Eosinophils % % Basophils % % Neutrophils # (1.3-7.7) k/uL Lymphocytes # (1.0-4.8) k/uL Monocytes # (0-1.0) k/uL Eosinophils # (0-0.7) k/uL Basophils # (0-0.2) k/uL PT (10.0-12.5) sec INR (<1.2) APTT (22.0-30.0) sec Sodium (137-145) mmol/L Potassium (3.5-5.1) mmol/L Chloride (98-107) mmol/L Carbon Dioxide (22-30) mmol/L Anion Gap mmol/L BUN (7-17) mg/dL Creatinine (0.52-1.04) mg/dL Est GFR (CKD-EPI)AfAm (>60 ml/min/1.73 sqM) Est GFR (CKD-EPI)NonAf (>60 ml/min/1.73 sqM) Glucose (74-99) mg/dL POC Glucose (mg/dL) (70-110) mg/dL POC Glu Substation Inspector ID Calcium (8.4-10.2) mg/dL Total Bilirubin (0.2-1.3) mg/dL AST (14-36) U/L ALT (4-34) U/L Alkaline Phosphatase (38-126) U/L Ammonia <9 (<30) umol/L Troponin I <0.012 (0.000-0.034) ng/mL Total Protein (6.3-8.2) g/dL Albumin (3.5-5.0) g/dL Urine Color Light Yellow Urine Appearance Clear (Clear) Urine pH 6.5 (5.0-8.0) Ur Specific [place] 1.013 (1.001-1.035) Urine Protein Trace H (Negative) Urine Glucose (UA) Negative (Negative) Urine Ketones Negative (Negative) Urine Blood Negative (Negative) Urine Nitrite Negative (Negative) Urine Bilirubin Negative (Negative) Urine Urobilinogen <2.0 (<2.0) mg/dL Ur Leukocyte Esterase Small H (Negative) Urine RBC <1 (0-5) /hpf Urine WBC 1 (0-5) /hpf Ur Squamous Epith Cells <1 (0-4) /hpf Influenza Type A (PCR) (Not Detectd) Influenza Type B (PCR) (Not Detectd) RSV (PCR) (Not Detectd) SARS-CoV-2 (PCR) (Not Detectd) 10/11/23 10/11/23 Range/Units 20:32 20:43 WBC (3.8-10.6) k/uL RBC (3.80-5.40) m/uL Hgb (11.4-16.0) gm/dL Hct (34.0-46.0) % MCV (80.0-100.0) fL MCH (25.0-35.0) pg MCHC (31.0-37.0) g/dL RDW (11.5-15.5) % Plt Count (150-450) k/uL MPV Neutrophils % % Lymphocytes % % Monocytes % % Eosinophils % % Basophils % % Neutrophils # (1.3-7.7) k/uL Lymphocytes # (1.0-4.8) k/uL Monocytes # (0-1.0) k/uL Eosinophils # (0-0.7) k/uL Basophils # (0-0.2) k/uL PT (10.0-12.5) sec INR (<1.2) APTT (22.0-30.0) sec Sodium (137-145) mmol/L Potassium (3.5-5.1) mmol/L Chloride (98-107) mmol/L Carbon Dioxide (22-30) mmol/L Anion Gap mmol/L BUN (7-17) mg/dL Creatinine (0.52-1.04) mg/dL Est GFR (CKD-EPI)AfAm (>60 ml/min/1.73 sqM) Est GFR (CKD-EPI)NonAf (>60 ml/min/1.73 sqM) Glucose (74-99) mg/dL POC Glucose (mg/dL) 118 H (70-110) mg/dL POC Glu Substation Inspector ID Nancy Harrell Calcium (8.4-10.2) mg/dL Total Bilirubin (0.2-1.3) mg/dL AST (14-36) U/L ALT (4-34) U/L Alkaline Phosphatase (38-126) U/L Ammonia (<30) umol/L Troponin I (0.000-0.034) ng/mL Total Protein (6.3-8.2) g/dL Albumin (3.5-5.0) g/dL Urine Color Urine Appearance (Clear) Urine pH (5.0-8.0) Ur Specific [place] (1.001-1.035) Urine Protein (Negative) Urine Glucose (UA) (Negative) Urine Ketones (Negative) Urine Blood (Negative) Urine Nitrite (Negative) Urine Bilirubin (Negative) Urine Urobilinogen (<2.0) mg/dL Ur Leukocyte Esterase (Negative) Urine RBC (0-5) /hpf Urine WBC (0-5) /hpf Ur Squamous Epith Cells (0-4) /hpf Influenza Type A (PCR) Not Detected (Not Detectd) Influenza Type B (PCR) Not Detected (Not Detectd) RSV (PCR) Not Detected (Not Detectd) SARS-CoV-2 (PCR) Detected A (Not Detectd) Disposition Clinical Impression: Leukocytosis, COVID-19, Encephalopathy acute, Tachycardia, Dehydration Disposition: ADMITTED IP TO THIS HOSP Condition: Serious Is patient prescribed a controlled substance at d/c from ED?: No Time of Disposition: 22:25 Decision to Admit Reason: Admit from EC Decision Date: 10/11/23 Decision Time: 22:25
[2023-10-11 21:02] LABS: Basophils # (A) 0.1 k/uL (0-0.2); Basophils % (A) 0 %; Eosinophils # (A) 0.1 k/uL (0-0.7); Eosinophils % (A) 0 %; HCT 38.7 % (34.0-46.0); Lymphocytes # (A) 2.3 k/uL (1.0-4.8); Lymphocytes % (A) 10 %; MCH 30.3 pg (25.0-35.0); MCHC 33.5 g/dL (31.0-37.0); MCV 90.5 fL (80.0-100.0); Mean Platelet Volume 7.8; Monocytes # (A) 1.5 k/uL (0-1.0); Monocytes % (A) 7 %; Neutrophils # (A) 19.1 k/uL (1.3-7.7); Neutrophils % (A) 82 %; Platelet Count 457 k/uL (150-450); RBC 4.28 m/uL (3.80-5.40); WBC 23.3 k/uL (3.8-10.6)
[2023-10-11 21:06] LABS: ALT 14 U/L (4-34); AST 23 U/L (14-36); African American GFR (CKD) 44 (>60 ml/min/1.73 sqM); Albumin 3.9 g/dL (3.5-5.0); Alkaline Phosphatase 118 U/L (38-126); Anion Gap 12 mmol/L; Blood Urea Nitrogen 19 mg/dL (7-17); Calcium 9.6 mg/dL (8.4-10.2); Carbon Dioxide 26 mmol/L (22-30); Chloride 99 mmol/L (98-107); Glucose 128 mg/dL (74-99); Non-African American GFR(CKD) 38 (>60 ml/min/1.73 sqM); Potassium 4.3 mmol/L (3.5-5.1); Sodium 137 mmol/L (137-145); Total Bilirubin 0.7 mg/dL (0.2-1.3); Total Protein 6.8 g/dL (6.3-8.2)
[2023-10-11 21:13] LABS: INR 0.9 (<1.2); Partial Thromboplastin Time 29.6 sec (22.0-30.0); Prothrombin Time 10.4 sec (10.0-12.5)
--- NOTE | 2023-10-11 21:54 | CT ---
EXAMINATION TYPE: CT brain cspine wo con CT DLP: 1239.1 mGycm, Automated exposure control for dose reduction was used. DATE OF EXAM: 10/11/2023 9:42 PM COMPARISON: None. CLINICAL INDICATION:Female, 83 years old with history of heaed injury, confusion; ams, fall, confusio n TECHNIQUE: Brain: Multiple axial CT images of the brain were obtained without IV contrast. Cspine: Axial CT images from the skull base to the inferior aspect of T2 we obtained without intraven ous contrast. Coronal and sagittal reformatted images were also reviewed. FINDINGS: Brain: Extra-axial spaces: No abnormal extra-axial fluid collections. Ventricular system: Within normal limits Cerebral parenchyma: Cerebral atrophy. No acute intraparenchymal hemorrhage or mass effect. The fournier -white junction is well differentiated. Scattered hypoattenuating areas are seen within the white mat ter. Cerebellum: Unremarkable. Mass effect: No evidence of midline shift. Intracranial vasculature: Atherosclerotic calcifications of the intracranial vessels. Soft tissues: Normal. Calvarium/osseous structures: No depressed skull fracture. Paranasal sinuses and mastoid air cells: Mild scattered mucosal thickening and or secretions. Visualized orbits: Bilateral aphakia Cervical spine: Fracture: None. Osseous structures: Postsurgical changes from anterior posterior fusion spanning the C3-C5 levels Vertebral alignment: Reversal of the normal cervical lordotic curve. Spinal canal/Neural Foramina: No evidence of significant spinal canal narrowing. Neck soft tissues: Prevertebral soft tissues are within normal limits. Other: The airway is patent. The lung apices are clear. IMPRESSION: CT Brain: 1. No acute intracranial process. CT cervical spine: 1. No evidence of cervical spine fracture. 2. Moderate multilevel degenerative disc disease and extensive postsurgical changes.
[2023-10-11] MEDS ORDERED: NALOXONE 0.4 MG/ML 1 ML VIAL IV PRN (22:32)
[2023-10-11 22:43] LABS: Appearance,Urine Clear (Clear); Bilirubin,Urine Negative (Negative); Blood,Urine Negative (Negative); Color,Urine Light Yellow; Glucose,Urine (UA) Negative (Negative); Ketones,Urine Negative (Negative); Leukocyte Esterase,Urine Small (Negative); Nitrite,Urine Negative (Negative); PH, Urine 6.5 (5.0-8.0); Protein,Urine Trace (Negative); RBC,Urine <1 /hpf (0-5); Specific Gravity,Urine 1.013 (1.001-1.035); Squamous Epithelial Cell,Urine <1 /hpf (0-4); Urobilinogen,Urine <2.0 mg/dL (<2.0); WBC,Urine 1 /hpf (0-5)
[2023-10-11] MEDS ORDERED: ACETAMINOPHEN IV (For NPO) 1,000 MG in EMPTY BAG 1 BAG IVPB ONE (22:45)
[2023-10-11] MEDS: SODIUM CHLORIDE 0.9% 1,000 ML IV SCH (22:56)
--- NOTE | 2023-10-11 23:14 | XR ---
EXAM: XR Chest, 1 View CLINICAL HISTORY: ITS.REASON XR Reason: altered mental status TECHNIQUE: Frontal view of the chest. COMPARISON: CXR May 21, 2021. FINDINGS: Lungs: Mild pulmonary vascular congestion. Pleural space: Unremarkable. No pneumothorax. Heart: Cardiomegaly. Calcified aorta. Mediastinum: Unremarkable. Normal mediastinal contour. Bones/joints: Unremarkable. No acute fracture. Tubes, lines and devices: Spinal cord stimulator leads. Other findings: ACDF. IMPRESSION: Mild pulmonary vascular congestion.
[2023-10-12] MEDS ORDERED: IBUPROFEN 400 MG TAB PO PRN
[2023-10-12] MEDS ORDERED: ACETAMINOPHEN TAB 325 MG TAB PO PRN
[2023-10-12] MEDS ORDERED: VANCOMYCIN IV PER PHARMACY 1 EACH MISC MISCELLANE PRN (01:14)
[2023-10-12] MEDS: ATORVASTATIN 20 MG TAB PO SCH ×2 (01:15→22:06)
--- NOTE | 2023-10-12 01:16 | P.HPIM ---
History of Present Illness H&P Date: 10/11/23 Patient is a 83-year-old female with a PMH of chronic kidney disease, hypertension and hyperlipidemia who was brought to the emergency room by his daughter for confusion. The daughter notes the patient tested positive for COVID yesterday at home and has been falling, with 2 falls yesterday where she hit her head. They were concerned as she had been increasingly confused, which usually happens when she has a UTI. Daughter reports that she has been weak and confused for the past few days and has had a significantly decreased appetite. Minimal history was obtained from the patient as she was only oriented to self at the time of interview. Head and cervical spine CT in the emergency room was unremarkable. Chest x-ray revealed mild pulmonary vascular congestion. EKG revealed sinus tachycardia at [address]/T-wave changes are as reviewed by me. Laboratory evaluation revealed Coronavirus PCR positive, UA unremarkable, and WBC count 23.3 with platelet count 457. The patient had a T-max of 101.0F in the emergency room with an SpO2 of 90% on room air. ED documentation reviewed and case discussed with ED provider. Review of systems: Limited due to mental status Physical examination: Vital signs reviewed General: non toxic, no distress, appears at stated age, normal weight Derm: no unusual rashes/lesions, warm Head: atraumatic, normocephalic, symmetric Eyes: EOMI, no lid lag, anicteric sclera, pupils equal round reactive to light ENT: Nose and ears atraumatic Neck: No cervical lymphadenopathy, trachea midline, supple Mouth: no lip lesion, mucus membranes moist Cardiovascular: S1S2 reg, no murmur, positive dorsalis pedis pulse bilateral, no edema Lungs: CTA bilateral, no rhonchi, no rales, no accessory muscle use Abdominal: soft, nontender to palpation, no guarding Ext: muscle strength 4 out of 5 in all 4 extremities grossly, no gross muscle atrophy, no contractures, Neuro: CN II-XI grossly intact, no gross focal neuro deficits Psych: Patient oriented only to self but following most commands Assessment: Sepsis, suspect secondary to COVID pneumonia Acute hypoxic respiratory failure, likely secondary to above Altered mental status, suspect toxic encephalopathy in setting of sepsis, unable to rule out meningitis/encephalitis in setting of significant leukocytosis Thrombocytosis Chronic conditions: Chronic kidney disease, hypertension, hyperlipidemia Imaging: Head and cervical spine CT in the emergency room was unremarkable. Chest x-ray revealed mild pulmonary vascular congestion. EKG revealed sinus a cardiac [address]/T-wave changes are as reviewed by me. Data Review: Laboratory evaluation revealed Coronavirus PCR positive, UA unremarkable, and obesity count 23.3 with platelet count 457. The patient had a T-max of 101.0F in the emergency room with an SpO2 of 90% on room air. Plan: Start patient on Decadron 6 mg by mouth daily Give empiric antibiotics and antiviral medication for meningitis and encephalitis Neurology consult for consideration of LP Continue with IV fluids normal saline 75 mL/h Follow-up blood cultures Cardiac monitoring Fall precautions DVT prophylaxis: Lovenox subcu The patient is admitted with an anticipated greater than 2 midnight stay for evaluation of AMS CODE STATUS: Full Code Discussed with: Patient Anticipated discharge place: Home Past Medical History Past Medical History: Hyperlipidemia, Osteoarthritis (OA) Additional Past Medical History / Comment(s): HX SPINAL STENOSIS/OSTEOARTHRITIS. Cervical myelopathy with upper extremity weakness status post anterior cervical decompression and fusion on 12/23/2020. Recurrent urinary tract infections History of Any Multi-Drug Resistant Organisms: None Reported Past Surgical History: Back Surgery Additional Past Surgical History / Comment(s): HX HAND NEUROMA LEFT FOOT/ BILAT CATARACTS REMOVED AND GLAUCOMA, neck surgery Past Anesthesia/Blood Transfusion Reactions: No Reported Reaction Past Psychological History: Anxiety Smoking Status: Current every day smoker Past Alcohol Use History: None Reported Past Drug Use History: None Reported - Past Family History Mother Family Medical History: Dementia Additional Family Medical History / Comment(s): AGE 97 OF NATURAL CAUSES Brother(s) Family Medical History: Cancer Additional Family Medical History / Comment(s): HX ASBESTOS Sister(s) Family Medical History: CVA/TIA Daughter(s) Additional Family Medical History / Comment(s): ANXIETY/SCOLIOSIS Son(s) Additional Family Medical History / Comment(s): HX HEMOCHROMATOSIS Medications and Allergies Home Medications Medication Instructions Recorded Confirmed Type Aspirin [Adult Low Dose Aspirin EC] 81 mg PO DAILY 08/22/16 10/11/23 History Atorvastatin [Lipitor] 20 mg PO HS 12/22/20 10/11/23 History Gabapentin [Neurontin] 300 mg PO BID 01/02/21 10/11/23 History Pantoprazole Sodium [Protonix] 20 mg PO DIRECTED 01/02/21 10/11/23 History Zolpidem [Ambien] 5 mg PO HS PRN 01/02/21 10/11/23 History Cyclobenzaprine [Flexeril] 10 mg PO DIRECTED PRN 05/19/21 10/11/23 History Glycopyrrolate [Robinul Forte] 2 mg PO TID 05/19/21 10/11/23 History HYDROcodone/APAP 10-325MG [[place] 1 tab PO Q8H PRN 05/19/21 10/11/23 History 10-325] Cranberry Conc/C/Bacill Coag 1 tab PO DAILY 10/11/23 10/11/23 History [Cranberry Urinary 250-30-3.5MG] Escitalopram [Lexapro] 5 mg PO HS 10/11/23 10/11/23 History Metoprolol Succinate (ER) [Toprol 25 mg PO DIRECTED 10/11/23 10/11/23 History Xl] Vitamin C(Unknown Dose) 1 tab PO DAILY 10/11/23 10/11/23 History lisinopriL [Zestril] 10 mg PO DAILY 10/11/23 10/11/23 History Allergies Allergy/AdvReac Type Severity Reaction Status Date / Time baclofen Allergy Unknown Verified 10/11/23 22:09 latex Allergy Swelling Verified 10/11/23 22:09 Penicillins Allergy Nausea & Verified 10/11/23 22:09 Vomiting quinine AdvReac Rapid Verified 10/11/23 22:09 Heart Rate Physical Exam Vitals: Vital Signs Temp Pulse Resp BP Pulse Ox 10/12/23 00:12 99.1 F 10/12/23 00:00 116 H 163/104 93 L 10/11/23 23:00 161/121 93 L 10/11/23 22:29 101.2 F H 10/11/23 22:00 116 H 24 173/105 92 L 10/11/23 21:00 114 H 24 177/79 94 L 10/11/23 20:24 112 H 18 160/85 94 L 10/11/23 19:50 99.9 F H 109 H 14 140/77 90 L Intake and Output 10/11/23 10/11/23 10/12/23 14:59 22:59 06:59 Other: Weight 52.617 kg Results CBC & Chem 7: 10/11/23 20:30 10/11/23 20:30 Labs: Abnormal Lab Results - Last 24 Hours (Table) 10/11/23 10/11/23 10/11/23 Range/Units 20:30 20:30 20:32 WBC 23.3 H (3.8-10.6) k/uL Plt Count 457 H (150-450) k/uL Neutrophils # 19.1 H (1.3-7.7) k/uL Monocytes # 1.5 H (0-1.0) k/uL BUN 19 H (7-17) mg/dL Creatinine 1.28 H (0.52-1.04) mg/dL Glucose 128 H (74-99) mg/dL POC Glucose (mg/dL) (70-110) mg/dL Urine Protein Trace H (Negative) Ur Leukocyte Esterase Small H (Negative) SARS-CoV-2 (PCR) (Not Detectd) 10/11/23 10/11/23 Range/Units 20:32 20:43 WBC (3.8-10.6) k/uL Plt Count (150-450) k/uL Neutrophils # (1.3-7.7) k/uL Monocytes # (0-1.0) k/uL BUN (7-17) mg/dL Creatinine (0.52-1.04) mg/dL Glucose (74-99) mg/dL POC Glucose (mg/dL) 118 H (70-110) mg/dL Urine Protein (Negative) Ur Leukocyte Esterase (Negative) SARS-CoV-2 (PCR) Detected A (Not Detectd)
[2023-10-12] MEDS ORDERED: dexAMETHasone 4 MG TAB PO ONE (01:30)
[2023-10-12] MEDS ORDERED: VANCOMYCIN 1,000 MG in SODIUM CHLORIDE 0.9% 250 ML IVPB ONE (03:00)
[2023-10-12] MEDS: HYDROcodone/APAP 10-325MG 1 EACH TAB PO PRN (03:56)
[2023-10-12] MEDS: ACYCLOVIR SODIUM 500 MG in SODIUM CHLORIDE 0.9% 100 ML IVPB SCH ×3 (04:24→22:06)
[2023-10-12 07:55] LABS: Basophils % (A) 0 %; Eosinophils % (A) 0 %; HCT 35.5 % (34.0-46.0); HGB 11.8 gm/dL (11.4-16.0); Lymphocytes # (A) 1.2 k/uL (1.0-4.8); Lymphocytes % (A) 6 %; MCH 30.6 pg (25.0-35.0); MCHC 33.2 g/dL (31.0-37.0); Mean Platelet Volume 7.1; Monocytes # (A) 0.4 k/uL (0-1.0); Monocytes % (A) 2 %; Neutrophils # (A) 20.7 k/uL (1.3-7.7); Neutrophils % (A) 92 %; Platelet Count 453 k/uL (150-450); RBC 3.86 m/uL (3.80-5.40); RDW 13.1 % (11.5-15.5); WBC 22.4 k/uL (3.8-10.6)
[2023-10-12 08:27] LABS: African American GFR (CKD) 73 (>60 ml/min/1.73 sqM); Anion Gap 13 mmol/L; Blood Urea Nitrogen 15 mg/dL (7-17); Calcium 8.6 mg/dL (8.4-10.2); Carbon Dioxide 22 mmol/L (22-30); Chloride 105 mmol/L (98-107); Glucose 128 mg/dL (74-99); Non-African American GFR(CKD) 64 (>60 ml/min/1.73 sqM); Potassium 3.8 mmol/L (3.5-5.1); Sodium 140 mmol/L (137-145)
[2023-10-12] MEDS: METOPROLOL SUCCINATE (ER) 25 MG TAB.ER.24H PO SCH (08:33)
[2023-10-12] MEDS: ASPIRIN 81 MG PO SCH (08:33)
[2023-10-12] MEDS: PANTOPRAZOLE 40 MG TABLET PO SCH (08:33)
[2023-10-12] MEDS: lisinopriL 10 MG TAB PO SCH (08:33)
[2023-10-12] MEDS: dexAMETHasone 4 MG TAB PO SCH (08:33)
[2023-10-12] MEDS ORDERED: ENOXAPARIN 40 MG/0.4 ML SYRINGE SQ SCH (09:00)
--- NOTE | 2023-10-12 11:59 | P.PN ---
Subjective Progress Note Date: 10/12/23 Patient is a 83-year-old female with a PMH of chronic kidney disease, hypertension and hyperlipidemia who was brought to the emergency room by his daughter for confusion. The daughter notes the patient tested positive for COVID yesterday at home and has been falling, with 2 falls yesterday where she hit her head. They were concerned as she had been increasingly confused, which usually happens when she has a UTI. Daughter reports that she has been weak and confused for the past few days and has had a significantly decreased appetite. Minimal history was obtained from the patient as she was only oriented to self at the time of interview. Head and cervical spine CT in the emergency room was unremarkable. Chest x-ray revealed mild pulmonary vascular congestion. EKG revealed sinus tachycardia at [address]/T-wave changes are as reviewed by me. Laboratory evaluation revealed Coronavirus PCR positive, UA unremarkable, and WBC count 23.3 with platelet count 457. The patient had a T-max of 101.0F in the emergency room with an SpO2 of 90% on room air. Patient was started on Rocephin, Acyclovir and Vancomycin for concerns of meningitis or encephalitis and admitted for Neurology evaluation. 10/12 Patient was seen and examined. She is pleasantly confused. Thinks she is in [place]. Thinks its the 1919. Can recall who the president is. CBC WBC 22.4, Plt 451. BMP glu 128. Lactic acid 0.6. Vital signs reviewed General: non toxic, no distress, appears at stated age, normal weight Derm: no unusual rashes/lesions, warm Head: atraumatic, normocephalic, symmetric Eyes: EOMI, no lid lag, anicteric sclera ENT: Nose and ears atraumatic Neck: No cervical lymphadenopathy, trachea midline, supple Cardiovascular: S1S2 reg, no murmur Lungs: CTA bilateral, no rhonchi, no rales, no accessory muscle use Ext: muscle strength 4 out of 5 in all 4 extremities grossly, no gross muscle atrophy, no contractures, Neuro: no gross focal neuro deficits Psych: Alert, oriented x 1. Based on my assessment of this patient, this patient meets a high complexity level of care. Patient has an acute diagnosis of sepsis in the setting of COVID 19 that poses a threat to life or bodily function. Acute metabolic encephalopathy: Patient on multiple sedative medications including Flexeril, Gabapentin, [place] and Ambien at home. Doubtful for meningitis/encephalitis. Also hypoxic from COVID 19. Obtain TSH, B12, Folate. Fall precautions. Empirically started on Acyclovir, Vancomycin and Rocephin. N eurology consult. Sepsis related to COVID-19 pneumonia: Leukocytosis, tachycardia, positive source of infection. Decadron 6 mg PO QD. Antibiotics empirically as above. Obtain Blood culture and procalcitonin. Hypertensive urgency: Metoprolol 25 mg PO QD. Lisinopril 10 mg PO QD. Resolved: MARYANNE CODE STATUS: FULL CODE DVT Prophylaxis: Lovenox SQ GI Prophylaxis: Protonix Designated medical POA if patient is not able to make medical decisions for themselves: I have reviewed the following aerodynamic consultant notes: Neurology. I have reviewed the results of the following tests: CBC, BMP. I have ordered the following tests: B12, Folate, CBC, BMP. I have discussed the care of this patient with the following independent historian: I have independently interpreted the following test below: I have discussed the management of this patient with the following physician: Discussed with Dr. Rodriguez. This patient has a high risk of morbidity due to the following reasons: Patient requires IV vancomycin which requires intensive monitoring for renal function given underlying CKD. Objective - Vital Signs Vital signs: Vital Signs Temp 99.1 F 10/12/23 00:12 Pulse 118 H 10/12/23 06:00 Resp 18 10/12/23 06:00 BP 190/104 10/12/23 06:00 Pulse Ox 95 10/12/23 06:00 FiO2 Intake & Output 10/11/23 10/12/23 10/12/23 18:59 06:59 18:59 Weight 52.617 kg - Labs CBC & Chem 7: 10/12/23 07:34 10/12/23 07:34 Labs: Abnormal Lab Results - Last 24 Hours (Table) 10/11/23 10/11/23 10/11/23 Range/Units 20:30 20:30 20:32 WBC 23.3 H (3.8-10.6) k/uL Plt Count 457 H (150-450) k/uL Neutrophils # 19.1 H (1.3-7.7) k/uL Monocytes # 1.5 H (0-1.0) k/uL BUN 19 H (7-17) mg/dL Creatinine 1.28 H (0.52-1.04) mg/dL Glucose 128 H (74-99) mg/dL POC Glucose (mg/dL) (70-110) mg/dL Plasma Lactic Acid Alan (0.7-2.0) mmol/L Urine Protein Trace H (Negative) Ur Leukocyte Esterase Small H (Negative) SARS-CoV-2 (PCR) (Not Detectd) 10/11/23 10/11/23 10/12/23 Range/Units 20:32 20:43 07:34 WBC (3.8-10.6) k/uL Plt Count (150-450) k/uL Neutrophils # (1.3-7.7) k/uL Monocytes # (0-1.0) k/uL BUN (7-17) mg/dL Creatinine (0.52-1.04) mg/dL Glucose (74-99) mg/dL POC Glucose (mg/dL) 118 H (70-110) mg/dL Plasma Lactic Acid Alan 0.6 L (0.7-2.0) mmol/L Urine Protein (Negative) Ur Leukocyte Esterase (Negative) SARS-CoV-2 (PCR) Detected A (Not Detectd) 10/12/23 10/12/23 Range/Units 07:34 07:34 WBC 22.4 H (3.8-10.6) k/uL Plt Count 453 H (150-450) k/uL Neutrophils # 20.7 H (1.3-7.7) k/uL Monocytes # (0-1.0) k/uL BUN (7-17) mg/dL Creatinine (0.52-1.04) mg/dL Glucose 128 H (74-99) mg/dL POC Glucose (mg/dL) (70-110) mg/dL Plasma Lactic Acid Alan (0.7-2.0) mmol/L Urine Protein (Negative) Ur Leukocyte Esterase (Negative) SARS-CoV-2 (PCR) (Not Detectd)
[2023-10-12] MEDS: SODIUM CHLORIDE 0.9% 1,000 ML IV SCH (12:12)
--- NOTE | 2023-10-12 12:27 | P.PN ---
Progress Note - Text Progress Note Date: 10/12/23 Consult placed for LP for confusion. Patient was not seen, she is on Lovenox at 0834 today. Lovenox needs to be held for at least 12 hours, 24 hours for this patient given her Chronic Kidney Disease. If the procedure is still requested, please call the clinic tomorrow morning and we will come do the procedure sometime tomorrow. PLEASE DO NOT give any further lovenox if the procedure is requested. Or transition to Heparin and hold for at least 6 hours prior to procedure time. Hola Holly MD Anesthesia/Pain medicine.
--- NOTE | 2023-10-12 13:28 | P.CNNES ---
History of Present Illness Consult date: 10/12/23 Requesting physician: Juan Flor Reason for Consult: ams, ?meningitis History of Present Illness: This is a 83-year-old woman who presents with confusion. History is obtained from the patient's daughter's (Michelle). She has been having URI for the past 8 days. BUt had worsening confusion for the past two days and very lethargic with mumbling words. She was tested positive with COVID-19 about 2 days (home kit). Her great-granddaughter she had a cold prior to patient being sick. No nausea or vomiting. She had temperature checked and no fever. No seizure-like activity. No episodes of unresponsiveness but very severe drowsiness and having a tough time opening her eyes and the last 2 days. Patient did acknowledge that her great-granddaughter was sick prior to her being sick and the patient was having when he knows recently and felt warm. Per daughter, patient has history of A-fib and is on ASA. She has underlying hypertension that is labile. Some of the work-up during this hospital visit consisted of: Tmax of 101.2F oral. Is Tachycardic of 110's. Puls oxygen as low as 90% at room air. Blood pressure as high as 190/100-110's. wbc is 23.3K, platelete 450K and predominately neutrophilic. Plan B12 is 1760 TSH is 0.386 Ammonia is less than 9 Sodium, calcium within normal limits. Glucose is 128. SARS-COV-[address] head is reported as no acute intracranial process. I personally reviewed the CT of the head and I agree with the report. CT cervical spine is reported as no evidence of cervical spine fracture. Moderate multilevel degenerative disc disease and extensive postsurgical ch anges. Review of Systems Limited but the positive and negative as per HPI. Past Medical History Past Medical History: Hyperlipidemia, Osteoarthritis (OA) Additional Past Medical History / Comment(s): HX SPINAL STENOSIS/OSTEOARTHRITIS. Cervical myelopathy with upper extremity weakness status post anterior cervical decompression and fusion on 12/23/2020. Recurrent urinary tract infections History of Any Multi-Drug Resistant Organisms: None Reported Past Surgical History: Back Surgery Additional Past Surgical History / Comment(s): HX HAND NEUROMA LEFT FOOT/ BILAT CATARACTS REMOVED AND GLAUCOMA, neck surgery Past Anesthesia/Blood Transfusion Reactions: No Reported Reaction Past Psychological History: Anxiety Smoking Status: Current every day smoker Past Alcohol Use History: None Reported Past Drug Use History: None Reported - Past Family History Mother Family Medical History: Dementia Additional Family Medical History / Comment(s): AGE 97 OF NATURAL CAUSES Brother(s) Family Medical History: Cancer Additional Family Medical History / Comment(s): HX ASBESTOS Sister(s) Family Medical History: CVA/TIA Daughter(s) Additional Family Medical History / Comment(s): ANXIETY/SCOLIOSIS Son(s) Additional Family Medical History / Comment(s): HX HEMOCHROMATOSIS Medications and Allergies Home Medications Medication Instructions Recorded Confirmed Type Aspirin [Adult Low Dose Aspirin EC] 81 mg PO DAILY 08/22/16 10/11/23 History Atorvastatin [Lipitor] 20 mg PO HS 12/22/20 10/11/23 History Gabapentin [Neurontin] 300 mg PO BID 01/02/21 10/11/23 History Pantoprazole Sodium [Protonix] 20 mg PO DAILY 01/02/21 10/12/23 History Zolpidem [Ambien] 5 mg PO HS PRN 01/02/21 10/11/23 History Cyclobenzaprine [Flexeril] 10 mg PO TID PRN 05/19/21 10/12/23 History Glycopyrrolate [Robinul Forte] 2 mg PO TID 05/19/21 10/11/23 History HYDROcodone/APAP 10-325MG [[place] 1 tab PO Q8H PRN 05/19/21 10/11/23 History 10-325] Cranberry Conc/C/Bacill Coag 1 tab PO DAILY 10/11/23 10/11/23 History [Cranberry Urinary 250-30-3.5MG] Escitalopram [Lexapro] 5 mg PO HS 10/11/23 10/11/23 History Metoprolol Succinate (ER) [Toprol 25 mg PO DAILY 10/11/23 10/12/23 History Xl] Vitamin C(Unknown Dose) 1 tab PO DAILY 10/11/23 10/11/23 History lisinopriL [Zestril] 10 mg PO DAILY 10/11/23 10/11/23 History Allergies Allergy/AdvReac Type Severity Reaction Status Date / Time baclofen Allergy Unknown Verified 10/11/23 22:09 latex Allergy Swelling Verified 10/11/23 22:09 Penicillins Allergy Nausea & Verified 10/11/23 22:09 Vomiting quinine AdvReac Rapid Verified 10/11/23 22:09 Heart Rate Physical Examination - Vital Signs Vital Signs: Vital Signs Temp Pulse Resp BP Pulse Ox 10/12/23 09:00 107 H 18 161/89 90 L 10/12/23 08:00 98 18 154/90 93 L 10/12/23 06:00 118 H 18 190/104 95 10/12/23 05:00 111 H 16 198/96 97 10/12/23 04:00 103 H 16 181/110 95 10/12/23 03:00 107 H 12 157/116 95 10/12/23 02:00 112 H 18 152/91 93 L 10/12/23 01:00 117 H 14 158/110 94 L 10/12/23 00:23 112 H 11 L 158/110 92 L 10/12/23 00:12 99.1 F 10/12/23 00:00 116 H 163/104 93 L 10/11/23 23:00 161/121 93 L 10/11/23 22:29 101.2 F H 10/11/23 22:00 116 H 24 173/105 92 L 10/11/23 21:00 114 H 24 177/79 94 L 10/11/23 20:24 112 H 18 160/85 94 L 10/11/23 19:50 99.9 F H 109 H 14 140/77 90 L Intake and Output 10/11/23 10/12/23 10/12/23 22:59 06:59 14:59 Other: Weight 52.617 kg GENERAL: The patient is lying in bed and is not in acute distress. HENT: Supple neck. NEUROLOGICAL: Higher mental function: The patient is minimally drowsy. Is oriented to self and place. Patient is following simple commands. No aphasia and no neglect. Cranial nerves: The pupils are round, equal and reactive to light. Visual simon are full to confrontation throughout. Extraocular movement is intact no nystagmus is noted. Facial sensation is normal to touch throughout. The facial strength is normal throughout. Hearing is moderately decreased bilaterally to hand rub. Tongue is midline and moved [id number] without any difficulty. No dysarthria is noted. Shoulder shrug is normal bilaterally. Motor: The strength is limited in assessment but lifting all extremities above gravity throughout and no appreciable weakness. Normal tone and bulk. Cerebellum: Normal finger to nose bilaterally. Sensation: Sensation is normal to touch throughout. Reflexes (right/left): 1+ throughout. Plantars are downgoing bilaterally. Results - Laboratory Findings CBC and BMP: 10/12/23 07:34 10/12/23 07:34 Abnormal Lab Findings: Abnormal Labs 10/11/23 10/11/23 10/11/23 20:30 20:30 20:32 WBC 23.3 H Plt Count 457 H Neutrophils # 19.1 H Monocytes # 1.5 H BUN 19 H Creatinine 1.28 H Glucose 128 H POC Glucose (mg/dL) Plasma Lactic Acid Alan Vitamin B12 Urine Protein Trace H Ur Leukocyte Esterase Small H SARS-CoV-2 (PCR) 10/11/23 10/11/23 10/12/23 20:32 20:43 07:34 WBC Plt Count Neutrophils # Monocytes # BUN Creatinine Glucose POC Glucose (mg/dL) 118 H Plasma Lactic Acid Alan 0.6 L Vitamin B12 Urine Protein Ur Leukocyte Esterase SARS-CoV-2 (PCR) Detected A 10/12/23 10/12/23 10/12/23 07:34 07:34 07:34 WBC 22.4 H Plt Count 453 H Neutrophils # 20.7 H Monocytes # BUN Creatinine Glucose 128 H POC Glucose (mg/dL) Plasma Lactic Acid Alan Vitamin B12 1760.0 H Urine Protein Ur Leukocyte Esterase SARS-CoV-2 (PCR) Assessment and Plan Assessment: This is an 83-year-old woman with upper respiratory tract infection for the past 8 days. She was tested positive for COVID-19 about two days ago and for past two days has been more confused, lethargic. In our facility she had low grade fever, leukocytosis and hypoxic. 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 She has fever with leukocytosis. No nuchal rigidity and today confusion is somewhat better. Primary is concerned about possible meningoencephalitis which I doubt. Acute COVID-19 Hypertension and per daughter she has labile HTN Plan: I ordered a routine EEG as well as MRI the brain with and without to rule out any central cause. I consulted ID patient because of the patient's fever with confusion. We'll get the ID opinion regarding if they feel this is meningeal encephalitis versus underlying just. COVID-19. I consulted pain specialist for lumbar puncture but it seems that the patient cannot obtain lumbar puncture since the patient was started on Lovenox by primary team and these to be held for 12 hours. Spoke with the patient's daughter who stated that this patient and is improved by tomorrow she wants the lumbar puncture to be held if possible.S Primary team started the patient on acyclovir, ceftriaxone, vancomycin further suspicion of meningeal encephalitis. Defer the modification of the medication to the ID team We'll defer the rest of the medical management to primary team and other specialists I had a lengthy discussion with the patient's daughter (Michelle) via phone and her primary team. Thank you for the consultation Time with Patient: Greater than 30
--- NOTE | 2023-10-12 18:32 | P.CONS ---
History of Present Illness - Reason for Consult Consult date: 10/12/23 - History of Present Illness Patient is a 83-year-old female with a past medical history significant for hyperlipidemia osteoarthritis recurrent urinary tract infection patient was brought into the ER last night concerning for mental status changes apparently per daughter the patient has been more confused and weak over the last few days and the patient did have some URI symptoms for which the patient did have a COVID test done at home which came back positive with persistent symptom of weakness and apparently the patient did have a fall at home the patient was brought into the hospital on arrival to the ER patient did have a fever of 101.2 F patient was tachycardic but not hypotensive or hypoxic and no need for supplemental oxygen patient did have white count of 23.3 with a left shift BUN/creatinine was mildly elevated liver enzymes are normal urine has been negative patient tested positive for COVID chest x-ray mild pulmonary vascular congestion patient has been admitted to hospital apparently the daughter was concerned patient may have meningitis for which neurology has placed this consult LP could not be done today as the patient was on Lovenox. At the time my evaluation this afternoon the patient is afebrile patient is aware that she is at [facility] patient denies any headache to me no photophobia some nausea but no vomiting denies any chest pain or shortness with occasional cough no abdominal pain did not have any diarrhea Past Medical History Past Medical History: Hyperlipidemia, Osteoarthritis (OA) Additional Past Medical History / Comment(s): HX SPINAL STENOSIS/OSTEOARTHRITIS. Cervical myelopathy with upper extremity weakness status post anterior cervical decompression and fusion on 12/23/2020. Recurrent urinary tract infections History of Any Multi-Drug Resistant Organisms: None Reported Past Surgical History: Back Surgery Additional Past Surgical History / Comment(s): HX HAND NEUROMA LEFT FOOT/ BILAT CATARACTS REMOVED AND GLAUCOMA, neck surgery Past Anesthesia/Blood Transfusion Reactions: No Reported Reaction Past Psychological History: Anxiety Smoking Status: Current every day smoker Past Alcohol Use History: None Reported Past Drug Use History: None Reported - Past Family History Mother Family Medical History: Dementia Additional Family Medical History / Comment(s): AGE 97 OF NATURAL CAUSES Brother(s) Family Medical History: Cancer Additional Family Medical History / Comment(s): HX ASBESTOS Sister(s) Family Medical History: CVA/TIA Daughter(s) Additional Family Medical History / Comment(s): ANXIETY/SCOLIOSIS Son(s) Additional Family Medical History / Comment(s): HX HEMOCHROMATOSIS Medications and Allergies Home Medications Medication Instructions Recorded Confirmed Type Aspirin [Adult Low Dose Aspirin EC] 81 mg PO DAILY 08/22/16 10/11/23 History Atorvastatin [Lipitor] 20 mg PO HS 12/22/20 10/11/23 History Gabapentin [Neurontin] 300 mg PO BID 01/02/21 10/11/23 History Pantoprazole Sodium [Protonix] 20 mg PO DAILY 01/02/21 10/12/23 History Zolpidem [Ambien] 5 mg PO HS PRN 01/02/21 10/11/23 History Cyclobenzaprine [Flexeril] 10 mg PO TID PRN 05/19/21 10/12/23 History Glycopyrrolate [Robinul Forte] 2 mg PO TID 05/19/21 10/11/23 History HYDROcodone/APAP 10-325MG [[place] 1 tab PO Q8H PRN 05/19/21 10/11/23 History 10-325] Cranberry Conc/C/Bacill Coag 1 tab PO DAILY 10/11/23 10/11/23 History [Cranberry Urinary 250-30-3.5MG] Escitalopram [Lexapro] 5 mg PO HS 10/11/23 10/11/23 History Metoprolol Succinate (ER) [Toprol 25 mg PO DAILY 10/11/23 10/12/23 History Xl] Vitamin C(Unknown Dose) 1 tab PO DAILY 10/11/23 10/11/23 History lisinopriL [Zestril] 10 mg PO DAILY 10/11/23 10/11/23 History Allergies Allergy/AdvReac Type Severity Reaction Status Date / Time baclofen Allergy Unknown Verified 10/11/23 22:09 latex Allergy Swelling Verified 10/11/23 22:09 Penicillins Allergy Nausea & Verified 10/11/23 22:09 Vomiting quinine AdvReac Rapid Verified 10/11/23 22:09 Heart Rate Physical Exam Vitals: Vital Signs Temp Pulse Resp BP Pulse Ox 10/12/23 09:00 107 H 18 161/89 90 L 10/12/23 08:00 98 18 154/90 93 L 10/12/23 06:00 118 H 18 190/104 95 10/12/23 05:00 111 H 16 198/96 97 10/12/23 04:00 103 H 16 181/110 95 10/12/23 03:00 107 H 12 157/116 95 10/12/23 02:00 112 H 18 152/91 93 L 10/12/23 01:00 117 H 14 158/110 94 L 10/12/23 00:23 112 H 11 L 158/110 92 L 10/12/23 00:12 99.1 F 10/12/23 00:00 116 H 163/104 93 L 10/11/23 23:00 161/121 93 L 10/11/23 22:29 101.2 F H 10/11/23 22:00 116 H 24 173/105 92 L 10/11/23 21:00 114 H 24 177/79 94 L 10/11/23 20:24 112 H 18 160/85 94 L 10/11/23 19:50 99.9 F H 109 H 14 140/77 90 L Intake and Output 10/11/23 10/12/23 10/12/23 22:59 06:59 14:59 Other: Weight 52.617 kg Results CBC & Chem 7: 10/12/23 07:34 10/12/23 07:34 Labs: Abnormal Lab Results - Last 24 Hours (Table) 10/11/23 10/11/23 10/11/23 Range/Units 20:30 20:30 20:32 WBC 23.3 H (3.8-10.6) k/uL Plt Count 457 H (150-450) k/uL Neutrophils # 19.1 H (1.3-7.7) k/uL Monocytes # 1.5 H (0-1.0) k/uL BUN 19 H (7-17) mg/dL Creatinine 1.28 H (0.52-1.04) mg/dL Glucose 128 H (74-99) mg/dL POC Glucose (mg/dL) (70-110) mg/dL Plasma Lactic Acid Alan (0.7-2.0) mmol/L Vitamin B12 (200.0-944.0) pg/mL Urine Protein Trace H (Negative) Ur Leukocyte Esterase Small H (Negative) SARS-CoV-2 (PCR) (Not Detectd) 10/11/23 10/11/23 10/12/23 Range/Units 20:32 20:43 07:34 WBC (3.8-10.6) k/uL Plt Count (150-450) k/uL Neutrophils # (1.3-7.7) k/uL Monocytes # (0-1.0) k/uL BUN (7-17) mg/dL Creatinine (0.52-1.04) mg/dL Glucose (74-99) mg/dL POC Glucose (mg/dL) 118 H (70-110) mg/dL Plasma Lactic Acid Alan 0.6 L (0.7-2.0) mmol/L Vitamin B12 (200.0-944.0) pg/mL Urine Protein (Negative) Ur Leukocyte Esterase (Negative) SARS-CoV-2 (PCR) Detected A (Not Detectd) 10/12/23 10/12/23 10/12/23 Range/Units 07:34 07:34 07:34 WBC 22.4 H (3.8-10.6) k/uL Plt Count 453 H (150-450) k/uL Neutrophils # 20.7 H (1.3-7.7) k/uL Monocytes # (0-1.0) k/uL BUN (7-17) mg/dL Creatinine (0.52-1.04) mg/dL Glucose 128 H (74-99) mg/dL POC Glucose (mg/dL) (70-110) mg/dL Plasma Lactic Acid Alan (0.7-2.0) mmol/L Vitamin B12 1760.0 H (200.0-944.0) pg/mL Urine Protein (Negative) Ur Leukocyte Esterase (Negative) SARS-CoV-2 (PCR) (Not Detectd) Assessment and Plan Plan: 1patient presented to hospital with weakness mental status changes in this patient who did have a features of sepsis with fever and elevated white count, which is more likely due to COVID-19 infection however no evidence of pneumonia on the chest x-ray and the patient not hypoxic or need for supplemental oxygen, clinical suspicion is low for encephalitis or meningitis as the patient denies any headache she know that she is in the hospital and did not have any neck rigidity. 2if the family still concerned may consider doing LP tomorrow after the Lovenox is put on hold as per recommendation of the anesthesiologist. 3for now t treatment for COVID-19 will be supportive and no need for remdesivir or steroids along with droplet isolation. We will follow on clinical condition and cultures to further adjust medication if needed Thank you for this consultation we will follow the patient along with you Dictation was produced using [employer] dictation software. please excuse any grammatical, word or spelling errors. Time with Patient: Greater than 30
--- NOTE | 2023-10-12 23:50 | EEG ---
ELECTROENCEPHALOGRAM REPORT CLINICAL HISTORY: This is an 83-year-old woman with recent COVID-19 infection, who has altered mental status. The video EEG is obtained to evaluate for seizure epileptiform activity. RELEVANT MEDICATIONS: 1. Gabapentin. 2. Ambien. EEG TYPE: This is a routine 21-channel EEG with video using the 10/20 electrode placement system. DESCRIPTION: Wakefulness and drowsiness are obtained. During awake state, the posterior- dominant rhythm consists of [id number] voltage of 8 to 9 hertz activity. There is no physiological stage 2 sleep architecture. There is no focal slowing. Interictal and ictal is none. ACTIVATION PROCEDURE: Photic stimulation and hyperventilation are not performed. CLINICAL INTERPRETATION: This is a normal routine EEG. There is no focal slowing, epileptiform discharge, or seizure on the EEG. Clinical correlation is recommended. MMODL / IJN: [id number] / MTDD
[2023-10-13] MEDS: SODIUM CHLORIDE 0.9% 1,000 ML IV SCH ×2 (01:46→16:27)
[2023-10-13 06:31] LABS: African American GFR (CKD) 72 (>60 ml/min/1.73 sqM); Non-African American GFR(CKD) 62 (>60 ml/min/1.73 sqM)
[2023-10-13 08:18] LABS: HCT 34.6 % (34.0-46.0); HGB 11.6 gm/dL (11.4-16.0); MCH 30.9 pg (25.0-35.0); MCHC 33.5 g/dL (31.0-37.0); Mean Platelet Volume 8.1; Platelet Count 534 k/uL (150-450); RBC 3.76 m/uL (3.80-5.40); RDW 13.2 % (11.5-15.5); WBC 26.6 k/uL (3.8-10.6)
[2023-10-13] MEDS: ACYCLOVIR SODIUM 500 MG in SODIUM CHLORIDE 0.9% 100 ML IVPB SCH (08:33)
[2023-10-13] MEDS: lisinopriL 10 MG TAB PO SCH (08:34)
[2023-10-13] MEDS: PANTOPRAZOLE 40 MG TABLET PO SCH (08:34)
[2023-10-13] MEDS: METOPROLOL SUCCINATE (ER) 25 MG TAB.ER.24H PO SCH (08:34)
[2023-10-13] MEDS: ASPIRIN 81 MG PO SCH (08:34)
[2023-10-13] MEDS ORDERED: VANCOMYCIN 1,000 MG in SODIUM CHLORIDE 0.9% 250 ML IVPB SCH (09:00)
--- NOTE | 2023-10-13 12:31 | P.PN ---
Subjective Progress Note Date: 10/13/23 Patient is a 83-year-old female with a PMH of chronic kidney disease, hypertension and hyperlipidemia who was brought to the emergency room by his daughter for confusion. The daughter notes the patient tested positive for COVID yesterday at home and has been falling, with 2 falls yesterday where she hit her head. They were concerned as she had been increasingly confused, which usually happens when she has a UTI. Daughter reports that she has been weak and confused for the past few days and has had a significantly decreased appetite. Minimal history was obtained from the patient as she was only oriented to self at the time of interview. Head and cervical spine CT in the emergency room was unremarkable. Chest x-ray revealed mild pulmonary vascular congestion. EKG revealed sinus tachycardia at [address]/T-wave changes are as reviewed by me. Laboratory evaluation revealed Coronavirus PCR positive, UA unremarkable, and WBC count 23.3 with platelet count 457. The patient had a T-max of 101.0F in the emergency room with an SpO2 of 90% on room air. Patient was started on Rocephin, Acyclovir and Vancomycin for concerns of meningitis or encephalitis and admitted for Neurology evaluation. 10/12 Patient was seen and examined. She is pleasantly confused. Thinks she is in [place]. Thinks its the 1919. Can recall who the president is. CBC WBC 22.4, Plt 451. BMP glu 128. Lactic acid 0.6. 10/13 Patient was seen and examined. Still confused. ID consulted, low concerns for meningitis/encephalitis. CBC WBC 26.6, RBC 3.76, Plt 534. B12 1760. TSH 0.386. Pro wellington 0.08. EEG negative. Neurology has ordered MRI brain. BCx prelim negative. Vital signs reviewed General: non toxic, no distress, appears at stated age, normal weight Derm: no unusual rashes/lesions, warm Head: atraumatic, normocephalic, symmetric Eyes: EOMI, no lid lag, anicteric sclera ENT: Nose and ears atraumatic Neck: No cervical lymphadenopathy, trachea midline, supple Cardiovascular: S1S2 reg, no murmur Lungs: CTA bilateral, no rhonchi, no rales, no accessory muscle use Ext: muscle strength 4 out of 5 in all 4 extremities grossly, no gross muscle atrophy, no contractures, Neuro: no gross focal neuro deficits Psych: Alert, oriented x 1. Based on my assessment of this patient, this patient meets a high complexity level of care. Patient has an acute diagnosis of sepsis in the setting of COVID 19 that poses a threat to life or bodily function. Acute metabolic encephalopathy: Patient on multiple sedative medications including Flexeril, Gabapentin, [place] and Ambien at home. Doubtful for meningitis/encephalitis. Also hypoxic from COVID 19. TSH, B12, Folate as above. Fall precautions. Empirically started on Acyclovir, Vancomycin and Rocephin. MRI brain ordered by Neurology. Neurology and ID on board. Sepsis related to COVID-19 pneumonia: Leukocytosis, tachycardia, positive source of infection. Decadron 6 mg PO QD. Antibiotics empirically as above. Pro wellington negative. Hypertensive urgency: Metoprolol 25 mg PO QD. Lisinopril 10 mg PO QD. Resolved: MARYANNE CODE STATUS: FULL CODE DVT Prophylaxis: Lovenox SQ GI Prophylaxis: Protonix Designated medical POA if patient is not able to make medical decisions for themselves: I have reviewed the following category consultant notes: Neurology, ID. I have reviewed the results of the following tests: B12, EEG, Pro wellington, TSH. I have ordered the following tests: Folate I have discussed the care of this patient with the following independent historian: I have independently interpreted the following test below: I have discussed the management of this patient with the following physician: Discussed with Dr. Rodriguez and Dr. Ghosh. This patient has a high risk of morbidity due to the following reasons: Patient requires IV vancomycin which requires intensive monitoring for renal function given underlying CKD. Objective - Vital Signs Vital signs: Vital Signs Temp 97.6 F 10/13/23 07:13 Pulse 112 H 10/13/23 07:13 Resp 21 10/13/23 07:13 BP 175/85 10/13/23 07:13 Pulse Ox 96 10/13/23 07:13 FiO2 Intake & Output 10/12/23 10/13/23 10/13/23 18:59 06:59 18:59 Output Total 1 Balance -1 Weight 52.617 kg Output: Urine 1 Other: Voiding Method External Catheter # Voids 2 - Labs CBC & Chem 7: 10/13/23 07:45 10/13/23 05:31 Labs: Abnormal Lab Results - Last 24 Hours (Table) 10/12/23 10/13/23 Range/Units 07:34 07:45 WBC 26.6 H (3.8-10.6) k/uL RBC 3.76 L (3.80-5.40) m/uL Plt Count 534 H (150-450) k/uL Vitamin B12 1760.0 H (200.0-944.0) pg/mL Microbiology - Last 24 Hours (Table) 10/11/23 20:15 Blood Culture - Preliminary Blood 10/11/23 20:30 Blood Culture - Preliminary Blood
--- NOTE | 2023-10-13 15:51 | P.PN ---
Subjective Progress Note Date: 10/13/23 Principal diagnosis: Reason for follow-up is COVID-19 leukocytosis and a question of encephalitis Patient is a 83-year-old female with a past medical history significant for hyperlipidemia osteoarthritis recurrent urinary tract infection patient was brought into the ER concerning for weakness mental status changes and apparently the patient tested positive with COVID-19 on a home test patient on presentation to the hospital did have a fever and tested positive for COVID- 19 but not hypoxic chest x-ray with no acute infiltrate On today's evaluation that is 10/13/2023, the patient fever has resolved and the patient is afebrile this morning patient is breathing comfortably on room air patient denies having any chest pain she did have a cough but not bringing up any sputum no nausea no vomiting no abdominal pain no diarrhea feeling better no headache or focal weakness. Patient did have white count of 26.6 creatinine 0.86, procalcitonin 0.08 Objective - Vital Signs Vital signs: Vital Signs Temp 97.6 F 10/13/23 07:13 Pulse 112 H 10/13/23 07:13 Resp 21 10/13/23 07:13 BP 175/85 10/13/23 07:13 Pulse Ox 96 10/13/23 07:13 FiO2 Intake & Output 10/12/23 10/13/23 10/13/23 18:59 06:59 18:59 Output Total 1 Balance -1 Weight 52.617 kg Output: Urine 1 Other: Voiding Method External Catheter # Voids 2 - Exam GENERAL DESCRIPTION: Elderly female lying in bed in no distress RESPIRATORY SYSTEM: Unlabored breathing , decreased breath sounds at bases HEART: S1 S2 regular rate and rhythm , ABDOMEN: Soft , no tenderness EXTREMITIES: No edema feet - Labs CBC & Chem 7: 10/13/23 07:45 10/13/23 05:31 Labs: Abnormal Lab Results - Last 24 Hours (Table) 10/12/23 10/13/23 Range/Units 07:34 07:45 WBC 26.6 H (3.8-10.6) k/uL RBC 3.76 L (3.80-5.40) m/uL Plt Count 534 H (150-450) k/uL Vitamin B12 1760.0 H (200.0-944.0) pg/mL Microbiology - Last 24 Hours (Table) 10/11/23 20:15 Blood Culture - Preliminary Blood 10/11/23 20:30 Blood Culture - Preliminary Blood Assessment and Plan (1) COVID-19 Current Visit: Yes Status: Acute Code(s): U07.1 - COVID-19 SNOMED Code(s): 758292423 (2) Leukocytosis Current Visit: Yes Status: Acute Code(s): D72.829 - ELEVATED WHITE BLOOD CELL COUNT, UNSPECIFIED SNOMED Code(s): 375440218 Plan: 1patient presented to hospital with weakness mental status changes in this patient who did have a features of sepsis with fever and elevated white count, which is more likely due to COVID-19 infection however no evidence of pneumonia on the chest x-ray and the patient not hypoxic or need for supplemental oxygen, clinical suspicion is low for encephalitis or meningitis as the patient denies any headache she know that she is in the hospital and did not have any neck rigidity. 2clinical suspicious low for encephalitis or meningitis I will discontinue acyclovir and vancomycin to decrease risk of nephrotoxicity. 3treatment for COVID with mostly supportive no need for remdesivir patient is showing clinical improvement will recommend zinc ascorbic acid 4leukocytosis more likely steroid related and will be monitored closely Dictation was produced using [employer] dictation software. please excuse any grammatical, word or spelling errors. Time with Patient: Less than 30
[2023-10-13] MEDS: dexAMETHasone 4 MG TAB PO SCH (16:25)
--- NOTE | 2023-10-13 16:59 | P.PN ---
Subjective Progress Note Date: 10/13/23 I am following-up with patient and she is feeling better. Denies of any headache, nausea or vomiting. Denies of any new weakness. Objective - Vital Signs Vital signs: Vital Signs Temp 98.7 F 10/13/23 13:11 Pulse 104 H 10/13/23 13:11 Resp 22 10/13/23 13:11 BP 172/83 10/13/23 13:11 Pulse Ox 96 10/13/23 13:11 FiO2 Intake & Output 10/12/23 10/13/23 10/13/23 18:59 06:59 18:59 Output Total 1 Balance -1 Weight 52.617 kg Output: Urine 1 Other: Voiding Method External Catheter Toilet # Voids 2 - Exam General: Sitting in bed and is not in acute distress. HENT: Supple neck. Neuro: Patient is awake alert oriented to self and time. She stated that she is in the hospital but stated it was [facility]. She is following simple commands. No aphasia. No neglect The pupils are round equal and reactive to light. Visual simon are full to confrontation. Extraocular movement is intact. No facial weakness. No dysarthria. Motor is less than all extremity above gravity equally. Sensory is normal to touch throughout. Some of the work-up during this hospital visit consisted of: Tmax of 101.2F ora on 10/11/23. No further fevers for past 36 hours. wbc is 23.3K, platelete 450K and predominately neutrophilic. Plan B12 is 1760 TSH is 0.386 Ammonia is less than 9 Sodium, calcium within normal limits. Glucose is 128. Vitamin B12: 1760 SARS-COV-[address] head is reported as no acute intracranial process. I personally reviewed the CT of the head and I agree with the report. CT cervical spine is reported as no evidence of cervical spine fracture. Moderate multilevel degenerative disc disease and extensive postsurgical changes. EEG:Is normal. - Labs CBC & Chem 7: 10/13/23 07:45 10/13/23 05:31 Labs: Abnormal Lab Results - Last 24 Hours (Table) 10/13/23 Range/Units 07:45 WBC 26.6 H (3.8-10.6) k/uL RBC 3.76 L (3.80-5.40) m/uL Plt Count 534 H (150-450) k/uL Microbiology - Last 24 Hours (Table) 10/11/23 20:15 Blood Culture - Preliminary Blood 10/11/23 20:30 Blood Culture - Preliminary Blood Assessment and Plan Assessment: This is an 83-year-old woman with upper respiratory tract infection for the past 8 days. She was tested positive for COVID-19 about two days ago and for past two days has been more confused, lethargic. In our facility she had low grade fever, leukocytosis and hypoxic. 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 She has fever with leukocytosis--no fever. No headache or nuchal rigidity and today her confusion is improving. Primary team on initial presentation is concerned about possible meningoencephalitis which I doubt. Also I.D. agree the suspicion is less likely regarding meningoencephalitis. Acute COVID-19 Hypertension and per daughter she has labile HTN Plan: Routine EEG is normal. MRI Brain is ordered and Lumbar puncture is ordered and pending. she did not have lumbar puncture yesterday since was on Lo[place]ox. Patient's daughter does not feel she needs these test and would like to take patient home. I will defer antibtiotic/viral medication to primary. Again, I doubt this is meningoencephalitis and mentation is improved compared to presentation. We'll defer the rest of the medical management to primary team and other spe cialists I had a lengthy discussion with primary team and nurse. Time with Patient: Less than 30
[2023-10-13] MEDS: ATORVASTATIN 20 MG TAB PO SCH (20:11)
[2023-10-13] MEDS: HYDROcodone/APAP 10-325MG 1 EACH TAB PO PRN (20:11)
[2023-10-14] MEDS: HYDROcodone/APAP 10-325MG 1 EACH TAB PO PRN ×2 (04:02→12:13)
[2023-10-14] MEDS ORDERED: VANCOMYCIN 1,000 MG in SODIUM CHLORIDE 0.9% 250 ML IVPB SCH (06:00)
[2023-10-14 07:24] LABS: African American GFR (CKD) 68 (>60 ml/min/1.73 sqM); Non-African American GFR(CKD) 59 (>60 ml/min/1.73 sqM)
[2023-10-14] MEDS: ASPIRIN 81 MG PO SCH (07:42)
[2023-10-14] MEDS: PANTOPRAZOLE 40 MG TABLET PO SCH (07:42)
[2023-10-14] MEDS: lisinopriL 10 MG TAB PO SCH (07:42)
[2023-10-14] MEDS: METOPROLOL SUCCINATE (ER) 25 MG TAB.ER.24H PO SCH (07:42)
[2023-10-14] MEDS: dexAMETHasone 4 MG TAB PO SCH (07:42)
[2023-10-14 08:02] VITALS: TEMP 98.2
[2023-10-14 11:25] LABS: HCT 40.8 % (34.0-46.0); HGB 13.1 gm/dL (11.4-16.0); MCH 29.8 pg (25.0-35.0); MCHC 32.2 g/dL (31.0-37.0); MCV 92.4 fL (80.0-100.0); Mean Platelet Volume 7.1; Platelet Count 627 k/uL (150-450); RBC 4.41 m/uL (3.80-5.40); RDW 13.5 % (11.5-15.5); WBC 21.4 k/uL (3.8-10.6)
[2023-10-14 11:45] LABS: African American GFR (CKD) 67 (>60 ml/min/1.73 sqM); Anion Gap 16 mmol/L; Blood Urea Nitrogen 23 mg/dL (7-17); Calcium 8.9 mg/dL (8.4-10.2); Carbon Dioxide 22 mmol/L (22-30); Chloride 102 mmol/L (98-107); Glucose 172 mg/dL (74-99); Non-African American GFR(CKD) 58 (>60 ml/min/1.73 sqM); Potassium 3.7 mmol/L (3.5-5.1); Sodium 140 mmol/L (137-145)
[2023-10-14 13:36] VITALS: BP 163/88; PULSE 89; RESP 14
--- NOTE | 2023-10-14 15:01 | P.PN ---
Subjective Progress Note Date: 10/14/23 Patient is a 83-year-old female with a PMH of chronic kidney disease, hypertension and hyperlipidemia who was brought to the emergency room by his daughter for confusion. The daughter notes the patient tested positive for COVID yesterday at home and has been falling, with 2 falls yesterday where she hit her head. They were concerned as she had been increasingly confused, which usually happens when she has a UTI. Daughter reports that she has been weak and confused for the past few days and has had a significantly decreased appetite. Minimal history was obtained from the patient as she was only oriented to self at the time of interview. Head and cervical spine CT in the emergency room was unremarkable. Chest x-ray revealed mild pulmonary vascular congestion. EKG revealed sinus tachycardia at [address]/T-wave changes are as reviewed by me. Laboratory evaluation revealed Coronavirus PCR positive, UA unremarkable, and WBC count 23.3 with platelet count 457. The patient had a T-max of 101.0F in the emergency room with an SpO2 of 90% on room air. Patient was started on Rocephin, Acyclovir and Vancomycin for concerns of meningitis or encephalitis and admitted for Neurology evaluation. 10/12 Patient was seen and examined. She is pleasantly confused. Thinks she is in [place]. Thinks its the 1919. Can recall who the president is. CBC WBC 22.4, Plt 451. BMP glu 128. Lactic acid 0.6. 10/13 Patient was seen and examined. Still confused. ID consulted, low concerns for meningitis/encephalitis, DC Vancomycin and Acyclovir. CBC WBC 26.6, RBC 3.76, Plt 534. B12 1760. TSH 0.386. Pro wellington 0.08. EEG negative. Neurology has ordered MRI brain. BCx prelim negative. 10/14 Patient was seen and examined. She is much more alert and oriented. CBC WBC 21.4. BMP BUN 23, glu 172. Vital signs reviewed General: non toxic, no distress, appears at stated age, normal weight Derm: no unusual rashes/lesions, warm Head: atraumatic, normocephalic, symmetric Eyes: EOMI, no lid lag, anicteric sclera ENT: Nose and ears atraumatic Neck: No cervical lymphadenopathy, trachea midline, supple Cardiovascular: S1S2 reg, no murmur Lungs: CTA bilateral, no rhonchi, no rales, no accessory muscle use Ext: muscle strength 4 out of 5 in all 4 extremities grossly, no gross muscle atrophy, no contractures, Neuro: no gross focal neuro deficits Psych: Alert, oriented x 1. Based on my assessment of this patient, this patient meets a high complexity level of care. Patient has an acute diagnosis of sepsis in the setting of COVID 19 that poses a threat to life or bodily function. Acute metabolic encephalopathy: Patient on multiple sedative medications including Flexeril, Gabapentin, [place] and Ambien at home. Doubtful for meningitis/encephalitis. Also hypoxic from COVID 19. TSH, B12, Folate as above. Fall precautions. Empirically started on Rocephin. Acyclovir and Vancomycin discontinued as low concerns for encephalitis. MRI brain ordered by Neurology. Neurology and ID on board. Sepsis related to COVID-19 pneumonia: Leukocytosis, tachycardia, positive source of infection. Decadron 6 mg PO QD. Antibiotics empirically as above. Pro wellington negative. Hypertensive urgency: Metoprolol 25 mg PO QD. Lisinopril 10 mg PO QD. Resolved: MARYANNE CODE STATUS: FULL CODE DVT Prophylaxis: Lovenox SQ GI Prophylaxis: Protonix Designated medical POA if patient is not able to make medical decisions for themselves: I have reviewed the following sr technical sales consultant notes: Neurology, ID. I have reviewed the results of the following tests: CBC, BMP I have ordered the following tests: I have discussed the care of this patient with the following independent historian: I have independently interpreted the following test below: I have discussed the management of this patient with the following physician: Discussed with Dr. Rodriguez Objective - Vital Signs Vital signs: Vital Signs Temp 98.2 F 10/14/23 12:51 Pulse 89 10/14/23 12:51 Resp 14 10/14/23 12:51 BP 163/88 10/14/23 12:51 Pulse Ox 97 10/14/23 12:51 FiO2 Intake & Output 10/13/23 10/14/23 10/14/23 18:59 06:59 18:59 Other: Voiding Method Toilet Toilet Toilet # Voids 3 2 # Bowel Movements 2 - Labs CBC & Chem 7: 10/14/23 10:42 10/14/23 10:42 Labs: Abnormal Lab Results - Last 24 Hours (Table) 10/14/23 10/14/23 Range/Units 10:42 10:42 WBC 21.4 H (3.8-10.6) k/uL Plt Count 627 H (150-450) k/uL BUN 23 H (7-17) mg/dL Glucose 172 H (74-99) mg/dL Microbiology - Last 24 Hours (Table) 10/11/23 20:15 Blood Culture - Preliminary Blood 10/11/23 20:30 Blood Culture - Preliminary Blood
--- NOTE | 2023-10-14 16:48 | P.DS ---
Providers Date of admission: 10/11/23 22:37 Expected date of discharge: 10/14/23 Attending physician: Juan Flor MD Consults: 10/12/23 01:15 Consult Physician Urgent Consulting Provider: Ildefonso Rodriguez Consult Reason/Comments: AMS, ?meningitis Do you want consulting provider notified?: Yes 10/12/23 10:30 Consult Physician Routine Consulting Provider: Maryann Ghosh Consult Reason/Comments: fever with confusion r/o meningitis vs other causes Do you want consulting provider notified?: Yes Primary care physician: [facility] Course: Patient is a 83-year-old female with a PMH of chronic kidney disease, hypertension and hyperlipidemia who was brought to the emergency room by his daughter for confusion. The daughter notes the patient tested positive for C OVID yesterday at home and has been falling, with 2 falls yesterday where she hit her head. They were concerned as she had been increasingly confused, which usually happens when she has a UTI. Daughter reports that she has been weak and confused for the past few days and has had a significantly decreased appetite. Minimal history was obtained from the patient as she was only oriented to self at the time of interview. Head and cervical spine CT in the emergency room was unremarkable. Chest x-ray revealed mild pulmonary vascular congestion. EKG revealed sinus tachycardia at [address]/T-wave changes are as reviewed by me. Laboratory evaluation revealed Coronavirus PCR positive, UA unremarkable, and WBC count 23.3 with platelet count 457. The patient had a T-max of 101.0F in the emergency room with an SpO2 of 90% on room air. Patient was started on Rocephin, Acyclovir and Vancomycin for concerns of meningitis or encephalitis and admitted for Neurology evaluation. 10/12 Patient was seen and examined. She is pleasantly confused. Thinks she is in [place]. Thinks its the 1919. Can recall who the president is. CBC WBC 22.4, Plt 451. BMP glu 128. Lactic acid 0.6. 10/13 Patient was seen and examined. Still confused. ID consulted, low concerns for meningitis/encephalitis, DC Vancomycin and Acyclovir. CBC WBC 26.6, RBC 3.76, Plt 534. B12 1760. TSH 0.386. Pro [place] 0.08. EEG negative. Neurology has ordered MRI brain. BCx prelim negative. 10/14 Patient was seen and examined. She is much more alert and oriented. CBC WBC 21.4. BMP BUN 23, glu 172. ID seems to think her leukocytosis is related to steroid use. Her daughter is at bedside and reports she is back to baseline. She would like to take her mother home. Discharged with the following instructions: Please see your PCP as you are on many sedative medication that could cause confusion: These medications include Glycopyrrolate, Addison, Zolpidem, Gabapentin and Flexeril. Vital signs reviewed General: non toxic, no distress, appears at stated age, normal weight Derm: no unusual rashes/lesions, warm Head: atraumatic, normocephalic, symmetric Eyes: EOMI, no lid lag, anicteric sclera ENT: Nose and ears atraumatic Neck: No cervical lymphadenopathy, trachea midline, supple Cardiovascular: S1S2 reg, no murmur Lungs: CTA bilateral, no rhonchi, no rales, no accessory muscle use Ext: muscle strength 4 out of 5 in all 4 extremities grossly, no gross muscle atrophy, no contractures, Neuro: no gross focal neuro deficits Psych: Alert, oriented x 1. Discharge Diagnosis: Acute metabolic encephalopathy Sepsis related to COVID-19 pneumonia Hypertensive urgency Resolved: MARYANNE Patient Condition at Discharge: Stable Plan - Discharge Summary Discharge Rx Participant: Yes New Discharge Prescriptions: New dexAMETHasone ORAL [Hexadrol] 6 mg PO DAILY #7 tab Continue Aspirin [Adult Low Dose Aspirin EC] 81 mg PO DAILY Atorvastatin [Lipitor] 20 mg PO HS Pantoprazole Sodium [Protonix] 20 mg PO DAILY Glycopyrrolate [Robinul Forte] 2 mg PO TID HYDROcodone/APAP 10-325MG [Addison 10-325] 1 tab PO Q8H PRN PRN Reason: Pain Vitamin C(Unknown Dose) 1 tab PO DAILY Metoprolol Succinate (ER) [Toprol XL] 25 mg PO DAILY Escitalopram [Lexapro] 5 mg PO HS Zolpidem [Ambien] 5 mg PO HS PRN PRN Reason: Insomnia Gabapentin [Neurontin] 300 mg PO BID Cyclobenzaprine [Flexeril] 10 mg PO TID PRN PRN Reason: Muscle Spasm lisinopriL [Zestril] 10 mg PO DAILY Cranberry Conc/C/Bacill Coag [Cranberry Urinary 250-30-3.5MG] 1 tab PO DAILY Discharge Medication List Aspirin [Adult Low Dose Aspirin EC] 81 mg PO DAILY 08/22/16 [History] Atorvastatin [Lipitor] 20 mg PO HS 12/22/20 [History] Gabapentin [Neurontin] 300 mg PO BID 01/02/21 [History] Pantoprazole Sodium [Protonix] 20 mg PO DAILY 01/02/21 [History] Zolpidem [Ambien] 5 mg PO HS PRN 01/02/21 [History] Cyclobenzaprine [Flexeril] 10 mg PO TID PRN 05/19/21 [History] Glycopyrrolate [Robinul Forte] 2 mg PO TID 05/19/21 [History] HYDROcodone/APAP 10-325MG [Addison 10-325] 1 tab PO Q8H PRN 05/19/21 [History] Cranberry Conc/C/Bacill Coag [Cranberry Urinary 250-30-3.5MG] 1 tab PO DAILY 10/11/23 [History] Escitalopram [Lexapro] 5 mg PO HS 10/11/23 [History] Metoprolol Succinate (ER) [Toprol XL] 25 mg PO DAILY 10/11/23 [History] Vitamin C(Unknown Dose) 1 tab PO DAILY 10/11/23 [History] lisinopriL [Zestril] 10 mg PO DAILY 10/11/23 [History] dexAMETHasone ORAL [Hexadrol] 6 mg PO DAILY #7 tab 10/14/23 [Rx] Follow up Appointment(s)/Referral(s): Ama Frederick MD [Primary Care Provider] - 1-2 days Activity/Diet/Wound Care/Special Instructions: Please see your PCP as you are on many sedative medication that could cause confusion: These medications include Glycopyrrolate, Addison, Zolpidem, Gabapentin and Flexeril. Discharge Disposition: HOME SELF-CARE
== END 2023-10-14 17:33 | disposition home or self-care (01) | DRG 871 ==
LOC: EC 19:41 → 4SSUR 22:37
PROVIDERS: ADMIT Internal Medicine; ATTEND Internal Medicine
PROC: 4A10X4Z Monitoring of Central Nervous Electrical Activity, External Approach (ICD-10-PCS; principal; 2023-10-12)
DX: A41.89 Other specified sepsis (principal); G93.41 Metabolic encephalopathy; J12.82 Pneumonia due to coronavirus disease 2019; J96.01 Acute respiratory failure with hypoxia; U07.1 COVID-19; N17.9 Acute kidney failure, unspecified; G93.1 Anoxic brain damage, not elsewhere classified; S09.90XA Unspecified injury of head, initial encounter; E86.0 Dehydration; I48.91 Unspecified atrial fibrillation; I12.9 Hypertensive chronic kidney disease with stage 1 through stage 4 chronic kidney disease, or unspecified chronic kidney disease; N18.9 Chronic kidney disease, unspecified; E78.5 Hyperlipidemia, unspecified; F41.9 Anxiety disorder, unspecified; I16.0 Hypertensive urgency; J06.9 Acute upper respiratory infection, unspecified; R29.6 Repeated falls; W19.XXXA Unspecified fall, initial encounter; Z87.440 Personal history of urinary (tract) infections; E11.22 Type 2 diabetes mellitus with diabetic chronic kidney disease; F17.210 Nicotine dependence, cigarettes, uncomplicated; T38.0X5A Adverse effect of glucocorticoids and synthetic analogues, initial encounter; Y92.009 Unspecified place in unspecified non-institutional (private) residence as the place of occurrence of the external cause; Z79.82 Long term (current) use of aspirin; D75.839 Thrombocytosis, unspecified; Z79.899 Other long term (current) drug therapy; Z88.1 Allergy status to other antibiotic agents; Z88.0 Allergy status to penicillin; Z91.040 Latex allergy status; Z98.42 Cataract extraction status, left eye; Z98.41 Cataract extraction status, right eye
CPT/HCPCS: 36415; 70450; 71045; 72125; 80048; 80053; 81001; 82140; 82565; 82607; 82746; 83605; 84145; 84443; 84484; 85025; 85027; 85610; 85730; 87040; 87636; 93005; 95816; 96361; 96365; 96366; 96367; 96372; 96375; 99285

== ENCOUNTER 2023-10-26 21:53 | Emergency (ER) | payer MEDICARE ==
[2023-10-26 22:04] VITALS: TEMP 97.8
--- NOTE | 2023-10-26 23:00 | ED ---
General Adult HPI - General Chief complaint: Recheck/Abnormal Lab/Rx Stated complaint: Lethargic Time Seen by Provider: 10/26/23 22:14 Source: family Mode of arrival: wheelchair Limitations: no limitations - History of Present Illness Initial comments: 83-year-old female presenting to the ED with a chief complaint of generalized fatigue. Per patient's daughter, had coded 2 weeks ago and patient has completed this treatment. Today, when she went home states that the patient appeared "out of it" and therefore brought the patient here for further eval uation. Daughter, patient is at her normal self right now. Patient currently has 0 complaints. Denied chest pain, shortness of breath, abdominal pain, nausea, vomiting, diarrhea. No other complaints. - Related Data Home Medications Medication Instructions Recorded Confirmed Aspirin [Adult Low Dose Aspirin EC] 81 mg PO DAILY 08/22/16 10/11/23 Atorvastatin [Lipitor] 20 mg PO HS 12/22/20 10/11/23 Gabapentin [Neurontin] 300 mg PO BID 01/02/21 10/11/23 Pantoprazole Sodium [Protonix] 20 mg PO DAILY 01/02/21 10/12/23 Zolpidem [Ambien] 5 mg PO HS PRN 01/02/21 10/11/23 Cyclobenzaprine [Flexeril] 10 mg PO TID PRN 05/19/21 10/12/23 Glycopyrrolate [Robinul Forte] 2 mg PO TID 05/19/21 10/11/23 HYDROcodone/APAP 10-325MG [[place] 1 tab PO Q8H PRN 05/19/21 10/11/23 10-325] Cranberry Conc/C/Bacill Coag 1 tab PO DAILY 10/11/23 10/11/23 [Cranberry Urinary 250-30-3.5MG] Escitalopram [Lexapro] 5 mg PO HS 10/11/23 10/11/23 Metoprolol Succinate (ER) [Toprol 25 mg PO DAILY 10/11/23 10/12/23 XL] Vitamin C(Unknown Dose) 1 tab PO DAILY 10/11/23 10/11/23 lisinopriL [Zestril] 10 mg PO DAILY 10/11/23 10/11/23 Previous Rx's Medication Instructions Recorded dexAMETHasone ORAL [Hexadrol] 6 mg PO DAILY #7 tab 10/14/23 Allergies Allergy/AdvReac Type Severity Reaction Status Date / Time baclofen Allergy Unknown Verified 10/26/23 22:04 latex Allergy Swelling Verified 10/26/23 22:04 Penicillins Allergy Nausea & Verified 10/26/23 22:04 Vomiting quinine AdvReac Rapid Verified 10/26/23 22:04 Heart Rate Review of Systems ROS Statement: Those systems with pertinent positive or pertinent negative responses have been documented in the HPI. ROS Other: All systems not noted in ROS Statement are negative. Past Medical History Past Medical History: Hyperlipidemia, Osteoarthritis (OA) Additional Past Medical History / Comment(s): HX SPINAL STENOSIS/OSTEOARTHRITIS. Cervical myelopathy with upper extremity weakness status post anterior cervical decompression and fusion on 12/23/2020. Recurrent urinary tract infect ions History of Any Multi-Drug Resistant Organisms: None Reported Past Surgical History: Back Surgery Additional Past Surgical History / Comment(s): HX HAND NEUROMA LEFT FOOT/ BILAT CATARACTS REMOVED AND GLAUCOMA, neck surgery Past Anesthesia/Blood Transfusion Reactions: No Reported Reaction Past Psychological History: Anxiety Smoking Status: Former smoker Past Alcohol Use History: None Reported Past Drug Use History: None Reported - Past Family History Mother Family Medical History: Dementia Additional Family Medical History / Comment(s): AGE 97 OF NATURAL CAUSES Brother(s) Family Medical History: Cancer Additional Family Medical History / Comment(s): HX ASBESTOS Sister(s) Family Medical History: CVA/TIA Daughter(s) Additional Family Medical History / Comment(s): ANXIETY/SCOLIOSIS Son(s) Additional Family Medical History / Comment(s): HX HEMOCHROMATOSIS General Exam Limitations: no limitations General appearance: alert, in no apparent distress Eye exam: Present: normal appearance Neck exam: Present: normal inspection Respiratory exam: Present: normal lung sounds bilaterally Cardiovascular Exam: Present: regular rate, normal rhythm GI/Abdominal exam: Present: soft Neurological exam: Present: alert, oriented X3 Skin exam: Present: warm, dry Course Vital Signs 10/26/23 10/27/23 22:02 01:15 Temperature 97.8 F Pulse Rate 66 69 Respiratory 16 18 Rate Blood Pressure 158/117 150/89 O2 Sat by Pulse 94 L 96 Oximetry Medical Decision Making - Medical Decision Making Was pt. sent in by a medical professional or institution (Dr., PA, MACHINE CERAMIC COATER, urgent care, hospital, or long-term...) When possible be specific @ -No Did you speak to anyone other than the patient for history (EMS, parent, family, police, friend...)? What history was obtained from this source @ -No Did you review nursing and triage notes (agree or disagree)? Why? @ -I reviewed and agree with nursing and triage notes Were old charts reviewed (outside hosp., previous admission, EMS record, old EKG, old radiological studies, urgent care reports/EKG's, long-term records)? Report findings @ -Yes, please see them MDM for further details. Differential Diagnosis (chest pain, altered mental status, abdominal pain women, abdominal pain men, vaginal bleeding, weakness, fever, dyspnea, syncope, headache, dizziness, GI bleed, back pain, seizure, CVA, palpatations, mental health, musculoskeletal)? @ -Differential Weakness: Hypoglycemia, shock, sepsis, hyponatremia, anemia, infection, [place], ETOH, adverse medicine reaction, overdose, stroke, this is not meant to be an all-inclusive list. EKG interpreted by me (3pts min.). @ -As above X-rays interpreted by me (1pt min.). @ -None done CT interpreted by me (1pt min.). @ -None done U/S interpreted by me (1pt. min.). @ -None done What testing was considered but not performed or refused? (CT, X-rays, U/S, labs)? Why? @ -None What meds were considered but not given or refused? Why? @ -None Did you discuss the management of the patient with other professionals (professionals i.e. JOHNNY Ivory, MACHINE CERAMIC COATER, lab, RT, psych nurse, social security assessor, business account leader, teacher, personnel training officer, director case management)? Give summary @ -No Was smoking cessation discussed for >3mins.? @ -No Was critical care preformed (if so, how long)? @ -No Were there social determinants of health that impacted care today? How? (Homelessness, low income, unemployed, alcoholism, drug addiction, transportation, low edu. Level, literacy, decrease access to med. care, alf, rehab)? @ -No Was there de-escalation of care discussed even if they declined (Discuss DNR or withdrawal of care, Hospice)? DNR status @ -No What co-morbidities impacted this encounter? (DM, HTN, Smoking, COPD, CAD, Cancer, CVA, ARF, Chemo, Hep., AIDS, mental health diagnosis, sleep apnea, morbid obesity)? @ -None Was patient admitted / discharged? Hospital course, mention meds given and route , prescriptions, significant lab abnormalities, going to OR and other pertinent info. @ -Discharge 83-year-old female presenting via her daughter due to an episode where she "felt out of it". Patient currently has no complaints. Laboratory studies performed. Labs are significant for an elevated white blood cell count at teen 0.9 however this is improved from prior discharged on 10/14/23 on her white blood cell count at that time was 21.4. Elevated at 22 and creatinine at 1.53 however BUN improved from prior discharge on at that time it was 23. Creatinine at this time however slightly worse from prior discharge at 0.91. UA unremarkable with no evidence of infection. Patient provided IV fluids. At this time patient has no complaints. Discharged home in stable condition. Advised follow-up with her PCP. Discussed return precautions with the patient and daughter who verbalizes agreement. Undiagnosed new problem with uncertain prognosis? @ -No Drug Therapy requiring intensive monitoring for toxicity (Heparin, Nitro, Insulin, Cardizem)? @ -No Were any procedures done? @ -No Diagnosis/symptom? @ -Generalized fatigue Acute, or Chronic, or Acute on Chronic? @ -Acute Uncomplicated (without systemic symptoms) or Complicated (systemic symptoms)? @ -Uncomplicated Side effects of treatment? @ -No Exacerbation, Progression, or Severe Exacerbation? @ -No Poses a threat to life or bodily function? How? (Chest pain, [place], [place], pneumonia, PE, COPD, DKA, ARF, appy, cholecystitis, CVA, Diverticulitis, Homicidal, Suicidal, threat to staff... and all critical care pts) @ -No - Lab Data Result diagrams: 10/26/23 22:49 10/26/23 22:49 Lab Results 10/26/23 10/26/23 10/26/23 Range/Units 22:49 22:49 22:49 WBC 15.9 H (3.8-10.6) k/uL RBC 3.94 (3.80-5.40) m/uL Hgb 11.9 (11.4-16.0) gm/dL Hct 36.6 (34.0-46.0) % MCV 92.7 (80.0-100.0) fL MCH 30.1 (25.0-35.0) pg MCHC 32.5 (31.0-37.0) g/dL RDW 13.9 (11.5-15.5) % Plt Count 362 (150-450) k/uL MPV 7.6 Neutrophils % 84 % Lymphocytes % 10 % Monocytes % 4 % Eosinophils % 1 % Basophils % 0 % Neutrophils # 13.3 H (1.3-7.7) k/uL Lymphocytes # 1.5 (1.0-4.8) k/uL Monocytes # 0.7 (0-1.0) k/uL Eosinophils # 0.2 (0-0.7) k/uL Basophils # 0.1 (0-0.2) k/uL PT 10.0 (10.0-12.5) sec INR 0.9 (<1.2) APTT 23.8 (22.0-30.0) sec Sodium 136 L (137-145) mmol/L Potassium 4.6 (3.5-5.1) mmol/L Chloride 102 (98-107) mmol/L Carbon Dioxide 29 (22-30) mmol/L Anion Gap 5 mmol/L BUN 22 H (7-17) mg/dL Creatinine 1.53 H (0.52-1.04) mg/dL Est GFR (CKD-EPI)AfAm 36 (>60 ml/min/1.73 sqM) Est GFR (CKD-EPI)NonAf 31 (>60 ml/min/1.73 sqM) Glucose 113 H (74-99) mg/dL Calcium 9.2 (8.4-10.2) mg/dL Magnesium 2.0 (1.6-2.3) mg/dL Total Bilirubin 0.8 (0.2-1.3) mg/dL AST 23 (14-36) U/L ALT 27 (4-34) U/L Alkaline Phosphatase 101 (38-126) U/L Troponin I (0.000-0.034) ng/mL Total Protein 5.7 L (6.3-8.2) g/dL Albumin 3.2 L (3.5-5.0) g/dL Urine Color Urine Appearance (Clear) Urine pH (5.0-8.0) Ur Specific [place] (1.001-1.035) Urine Protein (Negative) Urine Glucose (UA) (Negative) Urine Ketones (Negative) Urine Blood (Negative) Urine Nitrite (Negative) Urine Bilirubin (Negative) Urine Urobilinogen (<2.0) mg/dL Ur Leukocyte Esterase (Negative) 10/26/23 10/27/23 Range/Units 22:49 01:12 WBC (3.8-10.6) k/uL RBC (3.80-5.40) m/uL Hgb (11.4-16.0) gm/dL Hct (34.0-46.0) % MCV (80.0-100.0) fL MCH (25.0-35.0) pg MCHC (31.0-37.0) g/dL RDW (11.5-15.5) % Plt Count (150-450) k/uL MPV Neutrophils % % Lymphocytes % % Monocytes % % Eosinophils % % Basophils % % Neutrophils # (1.3-7.7) k/uL Lymphocytes # (1.0-4.8) k/uL Monocytes # (0-1.0) k/uL Eosinophils # (0-0.7) k/uL Basophils # (0-0.2) k/uL PT (10.0-12.5) sec INR (<1.2) APTT (22.0-30.0) sec Sodium (137-145) mmol/L Potassium (3.5-5.1) mmol/L Chloride (98-107) mmol/L Carbon Dioxide (22-30) mmol/L Anion Gap mmol/L BUN (7-17) mg/dL Creatinine (0.52-1.04) mg/dL Est GFR (CKD-EPI)AfAm (>60 ml/min/1.73 sqM) Est GFR (CKD-EPI)NonAf (>60 ml/min/1.73 sqM) Glucose (74-99) mg/dL Calcium (8.4-10.2) mg/dL Magnesium (1.6-2.3) mg/dL Total Bilirubin (0.2-1.3) mg/dL AST (14-36) U/L ALT (4-34) U/L Alkaline Phosphatase (38-126) U/L Troponin I <0.012 (0.000-0.034) ng/mL Total Protein (6.3-8.2) g/dL Albumin (3.5-5.0) g/dL Urine Color Light Yellow Urine Appearance Clear (Clear) Urine pH 7.5 (5.0-8.0) Ur Specific [place] 1.011 (1.001-1.035) Urine Protein Negative (Negative) Urine Glucose (UA) Negative (Negative) Urine Ketones Negative (Negative) Urine Blood Negative (Negative) Urine Nitrite Negative (Negative) Urine Bilirubin Negative (Negative) Urine Urobilinogen <2.0 (<2.0) mg/dL Ur Leukocyte Esterase Negative (Negative) Disposition Clinical Impression: Fatigue Disposition: HOME SELF-CARE Condition: Good Additional Instructions: Please return to the Emergency Department if symptoms worsen or any other concerns. Please follow up with your PCP. Is patient prescribed a controlled substance at d/c from ED?: No Referrals: Ama Frederick MD [Primary Care Provider] - 1-2 days Time of Disposition: 02:01
[2023-10-26 23:06] LABS: Basophils # (A) 0.1 k/uL (0-0.2); Basophils % (A) 0 %; Eosinophils # (A) 0.2 k/uL (0-0.7); Eosinophils % (A) 1 %; HCT 36.6 % (34.0-46.0); HGB 11.9 gm/dL (11.4-16.0); Lymphocytes # (A) 1.5 k/uL (1.0-4.8); Lymphocytes % (A) 10 %; MCH 30.1 pg (25.0-35.0); MCHC 32.5 g/dL (31.0-37.0); MCV 92.7 fL (80.0-100.0); Mean Platelet Volume 7.6; Monocytes # (A) 0.7 k/uL (0-1.0); Monocytes % (A) 4 %; Neutrophils # (A) 13.3 k/uL (1.3-7.7); Neutrophils % (A) 84 %; Platelet Count 362 k/uL (150-450); RBC 3.94 m/uL (3.80-5.40); RDW 13.9 % (11.5-15.5); WBC 15.9 k/uL (3.8-10.6)
[2023-10-26 23:14] LABS: INR 0.9 (<1.2); Partial Thromboplastin Time 23.8 sec (22.0-30.0)
[2023-10-26 23:15] LABS: ALT 27 U/L (4-34); AST 23 U/L (14-36); African American GFR (CKD) 36 (>60 ml/min/1.73 sqM); Albumin 3.2 g/dL (3.5-5.0); Alkaline Phosphatase 101 U/L (38-126); Anion Gap 5 mmol/L; Blood Urea Nitrogen 22 mg/dL (7-17); Calcium 9.2 mg/dL (8.4-10.2); Carbon Dioxide 29 mmol/L (22-30); Chloride 102 mmol/L (98-107); Glucose 113 mg/dL (74-99); Non-African American GFR(CKD) 31 (>60 ml/min/1.73 sqM); Potassium 4.6 mmol/L (3.5-5.1); Sodium 136 mmol/L (137-145); Total Bilirubin 0.8 mg/dL (0.2-1.3); Total Protein 5.7 g/dL (6.3-8.2)
--- NOTE | 2023-10-26 23:30 | XR ---
EXAM: XR Chest, 2 Views CLINICAL HISTORY: ITS.REASON XR Reason: Chest Pain TECHNIQUE: Frontal and lateral views of the chest. COMPARISON: CXR October 11, 2023. FINDINGS: Lungs: Unremarkable. No consolidation. Pleural space: Unremarkable. No pneumothorax. Heart: Unremarkable. No cardiomegaly. Mediastinum: Unremarkable. Normal mediastinal contour. Bones/joints: Posterior fusion hardware. No acute fracture. Vasculature: Calcified aorta. Tubes, lines and devices: Spinal cord stimulator leads. IMPRESSION: No acute findings in the chest.
[2023-10-27 01:24] VITALS: BP 150/89; PULSE 69; RESP 18
[2023-10-27 01:40] LABS: Appearance,Urine Clear (Clear); Bilirubin,Urine Negative (Negative); Blood,Urine Negative (Negative); Color,Urine Light Yellow; Glucose,Urine (UA) Negative (Negative); Ketones,Urine Negative (Negative); Leukocyte Esterase,Urine Negative (Negative); Nitrite,Urine Negative (Negative); PH, Urine 7.5 (5.0-8.0); Protein,Urine Negative (Negative); Specific Gravity,Urine 1.011 (1.001-1.035); Urobilinogen,Urine <2.0 mg/dL (<2.0)
== END 2023-10-27 02:12 | disposition home or self-care (01) ==
LOC: EC 21:53
DX: R53.83 Other fatigue (principal); F41.9 Anxiety disorder, unspecified; E78.5 Hyperlipidemia, unspecified; M19.90 Unspecified osteoarthritis, unspecified site; Z79.1 Long term (current) use of non-steroidal anti-inflammatories (NSAID); Z79.899 Other long term (current) drug therapy; Z79.82 Long term (current) use of aspirin; Z91.040 Latex allergy status; Z88.0 Allergy status to penicillin; Z88.8 Allergy status to other drugs, medicaments and biological substances; Z87.891 Personal history of nicotine dependence
CPT/HCPCS: 36415; 71046; 80053; 81003; 83735; 84484; 85025; 85610; 85730; 93005; 99284

== ENCOUNTER 2024-07-17 18:12 | Emergency (ER) | payer MEDICARE ==
[2024-07-17 18:16] VITALS: TEMP 97.8
--- NOTE | 2024-07-17 18:42 | ED ---
General Adult HPI - General Chief complaint: Altered Mental Status Stated complaint: AMS Time Seen by Provider: 07/17/24 18:18 Source: patient, RN notes reviewed, old records reviewed Mode of arrival: wheelchair Limitations: no limitations - History of Present Illness Initial comments: 84 yo female presenting with confusion today. History is obtained from the patient who has no complaints currently. She does admit that she has had urinary frequency and has not had much to eat or drink today. She also reports constipation but states she had a bowel movement earlier today and this did relieve some of her constipation. No headache. No fever. - Related Data Home Medications Medication Instructions Recorded Confirmed Aspirin [Adult Low Dose Aspirin EC] 81 mg PO DAILY 08/22/16 07/17/24 Atorvastatin [Lipitor] 20 mg PO DAILY 12/22/20 07/17/24 Gabapentin [Neurontin] 300 mg PO HS 01/02/21 07/17/24 Pantoprazole Sodium [Protonix] 20 mg PO DAILY 01/02/21 07/17/24 Zolpidem [Ambien] 5 mg PO HS 01/02/21 07/17/24 Glycopyrrolate [Robinul Forte] 2 mg PO TID 05/19/21 07/17/24 HYDROcodone/APAP 10-325MG [[place] 1 tab PO TID 05/19/21 07/17/24 10-325] Escitalopram [Lexapro] 5 mg PO DAILY 10/11/23 07/17/24 Vitamin C(Unknown Dose) 1 tab PO DAILY@1200 10/11/23 07/17/24 lisinopriL [Zestril] 5 mg PO DAILY 10/11/23 07/17/24 Hydrocortisone Cream 1 applic TOPICAL BID 07/17/24 07/17/24 [Hydrocortisone 2.5% Cream] L.acidoph,Paracasei, B.lactis 1 cap PO DAILY@1200 07/17/24 07/17/24 [Probiotic] Tamsulosin [Flomax] 0.4 mg PO HS 07/17/24 07/17/24 Allergies Allergy/AdvReac Type Severity Reaction Status Date / Time baclofen Allergy Unknown Verified 07/17/24 20:24 latex Allergy Swelling Verified 07/17/24 20:24 Penicillins Allergy Nausea & Verified 07/17/24 20:24 Vomiting donepezil [From Aricept] AdvReac Nausea & Verified 07/17/24 20:24 Vomiting/Lightheaded quinine AdvReac Rapid Verified 07/17/24 20:24 Heart Rate Review of Systems ROS Statement: Those systems with pertinent positive or pertinent negative responses have been documented in the HPI. ROS Other: All systems not noted in ROS Statement are negative. Past Medical History Past Medical History: Hyperlipidemia, Osteoarthritis (OA) Additional Past Medical History / Comment(s): HX SPINAL STENOSIS/OSTEOARTHRITIS. Cervical myelopathy with upper extremity weakness status post anterior cervical decompression and fusion on 12/23/2020. Recurrent urinary tract infections History of Any Multi-Drug Resistant Organisms: None Reported Past Surgical History: Back Surgery Additional Past Surgical History / Comment(s): HX HAND NEUROMA LEFT FOOT/ BILAT CATARACTS REMOVED AND GLAUCOMA, neck surgery Past Anesthesia/Blood Transfusion Reactions: No Reported Reaction Past Psychological History: Anxiety Smoking Status: Former smoker Past Alcohol Use History: None Reported Past Drug Use History: None Reported - Past Family History Mother Family Medical History: Dementia Additional Family Medical History / Comment(s): AGE 97 OF NATURAL CAUSES Brother(s) Family Medical History: Cancer Additional Family Medical History / Comment(s): HX ASBESTOS Sister(s) Family Medical History: CVA/TIA Daughter(s) Additional Family Medical History / Comment(s): ANXIETY/SCOLIOSIS Son(s) Additional Family Medical History / Comment(s): HX HEMOCHROMATOSIS General Exam Limitations: no limitations General appearance: alert, in no apparent distress Head exam: Present: atraumatic, normocephalic Eye exam: Present: normal appearance, PERRL ENT exam: Present: mucous membranes dry Neck exam: Present: normal inspection. Absent: tenderness, meningismus Respiratory exam: Present: normal lung sounds bilaterally. Absent: respiratory distress, wheezes Cardiovascular Exam: Present: regular rate, normal rhythm GI/Abdominal exam: Present: soft. Absent: distended, tenderness, guarding Extremities exam: Present: normal inspection, normal capillary refill Neurological exam: Present: alert, oriented X3, CN II-XII intact. Absent: motor sensory deficit Psychiatric exam: Present: normal affect, normal mood Skin exam: Present: warm, dry, intact Course Vital Signs 07/17/24 18:13 Temperature 97.8 F Pulse Rate 95 Respiratory 18 Rate Blood Pressure 166/95 O2 Sat by Pulse 95 Oximetry Medical Decision Making - Medical Decision Making Was pt. sent in by a medical professional or institution (JOHNNY Ivory, [employer], urgent care, hospital, or usp...) When possible be specific @ -No Did you speak to anyone other than the patient for history (EMS, parent, family, police, friend...)? What history was obtained from this source @ -No Did you review nursing and triage notes (agree or disagree)? Why? @ -I reviewed and agree with nursing and triage notes Were old charts reviewed (outside hosp., previous admission, EMS record, old EKG, old radiological studies, urgent care reports/EKG's, usp records)? Report findings @ -No old charts were reviewed Differential Diagnosis (chest pain, altered mental status, abdominal pain women, abdominal pain men, vaginal bleeding, weakness, fever, dyspnea, syncope, headache, dizziness, GI bleed, back pain, seizure, CVA, palpatations, mental health, musculoskeletal)? @ -Not applicable EKG interpreted by me (3pts min.). @ -As above X-rays interpreted by me (1pt min.). @KUB negative for acute process, no constipation CT interpreted by me (1pt min.). @ -None done U/S interpreted by me (1pt. min.). @ -None done What testing was considered but not performed or refused? (CT, X-rays, U/S, labs)? Why? @ -None What meds were considered but not given or refused? Why? @ -None Did you discuss the management of the patient with other professionals (professionals i.e. JOHNNY Ivory, [employer], lab, RT, psych nurse, outreach and education social worker, regional company hazmat tanker driver, teacher, hazard mitigation officer, rn field case manager)? Give summary @ -No Was smoking cessation discussed for >3mins.? @ -No Was critical care preformed (if so, how long)? @ -No Were there social determinants of health that impacted care today? How? (Homelessness, low income, unemployed, alcoholism, drug addiction, transportation, low edu. Level, literacy, decrease access to med. care, [place] [facility], rehab)? @ -No Was there de-escalation of care discussed even if they declined (Discuss DNR or withdrawal of care, Hospice)? DNR status @ -No What co-morbidities impacted this encounter? (DM, HTN, Smoking, COPD, CAD, Cancer, CVA, ARF, Chemo, Hep., AIDS, mental health diagnosis, sleep apnea, mor bid obesity)? @ -None Was patient admitted / discharged? Hospital course, mention meds given and ro [place], prescriptions, significant lab abnormalities, going to OR and other pertinent info. @ -84 yo female presenting with an episode of confusion earlier in the day, concern for UTI. Patient does not have a UTI but she does have some urinary retention. Hernandez catheter is placed in the emergency department. Patient is scheduled for urological procedure tomorrow and would like to maintain this juan ointment. She is alert and oriented with stable vitals at the time my evaluation. She has normal CBC, normal CMP. Patient stable for discharge at this time with return parameters. Undiagnosed new problem with uncertain prognosis? @ -No Drug Therapy requiring intensive monitoring for toxicity (Heparin, Nitro, Insulin, Cardizem)? @ -No Were any procedures done? @ -No Diagnosis/symptom? @ -deydration, urinary retention, confusion resolved Acute, or Chronic, or Acute on Chronic? @ -acute Uncomplicated (without systemic symptoms) or Complicated (systemic symptoms)? @ -Default Side effects of treatment? @ -No Exacerbation, Progression, or Severe Exacerbation? @ -No Poses a threat to life or bodily function? How? (Chest pain, [place], [place], pneumonia, PE, COPD, DKA, ARF, appy, cholecystitis, CVA, Diverticulitis, Homicidal, Suicidal, threat to staff... and all critical care pts) @ -[low risk - Lab Data Result diagrams: 07/17/24 20:33 Lab Results 07/17/24 07/17/24 Range/Units 19:08 20:33 WBC 10.7 H (3.8-10.6) k/uL RBC 4.15 (3.80-5.40) m/uL Hgb 12.1 (11.4-16.0) gm/dL Hct 37.8 (34.0-46.0) % MCV 91.1 (80.0-100.0) fL MCH 29.2 (25.0-35.0) pg MCHC 32.0 (31.0-37.0) g/dL RDW 12.7 (11.5-15.5) % Plt Count 307 (150-450) k/uL MPV 6.8 Neutrophils % 67 % Lymphocytes % 23 % Monocytes % 5 % Eosinophils % 2 % Basophils % 0 % Neutrophils # 7.2 (1.3-7.7) k/uL Lymphocytes # 2.5 (1.0-4.8) k/uL Monocytes # 0.5 (0-1.0) k/uL Eosinophils # 0.2 (0-0.7) k/uL Basophils # 0.0 (0-0.2) k/uL Urine Color Colorless Urine Appearance Clear (Clear) Urine pH 7.0 (5.0-8.0) Ur Specific [place] 1.004 (1.001-1.035) Urine Protein Negative (Negative) Urine Glucose (UA) Negative (Negative) Urine Ketones Negative (Negative) Urine Blood Negative (Negative) Urine Nitrite Negative (Negative) Urine Bilirubin Negative (Negative) Urine Urobilinogen <2.0 (<2.0) mg/dL Ur Leukocyte Esterase Negative (Negative) Disposition Clinical Impression: Dehydration Disposition: HOME SELF-CARE Condition: Good Instructions (If sedation given, give patient instructions): Dehydration (ED), Acute Urinary Retention in Women (ED) Is patient prescribed a controlled substance at d/c from ED?: No Referrals: Ama Frederick MD [Primary Care Provider] - 1-2 days Jesus Morin MD [STAFF PHYSICIAN] - 1-2 days Time of Disposition: 21:06
[2024-07-17] MEDS: SODIUM CHLORIDE 0.9% 1,000 ML IV ONE (19:21)
[2024-07-17 19:30] LABS: Appearance,Urine Clear (Clear); Bilirubin,Urine Negative (Negative); Blood,Urine Negative (Negative); Color,Urine Colorless; Glucose,Urine (UA) Negative (Negative); Ketones,Urine Negative (Negative); Leukocyte Esterase,Urine Negative (Negative); Nitrite,Urine Negative (Negative); Protein,Urine Negative (Negative); Specific Gravity,Urine 1.004 (1.001-1.035); Urobilinogen,Urine <2.0 mg/dL (<2.0)
--- NOTE | 2024-07-17 19:40 | XR ---
EXAMINATION TYPE: XR KUB DATE OF EXAM: 07/17/2024 7:29 PM CLINICAL INDICATION:Female, 84 years old with history of constipation; [facility] COMPARISON: None. TECHNIQUE: Supine radiographic view/s of the abdomen/pelvis obtained. FINDINGS: The bowel gas pattern is nonspecific, likely nonobstructive with small to moderate amount of stool an d gas in colon. Mild gaseous prominence of bowel loops otherwise. No gross evidence of organomegaly. No evidence of pneumoperitoneum in the limitations of supine technique. No pathologic calcifications are seen. Osseous structures appear grossly intact. Multilevel fusion hardware. Left-sided neurostimulator ove r the pelvis with lead tips beyond the [id number]. IMPRESSION: Nonspecific, likely nonobstructive bowel gas pattern. If concern persists, consider follow-up radiogr aphs and/or CT. [facility], , 07/17/2024 7:37 PM
[2024-07-17] MEDS: HYDROcodone/APAP 10-325MG 1 EACH TAB PO ONE (19:47)
[2024-07-17 20:59] LABS: Basophils % (A) 0 %; Eosinophils # (A) 0.2 k/uL (0-0.7); Eosinophils % (A) 2 %; HCT 37.8 % (34.0-46.0); HGB 12.1 gm/dL (11.4-16.0); Lymphocytes # (A) 2.5 k/uL (1.0-4.8); Lymphocytes % (A) 23 %; MCH 29.2 pg (25.0-35.0); MCV 91.1 fL (80.0-100.0); Mean Platelet Volume 6.8; Monocytes # (A) 0.5 k/uL (0-1.0); Monocytes % (A) 5 %; Neutrophils # (A) 7.2 k/uL (1.3-7.7); Neutrophils % (A) 67 %; Platelet Count 307 k/uL (150-450); RBC 4.15 m/uL (3.80-5.40); RDW 12.7 % (11.5-15.5); WBC 10.7 k/uL (3.8-10.6)
[2024-07-17 21:03] LABS: ALT 11 U/L (4-34); AST 20 U/L (14-36); African American GFR (CKD) 47 (>60 ml/min/1.73 sqM); Albumin 3.7 g/dL (3.5-5.0); Alkaline Phosphatase 121 U/L (38-126); Anion Gap 5 mmol/L; Blood Urea Nitrogen 15 mg/dL (7-17); Calcium 9.1 mg/dL (8.4-10.2); Carbon Dioxide 28 mmol/L (22-30); Chloride 107 mmol/L (98-107); Glucose 93 mg/dL (74-99); Magnesium 1.9 mg/dL (1.6-2.3); Non-African American GFR(CKD) 41 (>60 ml/min/1.73 sqM); Potassium 3.8 mmol/L (3.5-5.1); Sodium 140 mmol/L (137-145); Total Bilirubin 0.8 mg/dL (0.2-1.3); Total Protein 5.9 g/dL (6.3-8.2)
[2024-07-17 21:47] VITALS: BP 110/74; PULSE 60; RESP 16
== END 2024-07-17 21:47 | disposition home or self-care (01) ==
LOC: EC 18:12
CPT/HCPCS: 36415; 51798; 74018; 80053; 81003; 83735; 85025; 99285

== ENCOUNTER 2024-08-29 12:21 | Emergency (ER) | payer MEDICARE ==
[2024-08-29 12:45] VITALS: RESP 18
--- NOTE | 2024-08-29 13:08 | ED ---
Abdominal Pain HPI - General Chief Complaint: Weakness Stated Complaint: Post-op pain,Fall Time Seen by Provider: 08/29/24 13:07 Source: patient, family, RN notes reviewed, old records reviewed, Caregiver Mode of arrival: wheelchair Limitations: no limitations - History of Present Illness Initial Comments: This is an 84-year-old female to the ER for evaluation. Patient just had urologic surgery with Dr. Morin, has been having increasing abdominal pain that was new today, not postoperatively. Patient had surgery about a week ago she originally had a Hernandez catheter until Monday that was removed and she has been urinating but minimal per family. No fevers increasing pain no burning with urination MD Complaint: abdominal pain, other (Operative pain) -: days(s) Location: suprapubic Radiation: suprapubic Migration to: suprapubic Severity: moderate Severity scale (1-10): 7 Quality: aching, fullness Consistency: constant, intermittent Improves With: nothing Worsens With: nothing Associated Symptoms: nausea Treatments Prior to Arrival: other (0) - Related Data Home Medications Medication Instructions Recorded Confirmed Aspirin [Adult Low Dose Aspirin EC] 81 mg PO DAILY 08/22/16 07/17/24 Atorvastatin [Lipitor] 20 mg PO DAILY 12/22/20 07/17/24 Gabapentin [Neurontin] 300 mg PO HS 01/02/21 07/17/24 Pantoprazole Sodium [Protonix] 20 mg PO DAILY 01/02/21 07/17/24 Zolpidem [Ambien] 5 mg PO HS 01/02/21 07/17/24 Glycopyrrolate [Robinul Forte] 2 mg PO TID 05/19/21 07/17/24 HYDROcodone/APAP 10-325MG [[place] 1 tab PO TID 05/19/21 07/17/24 10-325] Escitalopram [Lexapro] 5 mg PO DAILY 10/11/23 07/17/24 Vitamin C(Unknown Dose) 1 tab PO DAILY@1200 10/11/23 07/17/24 lisinopriL [Zestril] 5 mg PO DAILY 10/11/23 07/17/24 Hydrocortisone Cream 1 applic TOPICAL BID 07/17/24 07/17/24 [Hydrocortisone 2.5% Cream] L.acidoph,Paracasei, B.lactis 1 cap PO DAILY@1200 07/17/24 07/17/24 [Probiotic] Tamsulosin [Flomax] 0.4 mg PO HS 07/17/24 07/17/24 Allergies Allergy/AdvReac Type Severity Reaction Status Date / Time baclofen Allergy Unknown Verified 08/29/24 12:45 latex Allergy Swelling Verified 08/29/24 12:45 Penicillins Allergy Nausea & Verified 08/29/24 12:45 Vomiting donepezil [From Aricept] AdvReac Nausea & Verified 08/29/24 12:45 Vomiting/Lightheaded quinine AdvReac Rapid Verified 08/29/24 12:45 Heart Rate Review of Systems ROS Statement: Those systems with pertinent positive or pertinent negative responses have been documented in the HPI. ROS Other: All systems not noted in ROS Statement are negative. Past Medical History Past Medical History: Hyperlipidemia, Osteoarthritis (OA) Additional Past Medical History / Comment(s): HX SPINAL STENOSIS/OSTEOARTHRITIS. Cervical myelopathy with upper extremity weakness status post anterior cervical decompression and fusion on 12/23/2020. Recurrent urinary tract infections History of Any Multi-Drug Resistant Organisms: None Reported Past Surgical History: Back Surgery Additional Past Surgical History / Comment(s): HX HAND NEUROMA LEFT FOOT/ BILAT CATARACTS REMOVED AND GLAUCOMA, neck surgery Past Anesthesia/Blood Transfusion Reactions: No Reported Reaction Past Psychological History: Anxiety Smoking Status: Former smoker Past Alcohol Use History: None Reported Past Drug Use History: None Reported - Past Family History Mother Family Medical History: Dementia Additional Family Medical History / Comment(s): AGE 97 OF NATURAL CAUSES Brother(s) Family Medical History: Cancer Additional Family Medical History / Comment(s): HX ASBESTOS Sister(s) Family Medical History: CVA/TIA Daughter(s) Additional Family Medical History / Comment(s): ANXIETY/SCOLIOSIS Son(s) Additional Family Medical History / Comment(s): HX HEMOCHROMATOSIS General Exam Limitations: no limitations General appearance: alert, in no apparent distress Head exam: Present: atraumatic, normocephalic, normal inspection Eye exam: Present: normal appearance, PERRL, EOMI. Absent: scleral icterus, conjunctival injection, periorbital swelling ENT exam: Present: normal exam, mucous membranes moist Neck exam: Present: normal inspection. Absent: tenderness, meningismus, lymphadenopathy Respiratory exam: Present: normal lung sounds bilaterally. Absent: respiratory distress, wheezes, rales, rhonchi, stridor Cardiovascular Exam: Present: regular rate, normal rhythm, normal heart sounds. Absent: systolic murmur, diastolic murmur, rubs, gallop, clicks GI/Abdominal exam: Present: soft, normal bowel sounds. Absent: distended, tenderness, guarding, rebound, rigid Extremities exam: Present: normal inspection, full ROM, normal capillary refill. Absent: tenderness, pedal edema, joint swelling, calf tenderness Back exam: Present: normal inspection Neurological exam: Present: alert, oriented X3, CN II-XII intact Psychiatric exam: Present: normal affect, normal mood Skin exam: Present: warm, dry, intact, normal color. Absent: rash Course Vital Signs 08/29/24 08/29/24 12:38 15:32 Temperature 98 F Pulse Rate 72 94 Respiratory 18 18 Rate Blood Pressure 83/67 150/83 O2 Sat by Pulse 98 92 L Oximetry - Reevaluation(s) Reevaluation #1: 08/29/24 13:14 Records reviewed Reevaluation #4: Was pt. sent in by a medical professional or institution (, PA, [employer], urgent care, hospital, or senior care...) When possible be specific @ -no Did you speak to anyone other than the patient for history (EMS, parent, family, police, friend...)? What history was obtained from this source @ -no Did you review nursing and triage notes (agree or disagree)? Why? @ -agree Are old charts reviewed (outside hosp., previous admission, EMS record, old EKG, old radiological studies, urgent care reports/EKG's, senior care records)? Report findings @ -yes Differential Diagnosis (chest pain, altered mental status, abdominal pain women, abdominal pain men, vaginal bleeding, weakness, fever, dyspnea, syncope, headache, dizziness, GI bleed, back pain, seizure, CVA, palpatations, mental h ealth, musculoskeletal)? @ -prior EKG interpreted by me (3pts min.). @ -yes X-rays interpreted by me (1pt min.). @ -yes negative for acute disease CT interpreted by me (1pt min.). @ -no U/S interpreted by me (1pt. min.). @ -no What testing was considered but not performed or refused? (CT, X-rays, U/S, labs)? Why? @ -none What meds were considered but not given or refused? Why? @ -none Did you discuss the management of the patient with other professionals (professionals i.e. , PA, [employer] TEND[employer], lab, RT, psych nurse, manager social services, emg technician, teacher, contract officer, pillowcase folder)? Give summary @ -no Was smoking cessation discussed for >3mins.? @ -no Was critical care preformed (if so, how long)? @ -no Were there social determinants of health that impacted care today? How? (Homelessness, low income, unemployed, alcoholism, drug addiction, transportation, low edu. Level, literacy, decrease access to med. care, intermediate, rehab)? @ -none Was there de-escalation of care discussed even if they declined (Discuss DNR or withdrawal of care, Hospice)? DNR status @ -no What co-morbidities impacted this encounter? (DM, HTN, Smoking, COPD, CAD, Cancer, CVA, ARF, Chemo, Hep., AIDS, mental health diagnosis, sleep apnea, morbid obesity)? @ -none Was patient admitted / discharged? Hospital course, mention meds given and route, prescriptions, significant lab abnormalities, going to OR and other p ertinent info. @ - Undiagnosed new problem with uncertain prognosis? @ -no Drug Therapy requiring intensive monitoring for toxicity (Heparin, Nitro, Insulin, Cardizem)? @ -no Were any procedures done? @ -no Diagnosis/symptom? @ - Acute, or Chronic, or Acute on Chronic? @ -Acute Uncomplicated (without systemic symptoms) or Complicated (systemic symptoms)? @ -Complicated Side effects of treatment? @ -no Exacerbation, Progression, or Severe Exacerbation? @ -exacerbation Poses a threat to life or bodily function? How? (Chest pain, [place], [place], pneumonia, PE, COPD, DKA, ARF, appy, cholecystitis, CVA, Diverticulitis, Homicidal, Suicidal, threat to staff... and all critical care pts) @ -yes Reevaluation #5: Differential Abdominal Pain Women: Appendicitis, Cholecystitis, diverticulosis, ischemic bowel, pancreatitis, hepatitis, UTI, gastroenteritis, AAA, incarcerated hernia, bowel obstruction, constipation, inflammatory bowel, hepatitis, peptic ulcer disease, splenic infarction, perforated viscus, vulvitis, ovarian torsion, PID, kidney stone, placenta abruption, this is not meant to be an all-inclusive list Medical Decision Making - Lab Data Result diagrams: 08/29/24 13:20 08/29/24 13:20 Lab Results 08/29/24 08/29/24 08/29/24 Range/Units 13:20 13:20 13:20 WBC 15.6 H (3.8-10.6) k/uL RBC 4.31 (3.80-5.40) m/uL Hgb 12.7 (11.4-16.0) gm/dL Hct 39.5 (34.0-46.0) % MCV 91.5 (80.0-100.0) fL MCH 29.5 (25.0-35.0) pg MCHC 32.2 (31.0-37.0) g/dL RDW 13.2 (11.5-15.5) % Plt Count 300 (150-450) k/uL MPV 6.7 Neutrophils % 84 % Lymphocytes % 10 % Monocytes % 3 % Eosinophils % 2 % Basophils % 0 % Neutrophils # 13.2 H (1.3-7.7) k/uL Lymphocytes # 1.6 (1.0-4.8) k/uL Monocytes # 0.5 (0-1.0) k/uL Eosinophils # 0.2 (0-0.7) k/uL Basophils # 0.0 (0-0.2) k/uL PT 10.3 (10.0-12.5) sec INR 0.9 (<1.2) APTT 25.8 (22.0-30.0) sec Sodium 138 (137-145) mmol/L Potassium 4.0 (3.5-5.1) mmol/L Chloride 102 (98-107) mmol/L Carbon Dioxide 32 H (22-30) mmol/L Anion Gap 4 mmol/L BUN 17 (7-17) mg/dL Creatinine 1.46 H (0.52-1.04) mg/dL Est GFR (CKD-EPI)AfAm 37 (>60 ml/min/1.73 sqM) Est GFR (CKD-EPI)NonAf 32 (>60 ml/min/1.73 sqM) Glucose 111 H (74-99) mg/dL Plasma Lactic Acid Alan (0.7-2.0) mmol/L Calcium 9.1 (8.4-10.2) mg/dL Phosphorus 4.0 (2.5-4.5) mg/dL Magnesium 2.0 (1.6-2.3) mg/dL Total Bilirubin 0.8 (0.2-1.3) mg/dL AST 17 (14-36) U/L ALT 11 (4-34) U/L Alkaline Phosphatase 114 (38-126) U/L Troponin I (0.000-0.034) ng/mL Total Protein 6.0 L (6.3-8.2) g/dL Albumin 3.6 (3.5-5.0) g/dL Urine Color Urine Appearance (Clear) Urine pH (5.0-8.0) Ur Specific [place] (1.001-1.035) Urine Protein (Negative) Urine Glucose (UA) (Negative) Urine Ketones (Negative) Urine Blood (Negative) Urine Nitrite (Negative) Urine Bilirubin (Negative) Urine Urobilinogen (<2.0) mg/dL Ur Leukocyte Esterase (Negative) Urine RBC (0-5) /hpf Urine WBC (0-5) /hpf 08/29/24 08/29/24 08/29/24 Range/Units 13:20 13:20 14:33 WBC (3.8-10.6) k/uL RBC (3.80-5.40) m/uL Hgb (11.4-16.0) gm/dL Hct (34.0-46.0) % MCV (80.0-100.0) fL MCH (25.0-35.0) pg MCHC (31.0-37.0) g/dL RDW (11.5-15.5) % Plt Count (150-450) k/uL MPV Neutrophils % % Lymphocytes % % Monocytes % % Eosinophils % % Basophils % % Neutrophils # (1.3-7.7) k/uL Lymphocytes # (1.0-4.8) k/uL Monocytes # (0-1.0) k/uL Eosinophils # (0-0.7) k/uL Basophils # (0-0.2) k/uL PT (10.0-12.5) sec INR (<1.2) APTT (22.0-30.0) sec Sodium (137-145) mmol/L Potassium (3.5-5.1) mmol/L Chloride (98-107) mmol/L Carbon Dioxide (22-30) mmol/L Anion Gap mmol/L BUN (7-17) mg/dL Creatinine (0.52-1.04) mg/dL Est GFR (CKD-EPI)AfAm (>60 ml/min/1.73 sqM) Est GFR (CKD-EPI)NonAf (>60 ml/min/1.73 sqM) Glucose (74-99) mg/dL Plasma Lactic Acid Alan 0.9 (0.7-2.0) mmol/L Calcium (8.4-10.2) mg/dL Phosphorus (2.5-4.5) mg/dL Magnesium (1.6-2.3) mg/dL Total Bilirubin (0.2-1.3) mg/dL AST (14-36) U/L ALT (4-34) U/L Alkaline Phosphatase (38-126) U/L Troponin I <0.012 (0.000-0.034) ng/mL Total Protein (6.3-8.2) g/dL Albumin (3.5-5.0) g/dL Urine Color Colorless Urine Appearance Clear (Clear) Urine pH 7.0 (5.0-8.0) Ur Specific [place] 1.011 (1.001-1.035) Urine Protein Negative (Negative) Urine Glucose (UA) Negative (Negative) Urine Ketones Negative (Negative) Urine Blood Negative (Negative) Urine Nitrite Positive H (Negative) Urine Bilirubin Negative (Negative) Urine Urobilinogen <2.0 (<2.0) mg/dL Ur Leukocyte Esterase Small H (Negative) Urine RBC 1 (0-5) /hpf Urine WBC 11 H (0-5) /hpf - EKG Data -: EKG Interpreted by Me (EKG is sinus 86 ME 171 QRS 91 QTc 408) Disposition Clinical Impression: Urinary retention, Abdominal pain, Postoperative pain Disposition: HOME SELF-CARE Condition: Good Instructions (If sedation given, give patient instructions): Acute Urinary Retention in Women (ED), Chronic Urinary Retention in Women (ED) Is patient prescribed a controlled substance at d/c from ED?: No Referrals: Ama Frederick MD [Primary Care Provider] - 1-2 days Jesus Morin MD [STAFF PHYSICIAN] - 1-2 days Time of Disposition: 16:00
[2024-08-29 13:31] LABS: Basophils % (A) 0 %; Eosinophils # (A) 0.2 k/uL (0-0.7); Eosinophils % (A) 2 %; HCT 39.5 % (34.0-46.0); HGB 12.7 gm/dL (11.4-16.0); Lymphocytes # (A) 1.6 k/uL (1.0-4.8); Lymphocytes % (A) 10 %; MCH 29.5 pg (25.0-35.0); MCHC 32.2 g/dL (31.0-37.0); MCV 91.5 fL (80.0-100.0); Mean Platelet Volume 6.7; Monocytes # (A) 0.5 k/uL (0-1.0); Monocytes % (A) 3 %; Neutrophils # (A) 13.2 k/uL (1.3-7.7); Neutrophils % (A) 84 %; Platelet Count 300 k/uL (150-450); RBC 4.31 m/uL (3.80-5.40); RDW 13.2 % (11.5-15.5); WBC 15.6 k/uL (3.8-10.6)
[2024-08-29 13:43] LABS: ALT 11 U/L (4-34); AST 17 U/L (14-36); African American GFR (CKD) 37 (>60 ml/min/1.73 sqM); Albumin 3.6 g/dL (3.5-5.0); Alkaline Phosphatase 114 U/L (38-126); Anion Gap 4 mmol/L; Blood Urea Nitrogen 17 mg/dL (7-17); Calcium 9.1 mg/dL (8.4-10.2); Carbon Dioxide 32 mmol/L (22-30); Chloride 102 mmol/L (98-107); Glucose 111 mg/dL (74-99); Non-African American GFR(CKD) 32 (>60 ml/min/1.73 sqM); Sodium 138 mmol/L (137-145); Total Bilirubin 0.8 mg/dL (0.2-1.3)
[2024-08-29 13:55] LABS: INR 0.9 (<1.2); Partial Thromboplastin Time 25.8 sec (22.0-30.0); Prothrombin Time 10.3 sec (10.0-12.5)
--- NOTE | 2024-08-29 14:08 | CT ---
EXAMINATION TYPE: CT abdomen pelvis wo con CT DLP: 403..6 mGycm, Automated exposure control for dose reduction was used. DATE OF EXAM: 08/29/2024 1:58 PM COMPARISON: KUB radiograph 07/17/2024 CLINICAL INDICATION:Female, 84 years old with history of pain; Pain weakness TECHNIQUE: Standard CT of the abdomen and pelvis without IV or oral contrast. Lack of IV or oral co ntrast limits evaluation of solid and hollow organ viscera. Coronal and sagittal reformats were perfo rmed. FINDINGS: LOWER CHEST: Trace right pleural effusion. Minimal dependent lateral lower lobe subsegmental atelecta sis. Aortic valve and mitral annulus calcifications. Coronary calcifications. ABDOMEN LIVER: Unremarkable noncontrast appearance. GALLBLADDER AND BILE DUCTS: Grossly unremarkable noncontrast appearance. PANCREAS: Unremarkable noncontrast appearance. SPLEEN: Unremarkable noncontrast appearance. ADRENAL GLANDS: Unremarkable noncontrast appearance.. KIDNEYS AND URETERS: No evidence of hydronephrosis or renal calculus. Renal vascular calcifications. PELVIS BLADDER: Distended urinary bladder. REPRODUCTIVE: Unremarkable noncontrast appearance ABDOMEN & PELVIS STOMACH AND BOWEL: Stomach and duodenum are [id number] colonic stool burden. No foc al bowel wall thickening or surrounding inflammatory changes. The appendix is not definitively visual ized however no significant inflammatory changes within the right lower quadrant. No evidence of abdoulaye l obstruction. PERITONEUM: No evidence of pneumoperitoneum or free fluid. VASCULATURE: Moderate atherosclerotic calcifications are present throughout the abdominal aorta and i ts branches. No evidence of aortic aneurysm. MUSCULOSKELETAL: No acute osseous abnormalities. Degenerative changes of the pubic symphysis. Remote bilateral inferior and left superior pubic rami fractures. Diffuse bone demineralization. Degenerativ e changes of the SI joints. Extensive postsurgical changes of the visualized thoracolumbar spine from T12 through S1 with bilateral pedicular screws and rods and laminectomy changes. This creates streak artifact which limits evaluation. Spinal stimulator leads into the spinal canal at the T10-T11 inter spinous space and course superiorly. Remote compression deformities of the lumbar spine. Levocurvatur e of the lumbar spine. LYMPH NODES: No gross evidence for lymphadenopathy. SOFT TISSUE/ABDOMINAL WALL: Left gluteal generator power pack for spinal stimulator leads identified. IMPRESSION: 1. Distended urinary bladder. Consider Hernandez catheter placement if patient cannot void. 2. Moderate colonic stool burden. 3. Trace right pleural effusion with associated atelectasis. [facility], , 08/29/2024 2:06 PM
[2024-08-29] MEDS: SODIUM CHLORIDE 0.9% 500 ML 500 ML IV STA (14:27)
[2024-08-29 15:09] LABS: Appearance,Urine Clear (Clear); Bilirubin,Urine Negative (Negative); Blood,Urine Negative (Negative); Color,Urine Colorless; Glucose,Urine (UA) Negative (Negative); Ketones,Urine Negative (Negative); Leukocyte Esterase,Urine Small (Negative); Nitrite,Urine Positive (Negative); Protein,Urine Negative (Negative); RBC,Urine 1 /hpf (0-5); Specific Gravity,Urine 1.011 (1.001-1.035); Urobilinogen,Urine <2.0 mg/dL (<2.0); WBC,Urine 11 /hpf (0-5)
[2024-08-29 16:38] VITALS: BP 146/80; PULSE 86; TEMP 98
== END 2024-08-29 16:38 | disposition home or self-care (01) ==
LOC: EC 12:21
DX: G89.18 Other acute postprocedural pain (principal); R10.30 Lower abdominal pain, unspecified; R33.9 Retention of urine, unspecified; Z88.0 Allergy status to penicillin; Z91.040 Latex allergy status; Z88.8 Allergy status to other drugs, medicaments and biological substances; Z87.891 Personal history of nicotine dependence
CPT/HCPCS: 99285; 96365; 96361; 51798; 36415; 93005; 80053; 83605; 83735; 84100; 84484; 85025; 85610; 85730; 81001; 74176; 51701; J0696

== ENCOUNTER 2024-08-31 12:09 | Inpatient (IN) | payer MEDICARE ==
--- NOTE | 2024-08-31 13:28 | ED ---
General Adult HPI - General Chief complaint: Recheck/Abnormal Lab/Rx Stated complaint: Recheck UTI Time Seen by Provider: 08/31/24 12:30 Source: patient, RN notes reviewed, old records reviewed Mode of arrival: ambulatory Limitations: no limitations - History of Present Illness Initial comments: This is an 84-year-old female who presents to the emergency department with her daughter who gives all of the history. Patient daughter states they were here yesterday diagnosed with urinary tract infection and went home after getting some antibiotics. Daughter states she has been confused for 3 days and this morning the patient is no better and she is now complaining of some right sided hip pain. Daughter thought maybe this was secondary to the urinary tract infection. Daughter also states that the CAT scan yesterday did not find anything in that area. Patient herself is altered so she is not giving any of the history at this time - Related Data Home Medications Medication Instructions Recorded Confirmed Aspirin [Adult Low Dose Aspirin EC] 81 mg PO DAILY 08/22/16 07/17/24 Atorvastatin [Lipitor] 20 mg PO DAILY 12/22/20 07/17/24 Gabapentin [Neurontin] 300 mg PO HS 01/02/21 07/17/24 Pantoprazole Sodium [Protonix] 20 mg PO DAILY 01/02/21 07/17/24 Zolpidem [Ambien] 5 mg PO HS 01/02/21 07/17/24 Glycopyrrolate [Robinul Forte] 2 mg PO TID 05/19/21 07/17/24 HYDROcodone/APAP 10-325MG [[place] 1 tab PO TID 05/19/21 07/17/24 10-325] Escitalopram [Lexapro] 5 mg PO DAILY 10/11/23 07/17/24 Vitamin C(Unknown Dose) 1 tab PO DAILY@1200 10/11/23 07/17/24 lisinopriL [Zestril] 5 mg PO DAILY 10/11/23 07/17/24 Hydrocortisone Cream 1 applic TOPICAL BID 07/17/24 07/17/24 [Hydrocortisone 2.5% Cream] L.acidoph,Paracasei, B.lactis 1 cap PO DAILY@1200 07/17/24 07/17/24 [Probiotic] Tamsulosin [Flomax] 0.4 mg PO HS 07/17/24 07/17/24 Allergies Allergy/AdvReac Type Severity Reaction Status Date / Time baclofen Allergy Unknown Verified 08/31/24 12:22 latex Allergy Swelling Verified 08/31/24 12:22 Penicillins Allergy Nausea & Verified 08/31/24 12:22 Vomiting donepezil [From Aricept] AdvReac Nausea & Verified 08/31/24 12:22 Vomiting/Lightheaded quinine AdvReac Rapid Verified 08/31/24 12:22 Heart Rate Review of Systems ROS Statement: Those systems with pertinent positive or pertinent negative responses have been documented in the HPI. ROS Other: All systems not noted in ROS Statement are negative. Past Medical History Past Medical History: Hyperlipidemia, Osteoarthritis (OA) Additional Past Medical History / Comment(s): HX SPINAL STENOSIS/OSTEOARTHRITIS. Cervical myelopathy with upper extremity weakness status post anterior cervical decompression and fusion on 12/23/2020. Recurrent urinary tract infections History of Any Multi-Drug Resistant Organisms: None Reported Past Surgical History: Back Surgery Additional Past Surgical History / Comment(s): HX HAND NEUROMA LEFT FOOT/ BILAT CATARACTS REMOVED AND GLAUCOMA, neck surgery Past Anesthesia/Blood Transfusion Reactions: No Reported Reaction Past Psychological History: Anxiety Smoking Status: Former smoker Past Alcohol Use History: None Reported Past Drug Use History: None Reported - Past Family History Mother Family Medical History: Dementia Additional Family Medical History / Comment(s): AGE 97 OF NATURAL CAUSES Brother(s) Family Medical History: Cancer Additional Family Medical History / Comment(s): HX ASBESTOS Sister(s) Family Medical History: CVA/TIA Daughter(s) Additional Family Medical History / Comment(s): ANXIETY/SCOLIOSIS Son(s) Additional Family Medical History / Comment(s): HX HEMOCHROMATOSIS General Exam - General Exam Comments Initial Comments: GENERAL: Patient is well-developed and well-nourished. Patient is nontoxic and well- hydrated and is in mild distress. ENT: Neck is soft and supple. No significant lymphadenopathy is noted. Oropharynx is clear. Moist mucous membranes. Neck has full range of motion without eliciting any pain. EYES: The sclera were anicteric and conjunctiva were pink and moist. Extraocular movements were intact and pupils were equal round and reactive to light. Eyelids were unremarkable. PULMONARY: Unlabored respirations. Good breath sounds bilaterally. No audible rales rhonchi or wheezing was noted. CARDIOVASCULAR: There is a regular rate and rhythm without any murmurs gallops or rubs. ABDOMEN: Soft and nontender with normal bowel sounds. No palpable organomegaly was noted. There is no palpable pulsatile mass. SKIN: Skin is clear with no lesions or rashes and otherwise unremarkable. NEUROLOGIC: Patient is alert and oriented x 2. Cranial nerves II through XII are grossly intact. Motor and sensory are also intact. Normal speech, volume and content. Symmetrical smile. MUSCULOSKELETAL: Normal extremities with adequate strength and full range of motion. LYMPHATICS: No significant lymphadenopathy is noted PSYCHIATRIC: Normal psychiatric evaluation. Limitations: no limitations Course Vital Signs 08/31/24 08/31/24 08/31/24 12:18 14:25 14:35 Temperature 98 F Pulse Rate 95 154 H 148 H Respiratory 18 18 18 Rate Blood Pressure 114/78 76/52 73/53 O2 Sat by Pulse 96 91 L 99 Oximetry 08/31/24 08/31/24 08/31/24 14:42 14:50 15:16 Temperature Pulse Rate 114 H 105 H 107 H Respiratory 6 L 12 18 Rate Blood Pressure 127/78 117/77 139/96 O2 Sat by Pulse 99 100 99 Oximetry 08/31/24 15:56 Temperature Pulse Rate 106 H Respiratory 16 Rate Blood Pressure 178/109 O2 Sat by Pulse 96 Oximetry Procedures - Procedures Initial comment: Patient's heart rate was approximately 150 beats a minute and blood pressure was consistently in the 70s and once in the 60s and she was becoming lethargic short of breath and having some chest pain so at this point in time I cardioverted patient with 50 J of synchronized cardioversion. Patient was first given Versed 3 mg. And put on a nonrebreather. We cardioverted the patient and immediately the patient was in sinus rhythm. - Procedural Sedation *Procedural Sedation Start Time: 14:35 *Risks,benefits, and alternative therapies discussed?: No *Patient indicates understanding of risk/benefit discussion?: No *Previous Adverse Reaction to Anesthesia/Sedation?: No Reason Test Not Complete:: Emergent Situation *ASA Class: II *Mallampati Airway Score: 2 Preparation: surveillance system monitor applied, pulse oximeter, supplemental O2 applied Midazolam Dose: 3 Complications: none Patient Tolerated Procedure: well Medical Decision Making - Medical Decision Making EKG is interpreted by myself but EKG shows for a few months end of some low- grade symptoms no trouble breathing atrial fibrillation with rapid ventricular response at 140 bpm QRS is 81 QT interval is 393 QTc is 374 provide patient's EKG shows no ST segment ovation or depression. Second EKG was done because heart rate went up. EKG is interpreted by myself. EKG shows atrial fibrillation with rapid ventricular response at 157 bpm QRS is 83 QT interval is 285 QTc is 373. Patient's EKG shows ST segment depression in leads I to and precordial leads V3 through V6 Repeat EKG was done after cardioversion. EKG shows sinus tachycardia at 106 bpm AL of the 156 QRS is 89 QT interval is 360 QTc is 422. Patient's EKG shows no ST segment elevation or depression Was pt. sent in by a medical professional or institution (JOHNNY Ivory, [employer], urgent care, hospital, or custodial...) When possible be specific @ -No Did you speak to anyone other than the patient for history (EMS, parent, family, police, friend...)? What history was obtained from this source @ -No Did you review nursing and triage notes (agree or disagree)? Why? @ -I reviewed and agree with nursing and triage notes Were old charts reviewed (outside hosp., previous admission, EMS record, old EKG, old radiological studies, urgent care reports/EKG's, custodial records)? Report findings @ -No old charts were reviewed Differential Diagnosis? @ -Differential Altered Mental Status: Hypoglycemia, DKA, hypercapnia, ETOH, overdose, CO poisoning, trauma, myxedema coma, HTN encephalopathy, infection, encephalitis, psychosis, intercranial hemorrhage, hepatic encephalopathy, meningitis, CVA, this is not meant to be an all-inclusive list EKG interpreted by me (3pts min.). @ -As above X-rays interpreted by me (1pt min.). @ -Chest x-ray shows no acute normality CT interpreted by me (1pt min.). @ -None done U/S interpreted by me (1pt. min.). @ -None done What testing was considered but not performed or refused? (CT, X-rays, U/S, labs)? Why? @ -None What meds were considered but not given or refused? Why? @ -None Did you discuss the management of the patient with other professionals (humberto gregory i.e. Dr., PA, [employer], lab, RT, psych nurse, social staff worker, silk blocker, teacher, employment security officer, case planner)? Give summary @ -I spoke with Dr. Mayer and he agreed to admit the patient Was smoking cessation discussed for >3mins.? @ -No Was critical care preformed (if so, how long)? @ -35 minutes Were there social determinants of health that impacted care today? How? (Homelessness, low income, unemployed, alcoholism, drug addiction, transportation, low edu. Level, literacy, decrease access to med. care, senior care, rehab)? @ -No Was there de-escalation of care discussed even if they declined (Discuss DNR or withdrawal of care, Hospice)? DNR status @ -No What co-morbidities impacted this encounter? (DM, HTN, Smoking, COPD, CAD, Cancer, CVA, ARF, Chemo, Hep., AIDS, mental health diagnosis, sleep apnea, morbid obesity)? @ -None Was patient admitted / discharged? Hospital course, mention meds given and route, prescriptions, significant lab abnormalities, going to OR and other pertinent info. @ -Patient was in A-fib and was unstable so I did cardiovert the patient. Patient's still altered mentally according to the daughter. Patient will be admitted and currently she is in sinus rhythm and I will continue antibiotics as an inpatient. Patient will be admitted to Dr. Mayer Undiagnosed new problem with uncertain prognosis? @ -No Drug Therapy requiring intensive monitoring for toxicity (Heparin, Nitro, Insulin, Cardizem)? @ -No Were any procedures done? @ -No Diagnosis/symptom? @ -A-fib with rapid ventricular response stable Acute, or Chronic, or Acute on Chronic? @ -Acute Uncomplicated (without systemic symptoms) or Complicated (systemic symptoms)? @ -Complicate Side effects of treatment? @ -No Exacerbation, Progression, or Severe Exacerbation? @ -No Poses a threat to life or bodily function? How? (Chest pain, [place], [place], pneumonia, PE, COPD, DKA, ARF, appy, cholecystitis, CVA, Diverticulitis, Homicidal, Suicidal, threat to staff... and all critical care pts) @ -Yes this could lead to poor perfusion and endorgan dysfunction Diagnosis/symptom? @ -Urinary tract infection Acute, or Chronic, or Acute on Chronic? @ -Acute Uncomplicated (without systemic symptoms) or Complicated (systemic symptoms)? @ -Complicated Side effects of treatment? @ -None Exacerbation, Progression, or Severe Exacerbation] @ -No Poses a threat to life or bodily function? @ -No Diagnosis/symptom? @ -Altered mental state Acute, or Chronic, or Acute on Chronic? @ -Acute Uncomplicated (without systemic symptoms) or Complicated (systemic symptoms)? @ -Complicated Side effects of treatment? @ -None Exacerbation, Progression, or Severe Exacerbation] @ -No Poses a threat to life or bodily function? @ -No - Lab Data Result diagrams: 08/31/24 13:13 08/31/24 13:13 Lab Results 08/31/24 08/31/24 08/31/24 Range/Units 13:13 13:13 13:13 WBC 18.1 H (3.8-10.6) k/uL RBC 4.66 (3.80-5.40) m/uL Hgb 13.5 (11.4-16.0) gm/dL Hct 41.7 (34.0-46.0) % MCV 89.5 (80.0-100.0) fL MCH 29.0 (25.0-35.0) pg MCHC 32.4 (31.0-37.0) g/dL RDW 13.3 (11.5-15.5) % Plt Count 315 (150-450) k/uL MPV 7.5 Neutrophils % 84 % Lymphocytes % 9 % Monocytes % 4 % Eosinophils % 2 % Basophils % 0 % Neutrophils # 15.2 H (1.3-7.7) k/uL Lymphocytes # 1.6 (1.0-4.8) k/uL Monocytes # 0.8 (0-1.0) k/uL Eosinophils # 0.3 (0-0.7) k/uL Basophils # 0.0 (0-0.2) k/uL Sodium 138 (137-145) mmol/L Potassium 4.2 (3.5-5.1) mmol/L Chloride 101 (98-107) mmol/L Carbon Dioxide 31 H (22-30) mmol/L Anion Gap 6 mmol/L BUN 16 (7-17) mg/dL Creatinine 1.33 H (0.52-1.04) mg/dL Est GFR (CKD-EPI)AfAm 42 (>60 ml/min/1.73 sqM) Est GFR (CKD-EPI)NonAf 36 (>60 ml/min/1.73 sqM) Glucose 114 H (74-99) mg/dL Calcium 9.5 (8.4-10.2) mg/dL Magnesium (1.6-2.3) mg/dL Total Bilirubin 0.6 (0.2-1.3) mg/dL AST 17 (14-36) U/L ALT 9 (4-34) U/L Alkaline Phosphatase 142 H (38-126) U/L Troponin I <0.012 (0.000-0.034) ng/mL Total Protein 6.3 (6.3-8.2) g/dL Albumin 3.8 (3.5-5.0) g/dL Urine Color Urine Appearance (Clear) Urine pH (5.0-8.0) Ur Specific [place] (1.001-1.035) Urine Protein (Negative) Urine Glucose (UA) (Negative) Urine Ketones (Negative) Urine Blood (Negative) Urine Nitrite (Negative) Urine Bilirubin (Negative) Urine Urobilinogen (<2.0) mg/dL Ur Leukocyte Esterase (Negative) Urine RBC (0-5) /hpf Urine WBC (0-5) /hpf Ur Squamous Epith Cells (0-4) /hpf Hyaline Casts (0-2) /lpf 08/31/24 08/31/24 08/31/24 Range/Units 13:13 15:03 15:09 WBC (3.8-10.6) k/uL RBC (3.80-5.40) m/uL Hgb (11.4-16.0) gm/dL Hct (34.0-46.0) % MCV (80.0-100.0) fL MCH (25.0-35.0) pg MCHC (31.0-37.0) g/dL RDW (11.5-15.5) % Plt Count (150-450) k/uL MPV Neutrophils % % Lymphocytes % % Monocytes % % Eosinophils % % Basophils % % Neutrophils # (1.3-7.7) k/uL Lymphocytes # (1.0-4.8) k/uL Monocytes # (0-1.0) k/uL Eosinophils # (0-0.7) k/uL Basophils # (0-0.2) k/uL Sodium (137-145) mmol/L Potassium (3.5-5.1) mmol/L Chloride (98-107) mmol/L Carbon Dioxide (22-30) mmol/L Anion Gap mmol/L BUN (7-17) mg/dL Creatinine (0.52-1.04) mg/dL Est GFR (CKD-EPI)AfAm (>60 ml/min/1.73 sqM) Est GFR (CKD-EPI)NonAf (>60 ml/min/1.73 sqM) Glucose (74-99) mg/dL Calcium (8.4-10.2) mg/dL Magnesium 2.0 (1.6-2.3) mg/dL Total Bilirubin (0.2-1.3) mg/dL AST (14-36) U/L ALT (4-34) U/L Alkaline Phosphatase (38-126) U/L Troponin I <0.012 (0.000-0.034) ng/mL Total Protein (6.3-8.2) g/dL Albumin (3.5-5.0) g/dL Urine Color Colorless Urine Appearance Clear (Clear) Urine pH 7.0 (5.0-8.0) Ur Specific [place] 1.008 (1.001-1.035) Urine Protein Trace H (Negative) Urine Glucose (UA) Negative (Negative) Urine Ketones Negative (Negative) Urine Blood Small H (Negative) Urine Nitrite Negative (Negative) Urine Bilirubin Negative (Negative) Urine Urobilinogen <2.0 (<2.0) mg/dL Ur Leukocyte Esterase Trace H (Negative) Urine RBC 41 H (0-5) /hpf Urine WBC 8 H (0-5) /hpf Ur Squamous Epith Cells <1 (0-4) /hpf Hyaline Casts 1 (0-2) /lpf Critical Care Time Critical Care Time: Yes Total Critical Care Time: 35 Disposition Clinical Impression: Atrial fibrillation with RVR, Urinary tract infection, Altered mental status Disposition: ADMITTED IP TO THIS HOSP Referrals: Ama Frederick MD [Primary Care Provider] - 1-2 days Time of Disposition: 16:11
[2024-08-31] MEDS: SODIUM CHLORIDE 0.9% 1,000 ML IV ONE (13:50)
[2024-08-31 14:01] LABS: Basophils % (A) 0 %; Eosinophils # (A) 0.3 k/uL (0-0.7); Eosinophils % (A) 2 %; HCT 41.7 % (34.0-46.0); HGB 13.5 gm/dL (11.4-16.0); Lymphocytes # (A) 1.6 k/uL (1.0-4.8); Lymphocytes % (A) 9 %; MCHC 32.4 g/dL (31.0-37.0); MCV 89.5 fL (80.0-100.0); Mean Platelet Volume 7.5; Monocytes # (A) 0.8 k/uL (0-1.0); Monocytes % (A) 4 %; Neutrophils # (A) 15.2 k/uL (1.3-7.7); Neutrophils % (A) 84 %; Platelet Count 315 k/uL (150-450); RBC 4.66 m/uL (3.80-5.40); RDW 13.3 % (11.5-15.5); WBC 18.1 k/uL (3.8-10.6)
[2024-08-31 14:13] LABS: ALT 9 U/L (4-34); AST 17 U/L (14-36); African American GFR (CKD) 42 (>60 ml/min/1.73 sqM); Albumin 3.8 g/dL (3.5-5.0); Alkaline Phosphatase 142 U/L (38-126); Anion Gap 6 mmol/L; Blood Urea Nitrogen 16 mg/dL (7-17); Calcium 9.5 mg/dL (8.4-10.2); Carbon Dioxide 31 mmol/L (22-30); Chloride 101 mmol/L (98-107); Glucose 114 mg/dL (74-99); Non-African American GFR(CKD) 36 (>60 ml/min/1.73 sqM); Potassium 4.2 mmol/L (3.5-5.1); Sodium 138 mmol/L (137-145); Total Bilirubin 0.6 mg/dL (0.2-1.3); Total Protein 6.3 g/dL (6.3-8.2)
[2024-08-31] MEDS: DILTIAZEM 125 MG in SODIUM CHLORIDE 0.9% 100 ML IV SCH (14:27)
[2024-08-31] MEDS: MIDAZOLAM 1 MG/ML 5 ML VIAL IV STA (14:38)
[2024-08-31 15:17] LABS: Appearance,Urine Clear (Clear); Bilirubin,Urine Negative (Negative); Blood,Urine Small (Negative); Color,Urine Colorless; Glucose,Urine (UA) Negative (Negative); Hyaline Casts,Urine 1 /lpf (0-2); Ketones,Urine Negative (Negative); Leukocyte Esterase,Urine Trace (Negative); Nitrite,Urine Negative (Negative); Protein,Urine Trace (Negative); RBC,Urine 41 /hpf (0-5); Specific Gravity,Urine 1.008 (1.001-1.035); Squamous Epithelial Cell,Urine <1 /hpf (0-4); Urobilinogen,Urine <2.0 mg/dL (<2.0); WBC,Urine 8 /hpf (0-5)
--- NOTE | 2024-08-31 15:50 | XR ---
EXAMINATION TYPE: XR chest 2V DATE OF EXAM: 08/31/2024 3:39 PM COMPARISON: Previous chest radiographs, most recent dated 10/26/2023. CLINICAL INDICATION: Female, 84 years old with history of altered mental status; [facility] TECHNIQUE: XR chest 2V Frontal and lateral views of the chest. FINDINGS: Cardiac silhouette stable. Mild pulmonary vascular congestive changes and trace bilateral pleural effusions. No acute focal cons olidation. No pneumothorax. Spinal stimulator and posterior fusion hardware partially visualized. IMPRESSION: Mild pulmonary vascular congestion and trace bilateral pleural effusions. [facility], , 08/31/2024 3:47 PM
[2024-08-31] MEDS: DILTIAZEM DRIP BOLUS FROM BAG 1 MG SOLN IV ONE (15:51)
[2024-08-31] MEDS ORDERED: NITROGLYCERIN SL TABS 0.4 MG TAB SUBLINGUAL PRN (16:48)
[2024-08-31] MEDS: cefTRIAXone IN SWFI 1,000 MG/10 ML SYRINGE IVP STA ×2 (17:58→18:00)
--- NOTE | 2024-08-31 18:07 | P.HPIM ---
History of Present Illness H&P Date: 08/31/24 Patient is a 79-year-old female with hyperlipidemia, hypertension, and recent urologic procedure (08/[address] Morin required Hernandez catheter insertion postop) who came in for altered mental status. Patient was altered during interview and history was taken from patient's daughter at bedside. Patient had urologic surgery with Dr. Dukes last and was placed on a Hernandez catheter. On Sunday 08/26, the Hernandez catheter was removed but patient noted to have low urine output at the time. For a few days urine output gradually improved. However on 08/29, patient became more confused, had less urine output, and had multiple falls that were witnessed. Patient did not lose consciousness during these falls. Patient also had associated abdominal pain and right hip pain after the falls. She did not experience fevers, chills, sweats, hematuria, dysuria, urinary frequency, urinary urgency, shortness of breath, cough, nausea, vomiting, diarrhea, recent travel, or recent sick contacts. During evaluation at the ED patient suddenly had an elevated heart rate at the 150s with blood pressure dropping to systolics of 70s with lethargy and shortness of breath. Patient was cardioverted x 1 and reverted back to sinus. EKG during elevated heart rate showed atrial tachycardia with a rate of [address]-T changes with good R wave progression QTc 373 MS QRS 83 MS. Chest x-ray sh owed congestion with bilateral pleural effusions. WBC 18.1 neutrophils 15.2 sodium 138 potassium 4.2 chloride 101 bicarb 31 BUN 16 creatinine 1.33 glucose 114 calcium 9.5 magnesium 2 AST 17 ALT 9 alk phos 142 troponin negative at 0.0 12 albumin 3.8. Urinalysis shows trace protein small blood and trace leukocyte esterase RBC 41 WBC 8. On admission patient was afebrile at 97.8 pulse rate 99 blood pressure 166/95 O2 saturation 94% on room air. Heart rate increased to 154 Duret respiratory rate of 18 blood pressure 76/52 O2 saturation 91% on room air prior to cardioversion. Review of systems: Pertinent positives and negatives as discussed in HPI, a complete review of systems was performed and all other systems are negative. Physical examination: Vital signs reviewed General: Confused, non toxic, no distress Derm: no unusual rashes/lesions, warm Head: atraumatic, normocephalic, symmetric Eyes: EOMI, anicteric sclera, pupils equal round reactive to light ENT: Nose and ears atraumatic Neck: No cervical lymphadenopathy, trachea midline, supple Mouth: no lip lesion, mucus membranes moist Cardiovascular: S1S2 tachycardic, no murmur Lungs: CTA bilateral, no rhonchi, no rales, no accessory muscle use Abdominal: soft, nondistended tenderness palpation right lower quadrant on light palpation and epigastric area on deep palpation, no guarding Ext: No gross muscle atrophy, no contractures, positive dorsalis pedis pulse bilateral, no extremity edema Neuro: CN II-XI grossly intact, no gross focal neuro deficits Psych: Alert and oriented x 0, appropriate affect and mood Assessment/Plan: 84-year-old female with recent urologic procedure with Hernandez catheter placement who is here for the evaluation of acute encephalopathy. In the ER she had an episode of atrial tachycardia status post cardioversion. #. Acute metabolic encephalopathy, likely secondary to infection, rule out other causes Chest x-ray showed congestion with bilateral pleural effusions. CT head without contrast Blood culture Urine culture TSH B12 CBC and BMP in the a.m. Ceftriaxone IVPB 2 g daily initiated in the ED Continue with ceftriaxone IVPB 2 g daily #. Atrial tachycardia status post cardioversion EKG during elevated heart rate showed atrial tachycardia with a rate of [address]-T changes with good R wave progression QTc 373 MS QRS 83 MS Echocardiogram Consult cardiology #. MARYANNE in the setting on CKD Stage 3b Monitor BMP #. Right hip pain Hip x-ray 0Norco 5-3 25 p.o. every 6 as needed for pain Chronic Conditions: #. Hyperlipidemia #. Hypertension #. Anxiety #. GERD Hold lisinopril 5 mg p.o. Hold zolpidem 5 mg p.o. Decrease gabapentin dose to 100 mg p.o. F: Through oral intake E: None N: None A:Heart healthy diet DVT ppx: Lovenox 40 mg SQ daily GI ppx: Protonix 40 mg p.o. daily Dispo: The patient is admitted with an anticipated greater than 2 midnight stay for evaluation of acute encephalopathy and atrial tachycardia Discussed with: Patient and patient's daughter Anticipated discharge place: Home Irma Long MD PGY-1 IM Dictation was produced using dragon dictation software. please excuse any grammatical, word or spelling errors. A total of 65 minutes was spent on the care of this complex patient more than 50% of the time was spent in counseling and care coordination. I have seen and evaluated the patient today. Discussed with the resident and agree with the residents finding and plan as documented in the resident's note. Changes highlighted in blue font. Past Medical History Past Medical History: Hyperlipidemia, Osteoarthritis (OA) Additional Past Medical History / Comment(s): HX SPINAL STENOSIS/OSTEOARTHRITIS. Cervical myelopathy with upper extremity weakness status post anterior cervical decompression and fusion on 12/23/2020. Recurrent urinary tract infections History of Any Multi-Drug Resistant Organisms: None Reported Past Surgical History: Back Surgery Additional Past Surgical History / Comment(s): HX HAND NEUROMA LEFT FOOT/ BILAT CATARACTS REMOVED AND GLAUCOMA, neck surgery Past Anesthesia/Blood Transfusion Reactions: No Reported Reaction Past Psychological History: Anxiety Smoking Status: Former smoker Past Alcohol Use History: None Reported Past Drug Use History: None Reported - Past Family History Mother Family Medical History: Dementia Additional Family Medical History / Comment(s): AGE 97 OF NATURAL CAUSES Brother(s) Family Medical History: Cancer Additional Family Medical History / Comment(s): HX ASBESTOS Sister(s) Family Medical History: CVA/TIA Daughter(s) Additional Family Medical History / Comment(s): ANXIETY/SCOLIOSIS Son(s) Additional Family Medical History / Comment(s): HX HEMOCHROMATOSIS Medications and Allergies Home Medications Medication Instructions Recorded Confirmed Type Aspirin [Adult Low Dose Aspirin EC] 81 mg PO DAILY 08/22/16 07/17/24 History Atorvastatin [Lipitor] 20 mg PO DAILY 12/22/20 07/17/24 History Gabapentin [Neurontin] 300 mg PO HS 01/02/21 07/17/24 History Pantoprazole Sodium [Protonix] 20 mg PO DAILY 01/02/21 07/17/24 History Zolpidem [Ambien] 5 mg PO HS 01/02/21 07/17/24 History Glycopyrrolate [Robinul Forte] 2 mg PO TID 05/19/21 07/17/24 History HYDROcodone/APAP 10-325MG [[place] 1 tab PO TID 05/19/21 07/17/24 History 10-325] Escitalopram [Lexapro] 5 mg PO DAILY 10/11/23 07/17/24 History Vitamin C(Unknown Dose) 1 tab PO DAILY@1200 10/11/23 07/17/24 History lisinopriL [Zestril] 5 mg PO DAILY 10/11/23 07/17/24 History Hydrocortisone Cream 1 applic TOPICAL BID 07/17/24 07/17/24 History [Hydrocortisone 2.5% Cream] L.acidoph,Paracasei, B.lactis 1 cap PO DAILY@1200 07/17/24 07/17/24 History [Probiotic] Tamsulosin [Flomax] 0.4 mg PO HS 07/17/24 07/17/24 History Allergies Allergy/AdvReac Type Severity Reaction Status Date / Time baclofen Allergy Unknown Verified 08/31/24 12:22 latex Allergy Swelling Verified 08/31/24 12:22 Penicillins Allergy Nausea & Verified 08/31/24 12:22 Vomiting donepezil [From Aricept] AdvReac Nausea & Verified 08/31/24 12:22 Vomiting/Lightheaded quinine AdvReac Rapid Verified 08/31/24 12:22 Heart Rate Physical Exam Vitals: Vital Signs Temp Pulse Resp BP Pulse Ox 08/31/24 17:00 103 H 16 103/83 98 08/31/24 15:56 106 H 16 178/109 96 08/31/24 15:16 107 H 18 139/96 99 08/31/24 14:50 105 H 12 117/77 100 08/31/24 14:42 114 H 6 L 127/78 99 08/31/24 14:35 148 H 18 73/53 99 08/31/24 14:25 154 H 18 76/52 91 L 08/31/24 12:18 98 F 95 18 114/78 96 Intake and Output 08/31/24 08/31/24 08/31/24 06:59 14:59 22:59 Other: Weight 55.792 kg Results CBC & Chem 7: 08/31/24 13:13 08/31/24 13:13 Labs: Abnormal Lab Results - Last 24 Hours (Table) 08/31/24 08/31/24 08/31/24 Range/Units 13:13 13:13 15:03 WBC 18.1 H (3.8-10.6) k/uL Neutrophils # 15.2 H (1.3-7.7) k/uL Carbon Dioxide 31 H (22-30) mmol/L Creatinine 1.33 H (0.52-1.04) mg/dL Glucose 114 H (74-99) mg/dL Alkaline Phosphatase 142 H (38-126) U/L Urine Protein Trace H (Negative) Urine Blood Small H (Negative) Ur Leukocyte Esterase Trace H (Negative) Urine RBC 41 H (0-5) /hpf Urine WBC 8 H (0-5) /hpf
[2024-08-31] MEDS: HYDROcodone/APAP 5-325MG 1 EACH TAB PO PRN (18:12)
--- NOTE | 2024-08-31 19:02 | XR ---
EXAMINATION TYPE: XR Hip Bilateral and AP pelvis DATE OF EXAM: 08/31/2024 6:51 PM COMPARISON: None available. CLINICAL INDICATION: Female, 84 years old with history of right hip pain; H TECHNIQUE: XR Hip Bilateral and AP pelvis; hip was examined in the frontal and lateral projections an d a AP pelvis. FINDINGS: Osseous structures qualitatively demineralized. No acute fracture or dislocation. 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 Possible old pubic fractures. Posterior lumbosacral spi nal fusion hardware. Likely spinal stimulator device partially visualized. Vascular calcifications vi sualized. IMPRESSION: 1. No acute fracture or dislocation. 2. Moderate bilateral degenerative changes of the hips. [facility], , 08/31/2024 7:00 PM
--- NOTE | 2024-08-31 20:50 | CT ---
EXAMINATION TYPE: CT brain wo con DATE OF EXAM: 08/31/2024 8:20 PM COMPARISON: Previous CT study 10/11/2023.. CLINICAL INDICATION: Female, 84 years old with history of altered mental status, AMS, confusion TECHNIQUE: Brain: Axial CT images of the brain were obtained with coronal and sagittal reformats created and rev iewed. Contrast used: None. Oral contrast used: None. CT DLP: 1125.4 mGycm, Automated exposure control for dose reduction was used. FINDINGS: Brain: Extra-axial spaces: No abnormal extra-axial fluid collections. Ventricular system: Mildly prominent suggesting mild cerebral volume loss. Cerebral parenchyma: No acute intraparenchymal hemorrhage or mass effect. The fournier-white junction is acutely preserved. Scattered hypoattenuating areas are seen within the white matter. Cerebellum: Unremarkable. Mass effect: No evidence of midline shift. Intracranial vasculature: unremarkable Soft tissues: Normal. Calvarium/osseous structures: No depressed skull fracture. Paranasal sinuses and mastoid air cells: Mild scattered paranasal sinus disease. Visualized orbits: Orbital contents are intact. Previous bilateral cataract lens extraction. IMPRESSION: No acute intracranial process. [facility], , 08/31/2024 8:47 PM
[2024-08-31] MEDS ORDERED: HEPARIN SODIUM 1,000 UN/ML (10ML VL) IV PRN (23:12)
[2024-08-31] MEDS: HEPARIN SOD,PORK IN 0.45% NACL 25,000 UNIT in 0.45% NACL 1 250ML.BAG IV SCH (23:48)
[2024-08-31] MEDS: HEPARIN SODIUM 1,000 UN/ML (10ML VL) IV ONE (23:54)
[2024-09-01 07:32] LABS: Basophils # (A) 0.1 k/uL (0-0.2); Basophils % (A) 0 %; Eosinophils # (A) 0.2 k/uL (0-0.7); Eosinophils % (A) 1 %; HCT 37.2 % (34.0-46.0); HGB 12.4 gm/dL (11.4-16.0); Lymphocytes # (A) 2.3 k/uL (1.0-4.8); Lymphocytes % (A) 16 %; MCH 29.7 pg (25.0-35.0); MCHC 33.4 g/dL (31.0-37.0); MCV 88.9 fL (80.0-100.0); Mean Platelet Volume 7.4; Monocytes # (A) 0.9 k/uL (0-1.0); Monocytes % (A) 6 %; Neutrophils # (A) 10.9 k/uL (1.3-7.7); Neutrophils % (A) 75 %; Platelet Count 307 k/uL (150-450); RBC 4.19 m/uL (3.80-5.40); RDW 13.4 % (11.5-15.5); WBC 14.5 k/uL (3.8-10.6)
[2024-09-01 07:46] LABS: African American GFR (CKD) 52 (>60 ml/min/1.73 sqM); Anion Gap 7 mmol/L; Blood Urea Nitrogen 13 mg/dL (7-17); Calcium 9.1 mg/dL (8.4-10.2); Carbon Dioxide 29 mmol/L (22-30); Chloride 102 mmol/L (98-107); Glucose 101 mg/dL (74-99); Non-African American GFR(CKD) 45 (>60 ml/min/1.73 sqM); Potassium 3.5 mmol/L (3.5-5.1); Sodium 138 mmol/L (137-145)
[2024-09-01] MEDS: PANTOPRAZOLE 40 MG TABLET PO SCH (07:47)
[2024-09-01] MEDS: lisinopriL 20 MG TAB PO SCH (08:05)
[2024-09-01] MEDS: METOPROLOL SUCCINATE (ER) 25 MG TAB.ER.24H PO SCH (08:05)
[2024-09-01] MEDS: ESCITALOPRAM 5 MG TAB PO SCH (08:09)
[2024-09-01] MEDS ORDERED: lisinopriL 10 MG TAB PO SCH (09:00)
[2024-09-01] MEDS ORDERED: ENOXAPARIN 40 MG/0.4 ML SYRINGE SQ SCH (09:00)
[2024-09-01] MEDS ORDERED: NON FORMULARY DRUG (Pantoprazole Sodium [Protonix] 20 MG Tablet.Dr) PO SCH (09:00)
[2024-09-01] MEDS ORDERED: ASPIRIN 325 MG TAB PO SCH (09:00)
[2024-09-01] MEDS: hydrALAZINE HCL 50 MG TAB PO SCH (10:17)
--- NOTE | 2024-09-01 11:16 | P.CRDCN ---
History of Present Illness Consult date: 09/01/24 History of present illness: HISTORY OF PRESENTING ILLNESS 79-year-old with past medical history of hypertension, dyslipidemia. She recently underwent a urological procedure by her urologist. She presented to the hospital because of altered mental status. Patient denies losing consciousness or having any dizziness. She did had a fall at home. She been complaining of some abdominal pain and right hip pain. Initial workup did not show any signs of fractures. She did not have any cough, shortness of breath or fevers. She denies having any chest pain chest pressure, palpitations. Labs showed Elevated WBC count, creatinine 1.3 REVIEW OF SYSTEMS 14 point review of system is negative except what is mentioned above in HPI. PHYSICAL EXAMINATION Vital signs reviewed. Head: Normocephalic. Eyes: Sclerae nonicteric. Neck: Brisk carotid upstroke, no jugular venous distention. Lungs: Clear to auscultation. Heart: Regular rate and rhythm, S1-S2, , no murmur or rub. Abdomen: Soft nontender, positive bowel sounds. Extremities: No edema, intact distal pulses. Neuro: Alert, no focal deficits. Detailed neuro exam was not performed. ASSESSMENT Type II NSTEMI, demand supply mismatch from tachycardia Tachycardia, most likely atrial fibrillation, newly diagnosed Hypertension, uncontrolled Possible concern of UTI Metabolic encephalopathy MARYANNE Cardiac testing Initial troponin was negative, repeat 0.09, repeat 0.2 Admission ECG showed tachycardia with irregular RR interval, most likely atrial fibrillation, rate related diffuse ST depressions in inferolateral leads Chest x-ray shows mild pulm congestion. PLAN Continue IV heparin drip for 48 hours Start aspirin, continue Lipitor Increase metoprolol succinate to 50 mg daily. Add amlodipine 5 mg daily. Con tinue lisinopril at 20 mg daily. Hydralazine 25 mg 4 times daily. Consider discontinuing hydralazine eventually. Obtain updated echocardiogram NT-proBNP lipid HbA1c, Pro-Julisu May need ischemic evaluation pending clinical course. Need to contact family to understand patient's wishes about invasive procedures Wm Dailey MD, FACC, RPVI Thank you for allowing [facility] to participate in this patient's care. Feel free to reach out in case of any followup questions. Past Medical History Past Medical History: Hyperlipidemia, Osteoarthritis (OA) Additional Past Medical History / Comment(s): HX SPINAL STENOSIS/OSTEOARTHRITIS. Cervical myelopathy with upper extremity weakness status post anterior cervical decompression and fusion on 12/23/2020. Recurrent urinary tract infections History of Any Multi-Drug Resistant Organisms: None Reported Past Surgical History: Back Surgery Additional Past Surgical History / Comment(s): HX HAND NEUROMA LEFT FOOT/ BILAT CATARACTS REMOVED AND GLAUCOMA, neck surgery Past Anesthesia/Blood Transfusion Reactions: No Reported Reaction Past Psychological History: Anxiety Smoking Status: Former smoker Past Alcohol Use History: None Reported Past Drug Use History: None Reported - Past Family History Mother Family Medical History: Dementia Additional Family Medical History / Comment(s): AGE 97 OF NATURAL CAUSES Brother(s) Family Medical History: Cancer Additional Family Medical History / Comment(s): HX ASBESTOS Sister(s) Family Medical History: CVA/TIA Daughter(s) Additional Family Medical History / Comment(s): ANXIETY/SCOLIOSIS Son(s) Additional Family Medical History / Comment(s): HX HEMOCHROMATOSIS Medications and Allergies Home Medications Medication Instructions Recorded Confirmed Type Aspirin [Adult Low Dose Aspirin EC] 81 mg PO DAILY 08/22/16 08/31/24 History Atorvastatin [Lipitor] 20 mg PO HS 12/22/20 08/31/24 History Gabapentin [Neurontin] 300 mg PO HS 01/02/21 08/31/24 History Pantoprazole Sodium [Protonix] 20 mg PO DAILY 01/02/21 08/31/24 History Zolpidem [Ambien] 2.5 mg PO HS 01/02/21 08/31/24 History Glycopyrrolate [Robinul Forte] 2 mg PO TID 05/19/21 08/31/24 History HYDROcodone/APAP 10-325MG [[place] 1 tab PO TID 05/19/21 08/31/24 History 10-325] Escitalopram [Lexapro] 5 mg PO DAILY 10/11/23 08/31/24 History lisinopriL [Zestril] 5 mg PO DAILY 10/11/23 08/31/24 History Hydrocortisone Cream 1 applic TOPICAL BID 07/17/24 08/31/24 History [Hydrocortisone 2.5% Cream] L.acidoph,Paracasei, B.lactis 1 cap PO DAILY 07/17/24 08/31/24 History [Probiotic] Tamsulosin [Flomax] 0.4 mg PO HS 07/17/24 08/31/24 History Cyclobenzaprine [Flexeril] 10 mg PO BID 08/31/24 08/31/24 History Metoprolol Succinate (ER) [Toprol 25 mg PO DAILY 08/31/24 08/31/24 History XL] Sulfamethox-Tmp 800-160Mg [Bactrim 1 tab PO BID 08/31/24 08/31/24 History DS 800-160 mg] polyethylene glycoL 3350 [Miralax] 17 gm PO DAILY 08/31/24 08/31/24 History Allergies Allergy/AdvReac Type Severity Reaction Status Date / Time baclofen Allergy Unknown Verified 08/31/24 19:11 latex Allergy Swelling Verified 08/31/24 19:11 Penicillins Allergy Nausea & Verified 08/31/24 19:11 Vomiting donepezil [From Aricept] AdvReac Nausea & Verified 08/31/24 19:11 Vomiting/Lightheaded midazolam [From Versed] AdvReac Confusion Verified 09/01/24 08:12 quinine AdvReac Rapid Verified 08/31/24 19:11 Heart Rate Physical Exam Vitals: Vital Signs Temp Pulse Resp BP Pulse Ox 09/01/24 11:04 98.3 F 103 H 17 179/92 94 L 09/01/24 10:15 98.6 F 105 H 16 206/116 94 L 09/01/24 09:36 191/122 09/01/24 09:32 99.8 F H 104 H 14 199/115 94 L 09/01/24 09:03 95 09/01/24 09:00 105 H 17 183/109 91 L 09/01/24 08:12 105 H 16 186/119 94 L 09/01/24 07:35 99.2 F 105 H 18 190/130 94 L 09/01/24 06:49 98.8 F 107 H 20 195/112 94 L 09/01/24 05:23 109 H 18 187/117 93 L 08/31/24 23:38 106 H 17 183/113 94 L 08/31/24 23:15 98.8 F 108 H 19 162/108 92 L 08/31/24 18:38 105 H 14 189/115 08/31/24 17:00 103 H 16 103/83 98 08/31/24 15:56 106 H 16 178/109 96 08/31/24 15:16 107 H 18 139/96 99 08/31/24 14:50 105 H 12 117/77 100 08/31/24 14:42 114 H 6 L 127/78 99 08/31/24 14:35 148 H 18 73/53 99 08/31/24 14:25 154 H 18 76/52 91 L 08/31/24 12:18 98 F 95 18 114/78 96 Intake and Output 08/31/24 09/01/24 09/01/24 22:59 06:59 14:59 Intake Total 54.676 Output Total 500 1400 Balance -500 -1345.324 Intake: Intake, IV Titration 54.676 Amount Heparin Sod,Pork in 0.45% 54.676 NaCl 25,000 unit In 0.45 % NaCl 1 250ml.bag @ 12 UNITS/KG/HR 6.695 mls/hr IV .Q24H [facility] Rx#: [id number] Output: Urine 500 1400 Results 09/01/24 07:08 09/01/24 07:08 Cardiac Enzymes 08/31/24 08/31/24 08/31/24 Range/Units 13:13 13:13 15:09 AST 17 (14-36) U/L Troponin I <0.012 <0.012 (0.000-0.034) ng/mL 08/31/24 08/31/24 Range/Units 17:59 21:21 AST (14-36) U/L Troponin I 0.090 H* 0.277 H* (0.000-0.034) ng/mL Coagulation 08/31/24 09/01/24 Range/Units 23:39 07:08 APTT 27.5 58.3 H (22.0-30.0) sec CBC 08/31/24 09/01/24 Range/Units 13:13 07:08 WBC 18.1 H 14.5 H (3.8-10.6) k/uL RBC 4.66 4.19 (3.80-5.40) m/uL Hgb 13.5 12.4 (11.4-16.0) gm/dL Hct 41.7 37.2 (34.0-46.0) % Plt Count 315 307 (150-450) k/uL Comprehensive Metabolic Panel 08/31/24 09/01/24 Range/Units 13:13 07:08 Sodium 138 138 (137-145) mmol/L Potassium 4.2 3.5 (3.5-5.1) mmol/L Chloride 101 102 (98-107) mmol/L Carbon Dioxide 31 H 29 (22-30) mmol/L BUN 16 13 (7-17) mg/dL Creatinine 1.33 H 1.11 H (0.52-1.04) mg/dL Glucose 114 H 101 H (74-99) mg/dL Calcium 9.5 9.1 (8.4-10.2) mg/dL AST 17 (14-36) U/L ALT 9 (4-34) U/L Alkaline Phosphatase 142 H (38-126) U/L Total Protein 6.3 (6.3-8.2) g/dL Albumin 3.8 (3.5-5.0) g/dL Current Medications Generic Name Dose Route Start Last Admin Trade Name Freq PRN Reason Stop Dose Admin Hydrocodone Bitart/Acetaminophen 1 each 08/31/24 17:57 09/01/24 07:18 Hydrocodone/Apap 5-325mg 1 Each Tab PO 1 each Q6HR PRN Administration Pain Amlodipine Besylate 5 mg 09/01/24 11:30 Amlodipine 5 Mg Tab PO DAILY [facility] Aspirin 81 mg 09/01/24 11:30 Aspirin 81 Mg PO DAILY [facility] Atorvastatin Calcium 20 mg 09/01/24 21:00 Atorvastatin 20 Mg Tab PO HS [facility] Escitalopram Oxalate 5 mg 09/01/24 09:00 09/01/24 08:09 Escitalopram 5 Mg Tab PO 5 mg DAILY GUERITA Administration Gabapentin 100 mg 09/01/24 21:00 Gabapentin 100 Mg Cap PO HS [facility] Heparin Sodium (Porcine) 0 unit 08/31/24 23:12 Heparin Sodium 1,000 Un/Ml (10ml Vl) IV PER PROTOCOL PRN Low PTT Protocol Hydralazine HCl 25 mg 09/01/24 13:00 Hydralazine Hcl 25 Mg Tab PO QID [facility] Ceftriaxone Sodium 2 gm/ 50 mls @ 100 mls/hr 09/01/24 09:00 09/01/24 08:05 Sodium Chloride IVPB 100 mls/hr Q24HR GUERITA Administration Protocol Heparin Sodium/Sodium Chloride 250 mls @ 6.695 mls/hr 08/31/24 23:45 09/01/24 07:58 25,000 unit/ Sodium Chloride IV 12 units/kg/hr .Q24H GUERITA 6.695 mls/hr Titration Protocol 12 UNITS/KG/HR Lisinopril 20 mg 09/01/24 09:00 09/01/24 08:05 Lisinopril 20 Mg Tab PO 20 mg DAILY GUERITA Administration Metoprolol Succinate 50 mg 09/02/24 09:00 Metoprolol Succinate (Er) 50 Mg Tab.Er.24h PO DAILY GUERITA Nitroglycerin 0.4 mg 08/31/24 16:48 Nitroglycerin Sl Tabs 0.4 Mg Tab SUBLINGUAL Q5M PRN Chest Pain Pantoprazole Sodium 40 mg 09/01/24 07:30 09/01/24 07:47 Pantoprazole 40 Mg Tablet PO 40 mg AC-BID GUERITA Administration Tamsulosin HCl 0.4 mg 09/01/24 21:00 Tamsulosin 0.4 Mg Cap.Er.24h PO HS [facility] Intake and Output 08/31/24 09/01/24 09/01/24 22:59 06:59 14:59 Intake Total 54.676 Output Total 500 1400 Balance -500 -1345.324 Intake: Intake, IV Titration 54.676 Amount Heparin Sod,Pork in 0.45% 54.676 NaCl 25,000 unit In 0.45 % NaCl 1 250ml.bag @ 12 UNITS/KG/HR 6.695 mls/hr IV .Q24H [facility] Rx#: [id number] Output: Urine 500 1400 09/01/24 07:08 09/01/24 07:08
[2024-09-01] MEDS: ASPIRIN 81 MG PO SCH (11:17)
[2024-09-01] MEDS: METOPROLOL SUCCINATE (ER) 25 MG TAB.ER.24H PO STA (11:18)
[2024-09-01] MEDS: amLODIPine 5 MG TAB PO SCH (11:18)
[2024-09-01] MEDS: hydrALAZINE HCL 25 MG TAB PO SCH (12:10)
[2024-09-01 12:22] LABS: Magnesium 1.8 mg/dL (1.6-2.3)
--- NOTE | 2024-09-01 13:46 | P.PN ---
Subjective Progress Note Date: 09/01/24 Subjective: Patient seen and examined at bedside. No acute events overnight. She denies any further palpitations or chest pain. She still has some suprapubic pain but denies any other urinary symptoms. Pertinent positives and negatives as discussed above, a complete review of systems was performed and all other systems are negative. Vitals Signs Reviewed. General: Nontoxic, no distress, appears at stated age Derm: Warm, dry Head: Atraumatic, normocephalic, symmetric Eyes: EOMI, no lid lag, anicteric sclera Mouth: No lip lesion, mucus membranes moist Cardiovascular: S1S2 tachycardic, no murmur Lungs: CTA bilateral, no rhonchi, no rales, no accessory muscle use Abdominal: Soft, tender to palpation in suprapubic, no guarding, no appreciable organomegaly Ext: No gross muscle atrophy, no edema, no contractures Neuro: CN II-XI grossly intact, no focal neuro deficits Psych: Alert, oriented, appropriate affect Data Reviewed Today: Pertinent Labs: WBC 14.5, creatinine 1.11, troponin peaked at 0.277, proBNP 6300, magnesium 1.8 Imaging: EKG independently interpreted from this morning, shows sinus tachycardia. Assessment and Plan: Active: Acute encephalopathy, likely secondary to infection Sepsis secondary to urinary tract infection MARYANNE on CKD stage III, improving -Mental status improving -Blood culture and urine cultures pending -Continue IV ceftriaxone 2 g every 24 hours -Continue Flomax 0.4 nightly -Head CT did not show any acute process -Continue hold Ambien, on reduced dose of gabapentin Supraventricular tachycardia, likely atrial tachycardia versus atrial fibril lation Hypertensive urgency Type II NSTEMI -Cardiology note reviewed, continue heparin drip for now, monitor APTT, monitor for bleeding -Continue telemetry -Metoprolol was increased to 50 daily, lisinopril increased to 20 daily, added hydralazine 25 3 times daily, also on amlodipine 5 daily Chronic: GERD Chronic hip pain Depression Dyslipidemia DVT ppx: Heparin drip Code status: Full code Anticipated discharge place: Pending clinical course Anticipated discharge time: Pending clinical course Objective - Vital Signs Vital signs: Vital Signs Temp 98.5 F 09/01/24 12:08 Pulse 101 H 09/01/24 12:08 Resp 18 09/01/24 12:08 BP 169/94 09/01/24 12:08 Pulse Ox 95 09/01/24 12:08 FiO2 Intake & Output 08/31/24 09/01/24 09/01/24 18:59 06:59 18:59 Intake Total 54.676 Output Total 500 1400 Balance -500 -1345.324 Weight 55.792 kg Intake: Intake, IV Titration 54.676 Amount Heparin Sod,Pork in 0.45% 54.676 NaCl 25,000 unit In 0.45 % NaCl 1 250ml.bag @ 12 UNITS/KG/HR 6.695 mls/hr IV .Q24H [facility] Rx#: [id number] Output: Urine 500 1400 - Labs CBC & Chem 7: 09/01/24 07:08 09/01/24 07:08 Labs: Abnormal Lab Results - Last 24 Hours (Table) 08/31/24 08/31/24 08/31/24 Range/Units 13:13 13:13 15:03 WBC 18.1 H (3.8-10.6) k/uL Neutrophils # 15.2 H (1.3-7.7) k/uL APTT (22.0-30.0) sec Carbon Dioxide 31 H (22-30) mmol/L Creatinine 1.33 H (0.52-1.04) mg/dL Glucose 114 H (74-99) mg/dL Alkaline Phosphatase 142 H (38-126) U/L Troponin I (0.000-0.034) ng/mL Urine Protein Trace H (Negative) Urine Blood Small H (Negative) Ur Leukocyte Esterase Trace H (Negative) Urine RBC 41 H (0-5) /hpf Urine WBC 8 H (0-5) /hpf 08/31/24 08/31/24 09/01/24 Range/Units 17:59 21:21 07:08 WBC 14.5 H (3.8-10.6) k/uL Neutrophils # 10.9 H (1.3-7.7) k/uL APTT (22.0-30.0) sec Carbon Dioxide (22-30) mmol/L Creatinine (0.52-1.04) mg/dL Glucose (74-99) mg/dL Alkaline Phosphatase (38-126) U/L Troponin I 0.090 H* 0.277 H* (0.000-0.034) ng/mL Urine Protein (Negative) Urine Blood (Negative) Ur Leukocyte Esterase (Negative) Urine RBC (0-5) /hpf Urine WBC (0-5) /hpf 09/01/24 09/01/24 Range/Units 07:08 07:08 WBC (3.8-10.6) k/uL Neutrophils # (1.3-7.7) k/uL APTT 58.3 H (22.0-30.0) sec Carbon Dioxide (22-30) mmol/L Creatinine 1.11 H (0.52-1.04) mg/dL Glucose 101 H (74-99) mg/dL Alkaline Phosphatase (38-126) U/L Troponin I (0.000-0.034) ng/mL Urine Protein (Negative) Urine Blood (Negative) Ur Leukocyte Esterase (Negative) Urine RBC (0-5) /hpf Urine WBC (0-5) /hpf
[2024-09-01] MEDS: GABAPENTIN 100 MG CAP PO SCH (20:36)
[2024-09-01] MEDS: TAMSULOSIN 0.4 MG CAP.ER.24H PO SCH (20:36)
[2024-09-01] MEDS: ATORVASTATIN 20 MG TAB PO SCH (20:52)
[2024-09-02] MEDS: MELATONIN 5 MG TABLET PO PRN (01:32)
[2024-09-02 07:16] LABS: Basophils % (A) 0 %; Eosinophils # (A) 0.3 k/uL (0-0.7); Eosinophils % (A) 2 %; HCT 38.1 % (34.0-46.0); HGB 12.4 gm/dL (11.4-16.0); Lymphocytes % (A) 13 %; MCH 29.4 pg (25.0-35.0); MCHC 32.5 g/dL (31.0-37.0); MCV 90.6 fL (80.0-100.0); Mean Platelet Volume 7.6; Monocytes # (A) 0.7 k/uL (0-1.0); Monocytes % (A) 5 %; Neutrophils # (A) 11.8 k/uL (1.3-7.7); Neutrophils % (A) 78 %; Platelet Count 384 k/uL (150-450); RBC 4.21 m/uL (3.80-5.40); RDW 13.2 % (11.5-15.5); WBC 15.1 k/uL (3.8-10.6)
[2024-09-02 07:45] LABS: African American GFR (CKD) 55 (>60 ml/min/1.73 sqM); Anion Gap 9 mmol/L; Blood Urea Nitrogen 14 mg/dL (7-17); Calcium 9.1 mg/dL (8.4-10.2); Carbon Dioxide 24 mmol/L (22-30); Chloride 102 mmol/L (98-107); Glucose 90 mg/dL (74-99); Magnesium 1.8 mg/dL (1.6-2.3); Non-African American GFR(CKD) 48 (>60 ml/min/1.73 sqM); Potassium 3.8 mmol/L (3.5-5.1); Sodium 135 mmol/L (137-145)
[2024-09-02] MEDS: METOPROLOL SUCCINATE (ER) 50 MG TAB.ER.24H PO SCH (09:17)
[2024-09-02 10:00] LABS: Chol/HDL Ratio 2.06 Ratio; LDL Cholesterol,Calculated 34.4 mg/dL (0.0-131.0); VLDL Calculation 14.96 mg/dL (5.00-40.00)
--- NOTE | 2024-09-02 11:27 | CA ---
Transthoracic Echo Report Name: Shahida Montes Age: 84 Gender: F : 1940 Exam Date: 09/02/2024 08:32 Exam Location: [place] [facility] Ht (in): 63 Wt (lb): 123 Ordering Physician: Irma Long MD Attending/Referring Phys: Freight Engineer Kelley Linares RDCS Procedure CPT: Indications: Atrial Tachycardia Cardiac Hx: Technical Quality: Fair Contrast 1: Total Dose (mL): Contrast 2: Total Dose (mL): MEASUREMENTS (Male / Female) Normal Values 2D ECHO LV Diastolic Diameter PLAX 3.9 cm 4.2 - 5.9 / 3.9 - 5.3 cm LV Systolic Diameter PLAX 2.6 cm IVS Diastolic Thickness 1.2 cm 0.6 - 1.0 / 0.6 - 0.9 cm LVPW Diastolic Thickness 1.2 cm 0.6 - 1.0 / 0.6 - 0.9 cm LV Relative Wall Thickness 0.6 RV Internal Dim ED PLAX 1.0 cm LA Systolic Diameter LX 2.6 cm 3.0 - 4.0 / 2.7 - 3.8 cm LV Diastolic Volume MOD BP 31.6 cm??? 67 - 155 / 56 - 104 cm??? LV Systolic Volume MOD BP 13.6 cm??? 22 - 58 / 19 - 49 cm??? LV Ejection Fraction MOD BP 57.0 % >= 55 % LV Cardiac Index MOD BP 1006.3 cm???/min???m??? LV Diastolic Volume MOD 4C 34.2 cm??? LV Systolic Volume MOD 4C 13.9 cm??? LV Ejection Fraction MOD 4C 59.3 % LV Cardiac Index MOD 4C 1132.3 cm???/min???m??? LV Diastolic Length 4C 6.0 cm LV Systolic Length 4C 5.1 cm LV Diastolic Volume MOD 2C 29.1 cm??? LV Systolic Volume MOD 2C 12.3 cm??? LV Ejection Fraction MOD 2C 57.6 % LV Cardiac Index MOD 2C 934.2 cm???/min???m??? LV Diastolic Length 2C 5.9 cm LV Systolic Length 2C 5.6 cm LA Volume 35.5 cm??? 18 - 58 / 22 - 52 cm??? LA Volume Index 22.5 cm???/m??? 16 - 28 cm???/m??? M-MODE Aortic Root Diameter MM 2.9 cm LA Systolic Diameter MM 2.5 cm LA Ao Ratio MM 0.9 AV Cusp Separation MM 1.4 cm DOPPLER AV Peak Velocity 123.6 cm/s AV Peak Gradient 6.1 mmHg FINDINGS Left Ventricle Left ventricular ejection fraction is estimated at 55-60%. No obvious regional wall motion abnormalities. Left ventricular cavity size normal.Mildly increased left ventricular wall thickness. Right Ventricle Normal right ventricular size and function. Unable to estimate the right ventricular systolic pressure. Right Atrium Normal right atrial size. Left Atrium Mild left atrial dilatation. Mitral Valve Structurally normal mitral valve. Mitral valve thickened. Mild mitral regurgitation. Aortic Valve Trileaflet aortic valve. Trace aortic regurgitation. No aortic stenosis. Diffuse thickening (sclerosis) of the aortic valve cusps without reduced excursion. Tricuspid Valve Structurally normal tricuspid valve. Trace tricuspid regurgitation. No tricuspid stenosis. Pulmonic Valve Structurally normal pulmonic valve. Trace pulmonic regurgitation. No pulmonic stenosis. Pericardium Minimal pericardial effusion (normal variant). Aorta Normal size aortic root and proximal ascending aorta. CONCLUSIONS 1. Normal left ventricular size and systolic function 2. Mild mitral regurgitation Previewed by: Dr. Andrei Gonzalez MD (Electronically Signed) Final Date: 02 September 2024 11:26
[2024-09-02 12:15] VITALS: BMI 17.7
--- NOTE | 2024-09-02 12:55 | P.PN ---
Subjective Progress Note Date: 09/02/24 Patient is a 79-year-old female with hyperlipidemia, hypertension, and recent urologic procedure (08/[address] Morin required Hernandez catheter insertion postop) who came in for altered mental status. Patient was altered during interview and history was taken from patient's daughter at bedside. Patient had urologic surgery with Dr. Dukes last and was placed on a Hernandez catheter. On Sunday 08/26, the Hernandez catheter was removed but patient noted to have low urine output at the time. For a few days urine output gradually improved. However on 08/29, patient became more confused, had less urine output, and had multiple falls that were witnessed. Patient did not lose consciousness during these falls. Patient also had associated abdominal pain and right hip pain after the falls. She did not experience fevers, chills, sweats, hematuria, dysuria, urinary frequency, urinary urgency, shortness of breath, cough, nausea, vomiting, diarrhea, recent travel, or recent sick conta cts. During evaluation at the ED patient suddenly had an elevated heart rate at the 150s with blood pressure dropping to systolics of 70s with lethargy and shortness of breath. Patient was cardioverted x 1 and reverted back to sinus. EKG during elevated heart rate showed atrial tachycardia with a rate of [address]-T changes with good R wave progression QTc 373 MS QRS 83 MS. Chest x-ray showed congestion with bilateral pleural effusions. WBC 18.1 neutrophils 15.2 sodium 138 potassium 4.2 chloride 101 bicarb 31 BUN 16 creatinine 1.33 glucose 114 calcium 9.5 magnesium 2 AST 17 ALT 9 alk phos 142 troponin negative at 0.0 12 albumin 3.8. Urinalysis shows trace protein small blood and trace leukocyte esterase RBC 41 WBC 8. On admission patient was afebrile at 97.8 pulse rate 99 blood pressure 166/95 O2 saturation 94% on room air. Heart rate increased to 154 Duret respiratory rate of 18 blood pressure 76/52 O2 saturation 91% on room air prior to cardioversion. 09/01/2024 Patient seen and examined at bedside. No acute events overnight. She denies any further palpitations or chest pain. She still has some suprapubic pain but denies any other urinary symptoms.WBC 14.5, creatinine 1.11, troponin peaked at 0.277, proBNP 6300, magnesium 1.8. EKG independently interpreted from this morning, shows sinus tachycardia. 09/02/2024 patient seen and examined at bedside. Patient reported improved mentation and feels well that she was not able to sleep well. She has not been ambulating since admission. She complained of left breast pain that is intermittent sharp nonradiating that began this morning. WBC 15.1 with neutrophilic dominance PTT 46.1 sodium 135 creatinine 1.06. Echocardiogram left ventricular ejection fraction at 55 to 60% with no wall motion abnormality and normal wall thickness Review of systems: Pertinent positives and negatives as discussed in HPI, a complete review of systems was performed and all other systems are negative. Pertinent imaging and labs reviewed. Physical examination: Vital signs reviewed General: non toxic, no distress Derm: no unusual rashes/lesions, warm, small ulceration inferior to the left nipple negative for discharge, bleeding, or erythema Head: atraumatic, normocephalic, symmetric Eyes: EOMI, anicteric sclera, pupils equal round reactive to light ENT: Nose and ears atraumatic Neck: No cervical lymphadenopathy, trachea midline, supple Mouth: no lip lesion, mucus membranes moist Cardiovascular: S1S2 reg, no murmur Lungs: CTA bilateral, no rhonchi, no rales, no accessory muscle use Abdominal: soft, nontender to palpation, no guarding Ext: muscle strength 5 out of 5 in all 4 extremities grossly, no gross muscle atrophy, no contractures, positive dorsalis pedis pulse bilateral, no extremity edema Neuro: CN II-XI grossly intact, no gross focal neuro deficits Psych: Alert and oriented x3, appropriate affect and mood Assessment/Plan: 84-year-old female with recent urologic procedure with Hernandez catheter placement who is here for the evaluation of acute encephalopathy. In the ER she had an episode of atrial tachycardia status post cardioversion. #. Acute encephalopathy, likely secondary to infection, improving #. Sepsis secondary to urinary tract infection #. MARYANNE on CKD stage III, improving -Blood culture pending -Urine cultures negative -CBC and BMP in the a.m. -Continue IV ceftriaxone 2 g every 24 hours, only continue antibiotics for 5 days -Continue Flomax 0.4 nightly -Melatonin 5 mg p.o. nightly for insomnia -Mirtazapine 15 mg p.o. nightly for insomnia -Head CT did not show any acute process -Continue hold Ambien, on reduced dose of gabapentin #. Debility -Consult PT OT #. Supraventricular tachycardia, likely atrial tachycardia versus atrial fibrillation #. Hypertensive urgency, improved #. Type II NSTEMI - Cardiology consulted - Continue heparin drip, monitor for bleeding, monitor APTT -Monitor APTT, monitor for bleeding -Echocardiogram left ventricular ejection fraction at 55 to 60% with no wall motion abnormality and normal wall thickness -Continue telemetry -Metoprolol was increased to 50 daily, lisinopril increased to 20 daily, added hydralazine 25 3 times daily, also on amlodipine 5 daily #. Left breast ulcer, superficial Ulcer is not open and does not show any signs of inflammation, bleeding. Patie nt is stable Monitor for now Advised patient to wear clothing that does not irritate the skin F: Oral intake E: None N: Heart healthy diet A: Requires assistance with ambulation DVT prophylaxis: Heparin drip GI prophylaxis: Protonix 40 mg p.o. daily Irma Long MD PGY-1/News Operations Manager Dictation was produced using [employer] dictation software. please excuse any grammatical, word or spelling errors. I have seen and evaluated the patient today. Discussed with the resident and agree with the residents finding and plan as documented in the resident's note. Changes highlighted in blue font. Objective - Vital Signs Vital signs: Vital Signs Temp 98.1 F 09/02/24 09:12 Pulse 111 H 09/02/24 11:15 Resp 16 09/02/24 11:15 BP 144/69 09/02/24 11:15 Pulse Ox 94 L 09/02/24 11:15 FiO2 Intake & Output 09/01/24 09/02/24 09/02/24 18:59 06:59 18:59 Intake Total 54.676 113.927 Output Total 1530 Balance -1475.324 113.927 Weight 45.5 kg 45.5 kg Intake: Intake, IV Titration 54.676 113.927 Amount Heparin Sod,Pork in 0.45% 54.676 113.927 NaCl 25,000 unit In 0.45 % NaCl 1 250ml.bag @ 12 UNITS/KG/HR 6.695 mls/hr IV .Q24H [facility] Rx#: [id number] Output: Urine 1530 Other: Voiding Method Indwelling Catheter - Labs CBC & Chem 7: 09/02/24 06:15 09/02/24 06:15 Labs: Abnormal Lab Results - Last 24 Hours (Table) 09/02/24 09/02/24 09/02/24 Range/Units 06:15 06:15 06:15 WBC 15.1 H (3.8-10.6) k/uL Neutrophils # 11.8 H (1.3-7.7) k/uL APTT 46.1 H (22.0-30.0) sec Sodium 135 L (137-145) mmol/L Creatinine 1.06 H (0.52-1.04) mg/dL Microbiology - Last 24 Hours (Table) 08/31/24 20:40 Urine Culture - Final Urine,Catheterized 08/31/24 18:03 Blood Culture - Preliminary Blood
[2024-09-02] MEDS: APIXABAN 2.5 MG TABLET PO SCH (13:42)
--- NOTE | 2024-09-02 14:33 | P.PN ---
Subjective HISTORY OF PRESENT ILLNESS: This is an 84-year-old female who presented to the hospital with altered mental status. Patient examined this morning at the bedside. Patient currently denies chest pain or pressure. She denies shortness of breath. She remains on IV heparin. Telemetry reveals sinus mechanism. She is tachycardic with a heart rate between 05604. Echocardiogram completed revealing ejection fraction of 55 to 60%, mild MR, trace AI, trace TR. PHYSICAL EXAM: VITAL SIGNS: Reviewed. GENERAL: Well-developed in no acute distress. NECK: Supple. No JVD or thyromegaly LUNGS: Respirations even and unlabored. Lungs essentially clear to auscultation bilaterally. HEART: Tachycardic. Regular rate and rhythm. S1 and S2 heard. EXTREMITIES: Normal range of motion. No clubbing or cyanosis. Peripheral pulses intact. No lower extremity edema ASSESSMENT: Tachycardia, likely new onset atrial fibrillation, currently maintaining sinus tachycardia Urinary tract infection Hypertension Elevated troponins, type II RI, no evidence of acute coronary syndrome Metabolic encephalopathy Acute kidney injury PLAN: Continue telemetry monitoring Discontinue IV heparin. Transition to Eliquis 2.5 mg twice a day Continue aspirin Change beta-florecita to metoprolol tartrate 50 mg twice a day Further recommendations pending patient course Nurse practitioner note has been reviewed by physician. Signing provider agrees with the documented findings, assessment, and plan of care documented by JAILER/TRAINING OFFICER as a scribe. Objective - Vital Signs Vital signs: Vital Signs Temp 98.1 F 09/02/24 09:12 Pulse 111 H 09/02/24 11:15 Resp 16 09/02/24 11:15 BP 144/69 09/02/24 11:15 Pulse Ox 94 L 09/02/24 11:15 FiO2 Intake & Output 09/01/24 09/02/24 09/02/24 18:59 06:59 18:59 Intake Total 54.676 113.927 Output Total 1530 Balance -1475.324 113.927 Weight 45.5 kg Intake: Intake, IV Titration 54.676 113.927 Amount Heparin Sod,Pork in 0.45% 54.676 113.927 NaCl 25,000 unit In 0.45 % NaCl 1 250ml.bag @ 12 UNITS/KG/HR 6.695 mls/hr IV .Q24H [facility] Rx#: [id number] Output: Urine 1530 Other: Voiding Method Indwelling Catheter - Labs CBC & Chem 7: 09/02/24 06:15 09/02/24 06:15 Labs: Abnormal Lab Results - Last 24 Hours (Table) 09/02/24 09/02/24 09/02/24 Range/Units 06:15 06:15 06:15 WBC 15.1 H (3.8-10.6) k/uL Neutrophils # 11.8 H (1.3-7.7) k/uL APTT 46.1 H (22.0-30.0) sec Sodium 135 L (137-145) mmol/L Creatinine 1.06 H (0.52-1.04) mg/dL Microbiology - Last 24 Hours (Table) 08/31/24 20:40 Urine Culture - Final Urine,Catheterized 08/31/24 18:03 Blood Culture - Preliminary Blood
[2024-09-02] MEDS: polyethylene glycoL 3350 17 GM POWD.PACK PO PRN (17:21)
[2024-09-02] MEDS: traMADol 50 MG TAB PO PRN (17:21)
[2024-09-02] MEDS: MIRTAZAPINE 15 MG TAB PO SCH (21:42)
[2024-09-02] MEDS: METOPROLOL TARTRATE 50 MG TAB PO SCH (21:43)
[2024-09-02] MEDS: MELATONIN 5 MG TABLET PO SCH (21:43)
[2024-09-03 07:03] LABS: Basophils % (A) 0 %; Eosinophils # (A) 0.2 k/uL (0-0.7); Eosinophils % (A) 1 %; HCT 39.5 % (34.0-46.0); HGB 12.8 gm/dL (11.4-16.0); Lymphocytes # (A) 1.7 k/uL (1.0-4.8); Lymphocytes % (A) 12 %; MCH 29.4 pg (25.0-35.0); MCHC 32.3 g/dL (31.0-37.0); Mean Platelet Volume 6.8; Monocytes # (A) 0.7 k/uL (0-1.0); Monocytes % (A) 5 %; Neutrophils % (A) 80 %; Platelet Count 385 k/uL (150-450); RBC 4.34 m/uL (3.80-5.40); RDW 13.3 % (11.5-15.5); WBC 13.8 k/uL (3.8-10.6)
[2024-09-03 07:17] LABS: African American GFR (CKD) 57 (>60 ml/min/1.73 sqM); Anion Gap 8 mmol/L; Blood Urea Nitrogen 14 mg/dL (7-17); Calcium 9.4 mg/dL (8.4-10.2); Carbon Dioxide 27 mmol/L (22-30); Chloride 101 mmol/L (98-107); Glucose 101 mg/dL (74-99); Non-African American GFR(CKD) 49 (>60 ml/min/1.73 sqM); Potassium 3.6 mmol/L (3.5-5.1); Sodium 136 mmol/L (137-145)
[2024-09-03 11:14] VITALS: RESP 16; TEMP 98.2
[2024-09-03 11:56] VITALS: BP 107/63; PULSE 82
--- NOTE | 2024-09-03 12:46 | P.PN ---
Subjective HISTORY OF PRESENT ILLNESS: This is an 84-year-old female who presented to the hospital with altered mental status. Patient examined this morning at the bedside. Patient currently denies chest pain or pressure. She denies shortness of breath. She remains on IV heparin. Telemetry reveals sinus mechanism. She is tachycardic with a heart rate between 47377. Echocardiogram completed revealing ejection fraction of 55 to 60%, mild MR, trace AI, trace TR. 09/03/2024 Patient examined this morning at the bedside. Patient denies chest pain or pressure. She denies shortness of breath. Blood pressure stable at 125/78. Telemetry reveals sinus mechanism with a heart rate in the 90s. PHYSICAL EXAM: VITAL SIGNS: Reviewed. GENERAL: Well-developed in no acute distress. NECK: Supple. No JVD or thyromegaly LUNGS: Respirations even and unlabored. Lungs essentially clear to auscultation bilaterally. HEART: Tachycardic. Regular rate and rhythm. S1 and S2 heard. EXTREMITIES: Normal range of motion. No clubbing or cyanosis. Peripheral p ulses intact. No lower extremity edema ASSESSMENT: Tachycardia, likely new onset atrial fibrillation, currently maintaining sinus mechanism Urinary tract infection Hypertension Elevated troponins, type II PA, no evidence of acute coronary syndrome Metabolic encephalopathy Acute kidney injury PLAN: Continue telemetry monitoring Patient is stable for discharge home today from a cardiac standpoint Patient to follow-up postdischarge in the office Nurse practitioner note has been reviewed by physician. Signing provider agrees with the documented findings, assessment, and plan of care documented by BRAND AMBASSADOR PROMOTIONAL MODEL as a scribe. Objective - Vital Signs Vital signs: Vital Signs Temp 98.2 F 09/03/24 09:35 Pulse 91 09/03/24 09:35 Resp 16 09/03/24 09:35 BP 125/78 09/03/24 09:35 Pulse Ox 96 09/03/24 09:35 FiO2 Intake & Output 09/02/24 09/03/24 09/03/24 18:59 06:59 18:59 Intake Total 20 Output Total 250 950 Balance -250 -930 Weight 45.5 kg 54.6 kg Intake: IV 20 Invasive Line 2 20 Output: Urine 250 950 Other: Voiding Method Indwelling Catheter Indwelling Catheter Indwelling Catheter - Labs CBC & Chem 7: 09/03/24 06:07 09/03/24 06:07 Labs: Abnormal Lab Results - Last 24 Hours (Table) 09/03/24 09/03/24 Range/Units 06:07 06:07 WBC 13.8 H (3.8-10.6) k/uL Neutrophils # 11.0 H (1.3-7.7) k/uL Sodium 136 L (137-145) mmol/L Glucose 101 H (74-99) mg/dL Microbiology - Last 24 Hours (Table) 08/31/24 18:03 Blood Culture - Preliminary Blood 08/31/24 20:40 Urine Culture - Final Urine,Catheterized
--- NOTE | 2024-09-03 14:33 | P.DS ---
Providers Date of admission: 08/31/24 16:48 Expected date of discharge: 09/03/24 Attending physician: Desean Mayer Consults: 08/31/24 16:48 Consult Physician Urgent Consulting Provider: [facility] Consult Reason/Comments: A-fib with rapid ventricular response Do you want consulting provider notified?: Yes Primary care physician: Ama [facility] Course: Final Diagnosis: #. Acute encephalopathy, secondary to infection, resolved #. Sepsis secondary to urinary tract infection, resolved #. MARYANNE on CKD stage III, resolved #. Debility #. Supraventricular tachycardia, likely atrial tachycardia versus atrial fibrillation, stable #. Hypertensive urgency, resolved #. Type II NSTEMI, resolved #. Left breast ulcer, superficial, stable Hospital Course: Patient is a 79-year-old female with hyperlipidemia, hypertension, and recent urologic procedure (08/[address] Morin required Hernandez catheter insertion postop) who came in for altered mental status. Patient was altered during interview and history was taken from patient's daughter at bedside. Patient had urologic surgery with Dr. Dukes last and was placed on a Hernandez heidy ter. On Sunday 08/26, the Hernandez catheter was removed but patient noted to have low urine output at the time. For a few days urine output gradually improved. However on 08/29, patient became more confused, had less urine output, and had multiple falls that were witnessed. Patient did not lose consciousness during these falls. Patient also had associated abdominal pain and right hip pa in after the falls. She did not experience fevers, chills, sweats, hematuria, dysuria, urinary frequency, urinary urgency, shortness of breath, cough, nausea, vomiting, diarrhea, recent travel, or recent sick contacts. During evaluation at the ED patient suddenly had an elevated heart rate at the 150s with blood pressure dropping to systolics of 70s with lethargy and shortness of breath. Patient was cardioverted x 1 and reverted back to sinus. EKG during elevated heart rate showed atrial tachycardia with a rate of [address]-T changes with good R wave progression QTc 373 MS QRS 83 MS. Chest x-ray showed congestion with bilateral pleural effusions. WBC 18.1 neutrophils 15.2 sodium 138 potassium 4.2 chloride 101 bicarb 31 BUN 16 creatinine 1.33 glucose 114 calcium 9.5 magnesium 2 AST 17 ALT 9 alk phos 142 troponin negative at 0.0 12 albumin 3.8. Urinalysis shows trace protein small blood and trace leukocyte esterase RBC 41 WBC 8. On admission patient was afebrile at 97.8 pulse rate 99 blood pressure 166/95 O2 saturation 94% on room air. Heart rate increased to 154 Duret respiratory rate of 18 blood pressure 76/52 O2 saturation 91% on room air prior to cardioversion. Patient was evaluated for acute encephalopathy likely secondary to infection from UTI, MARYANNE, debility and supraventricular tachycardia. Cardiology was consulted and heparin drip was initiated. Aspirin, Lipitor, metoprolol succinate, lisinopril were continued. Amlodipine added to medication regimen. IV ceftriaxone initiated and blood and urine cultures ordered and were negative. CT Scan was negative for any acute process. IV heparin discontinued after 48 hours and transition to Eliquis 2.5 mg p.o. twice daily. Beta-florecita switched to metoprolol to tartrate. PT OT consulted and reported patient was very independent with ADLs. Patient symptoms improved and did not have any arrhythmia episodes throughout hospital stay. Patient is cleared for discharge today. Patient prescribed cefdinir for 2 more days and will continue on Eliquis, and metoprolol to tartrate. Was advised to continue the rest of home medications. Patient advised to follow-up with director rehabilitation program and PCP on outpatient basis. Physical examination: Vital signs reviewed General: non toxic, no distress, appears at stated age Derm: no unusual rashes/lesions, warm Head: atraumatic, normocephalic, symmetric Eyes: EOMI, anicteric sclera, pupils equal round reactive to light ENT: Nose and ears atraumatic Neck: No cervical lymphadenopathy, trachea midline, supple Mouth: no lip lesion, mucus membranes moist Cardiovascular: S1S2 reg, no murmur Lungs: CTA bilateral, no rhonchi, no rales, no accessory muscle use Abdominal: soft, nondistended, nontender to palpation, no guarding Ext: muscle strength 5 out of 5 in all 4 extremities grossly, no gross muscle atrophy, no contractures, positive dorsalis pedis pulse bilateral, no extremity edema Neuro: CN II-XI grossly intact, no gross focal neuro deficits Psych: Alert, oriented, appropriate affect and mood A total of 33 minutes of time were spent preparing this complex discharge summary. Patient was discharged on 09/03/2024 at 951. I have seen and evaluated the patient today. Discussed with the resident and agree with the residents finding and plan as documented in the resident's note. Changes highlighted in blue font. Patient Condition at Discharge: Good Plan - Discharge Summary New Discharge Prescriptions: New Metoprolol Tartrate [Lopressor] 50 mg PO BID #120 tab Gabapentin [Neurontin] 100 mg PO HS #30 cap amLODIPine [Norvasc] 10 mg PO DAILY #60 tab lisinopriL [Zestril] 20 mg PO DAILY #60 tab Cefdinir [Omnicef] 300 mg PO Q12HR #4 capsule Apixaban [Eliquis] 2.5 mg PO BID #120 tab Melatonin 5 mg PO HS #60 tab Continue Atorvastatin [Lipitor] 20 mg PO HS Pantoprazole Sodium [Protonix] 20 mg PO DAILY HYDROcodone/APAP 10-325MG [[place] 10-325] 1 tab PO TID Escitalopram [Lexapro] 5 mg PO DAILY L.acidoph,Paracasei, B.lactis [Probiotic] 1 cap PO DAILY polyethylene glycoL 3350 [Miralax] 17 gm PO DAILY Hydrocortisone Cream [Hydrocortisone 2.5% Cream] 1 applic TOPICAL BID Tamsulosin [Flomax] 0.4 mg PO HS Discontinued Aspirin [Adult Low Dose Aspirin EC] 81 mg PO DAILY Glycopyrrolate [Robinul Forte] 2 mg PO TID Metoprolol Succinate (ER) [Toprol XL] 25 mg PO DAILY Zolpidem [Ambien] 2.5 mg PO HS Gabapentin [Neurontin] 300 mg PO HS lisinopriL [Zestril] 5 mg PO DAILY Sulfamethox-Tmp 800-160Mg [Bactrim DS 800-160 mg] 1 tab PO BID Cyclobenzaprine [Flexeril] 10 mg PO BID Discharge Medication List Atorvastatin [Lipitor] 20 mg PO HS 12/22/20 [History] Pantoprazole Sodium [Protonix] 20 mg PO DAILY 01/02/21 [History] HYDROcodone/APAP 10-325MG [[place] 10-325] 1 tab PO TID 05/19/21 [History] Escitalopram [Lexapro] 5 mg PO DAILY 10/11/23 [History] Hydrocortisone Cream [Hydrocortisone 2.5% Cream] 1 applic TOPICAL BID 07/17/24 [History] L.acidoph,Paracasei, B.lactis [Probiotic] 1 cap PO DAILY 07/17/24 [History] Tamsulosin [Flomax] 0.4 mg PO HS 07/17/24 [History] polyethylene glycoL 3350 [Miralax] 17 gm PO DAILY 08/31/24 [History] Apixaban [Eliquis] 2.5 mg PO BID #120 tab 09/03/24 [Rx] Cefdinir [Omnicef] 300 mg PO Q12HR #4 capsule 09/03/24 [Rx] Gabapentin [Neurontin] 100 mg PO HS #30 cap 09/03/24 [Rx] Melatonin 5 mg PO HS #60 tab 09/03/24 [Rx] Metoprolol Tartrate [Lopressor] 50 mg PO BID #120 tab 09/03/24 [Rx] amLODIPine [Norvasc] 10 mg PO DAILY #60 tab 09/03/24 [Rx] lisinopriL [Zestril] 20 mg PO DAILY #60 tab 09/03/24 [Rx] Follow up Appointment(s)/Referral(s): Lopez Lanier MD [STAFF PHYSICIAN] - 1 Week (Please schedule follow up with your director rehabilitation program. ) Ama Frederick MD [Primary Care Provider] - 1-2 days (Please call to schedule follow up appointment. ) Patient Instructions/Handouts: A-fib (Atrial Fibrillation) (DC) Activity/Diet/Wound Care/Special Instructions: Please PCP and Biomedical Equipment Specialist Discharge Disposition: HOME SELF-CARE
== END 2024-09-03 14:40 | disposition home or self-care (01) | DRG 871 ==
LOC: EC 12:09 → 3SCARD 16:48
PROVIDERS: ADMIT Student in an Organized Health Care Education/Training Program; ATTEND Student in an Organized Health Care Education/Training Program
DX: A41.9 Sepsis, unspecified organism (principal); G93.41 Metabolic encephalopathy; I21.A1 Myocardial infarction type 2; N39.0 Urinary tract infection, site not specified; I47.19 Other supraventricular tachycardia; N17.9 Acute kidney failure, unspecified; I42.9 Cardiomyopathy, unspecified; I16.0 Hypertensive urgency; K21.9 Gastro-esophageal reflux disease without esophagitis; F41.9 Anxiety disorder, unspecified; N18.30 Chronic kidney disease, stage 3 unspecified; E78.5 Hyperlipidemia, unspecified; I48.91 Unspecified atrial fibrillation; N61.1 Abscess of the breast and nipple; F32.A Depression, unspecified; G47.00 Insomnia, unspecified; G89.29 Other chronic pain; M25.559 Pain in unspecified hip; I12.9 Hypertensive chronic kidney disease with stage 1 through stage 4 chronic kidney disease, or unspecified chronic kidney disease; W19.XXXA Unspecified fall, initial encounter; Y92.009 Unspecified place in unspecified non-institutional (private) residence as the place of occurrence of the external cause; Z79.01 Long term (current) use of anticoagulants; Z79.82 Long term (current) use of aspirin; Z79.899 Other long term (current) drug therapy; Z87.440 Personal history of urinary (tract) infections; Z87.891 Personal history of nicotine dependence; Z88.0 Allergy status to penicillin; Z91.040 Latex allergy status; Z88.8 Allergy status to other drugs, medicaments and biological substances; Z88.1 Allergy status to other antibiotic agents
CPT/HCPCS: 36415; 70450; 71046; 73521; 80048; 80053; 80061; 81001; 82607; 83036; 83735; 83880; 84145; 84443; 84484; 85025; 85730; 87040; 87086; 93005; 93306; 96365; 96366; 96368; 96375; 96376; 99152; 99291